=== PATIENT | female | born 1940 | race African-American/Black ===

== ENCOUNTER → 2018-04-04 | Outpatient (CLI) | payer MEDICARE ==
[2015-11-23 14:20] VITALS: BP 166/90
[~2018-04-04] MED LIST: AMLO5TAB4 PO; AMLO5TAB7 PO; ASPI-482 PO; ATOR10TA60 PO; BIOT10005 PO; CHOL1CRY3 MC; CHOL5000 PO; COD1CAPS2 PO; HYDR-2761 PO; LEVO100T PO; LEVO100T5 PO; LISI-334 PO; METO-239 PO; OMEG1CAP27 PO; PANT40TA3 PO; PREN1TAB58 PO; SUCR1TAB35 PO; [UNRECOGNIZED DRUG - CODE] MC
[2018-04-04 12:52] LABS: BASO # 0.2 x10^3/uL (0.0-0.2); BASO % 1 % (0-3); EOS # 0.1 x10^3/uL (0.0-0.7); EOS % 1 % (0-3); HEMATOCRIT 43.8 % (36.0-47.0); HEMOGLOBIN 14.9 g/dL (12.0-15.5); LYMPH # 1.6 x10^3/uL (1.0-4.8); LYMPH % 12 % (24-48); MEAN CORPUSCULAR HEMOGLOBIN 31 pg (25-35); MEAN CORPUSCULAR HGB CONC 34 g/dL (31-37); MEAN CORPUSCULAR VOLUME 90 fL (79-100); MONO # 1.3 x10^3/uL (0.0-1.1); MONO % 9 % (0-9); NEUT # 10.6 x10^3uL (1.8-7.7); NEUT % 77 % (31-73); PLATELET COUNT 180 x10^3/uL (140-400); RED BLOOD COUNT 4.85 x10^6/uL (3.50-5.40); RED CELL DISTRIBUTION WIDTH 14.8 % (11.5-14.5); WHITE BLOOD COUNT 13.7 x10^3/uL (4.0-11.0)
== END | disposition home or self-care (01) ==
LOC: LAB 12:11
PROVIDERS: ATTEND Physical Medicine & Rehabilitation
DX: M25.531 Pain in right wrist (principal); R22.31 Localized swelling, mass and lump, right upper limb
CPT/HCPCS: 36415; 84550; 85025

== ENCOUNTER 2018-12-03 10:12 | Emergency (ER) | payer MEDICARE ==
[~2018-12-03] VITALS: Ht 167.6 cm; Wt 72.6 kg
[~2018-12-03 10:12] MED LIST changes: +AMLO5TAB10 PO; -AMLO5TAB7 PO; +CHOL10003 PO; +HYDR12.575 PO; +MV-M1TAB54 PO; -PANT40TA3 PO; +PANT40TA77 PO; +VIT1CAPS44 PO
[2018-12-03 10:26] VITALS: BP 178/79
--- NOTE | 2018-12-03 10:54 | RAD ---
WRIST 3V LEFT History: Smashed left wrist. Pain. Technique: 3 views left wrist. Comparison: None. Findings: Normal alignment. No fracture. Soft tissues unremarkable. Mild distal radial ulnar degenerative changes. Moderate first carpometacarpal DJD. Impression: 1. No acute osseous abnormality. 2. First carpometacarpal and distal radial ulnar DJD. Electronically signed by: Deshaun Rain DO (12/03/2018 10:50 AM) [facility]
--- NOTE | 2018-12-03 11:07 | PHYS DOC ---
Past Medical History Past Medical History: Hypertension, Hypothyroid, MT, P.U.D. Past Surgical History: Appendectomy, Hysterectomy, Other Additional Past Surgical Histo: THYROIDECTOMY, CARDIAC STENT, TUMOR REMOVAL (STOMACH) Alcohol Use: Rarely Drug Use: None Adult General Chief Complaint Chief Complaint: HAND PROBLEM HPI HPI Patient is a 78 year old female who presents with on November 22 she had a cardiac catheter done in states that the nurse had put her wrist down on the table hard. Patient states after that she was having left wrist pain and some tingling. Patient states the tingling and/or numbness has resolved but she still has some bruising to the left wrist on the radial side. Patient states she just wants to make sure that it is not broken. She rates her pain an 8 out of 10 and states it just aches. Review of Systems Review of Systems Constitutional: Denies fever or chills [] Musculoskeletal: Left wrist pain. Denies back pain or joint pain [] Integument: Denies rash or skin lesions [] Neurologic: Denies headache, focal weakness or sensory changes [] All other systems were reviewed and found to be within normal limits, except as documented in this note. Allergies Allergies Allergies Coded Allergies Type Severity Reaction Last Updated Verified codeine Allergy Intermediate 08/08/13 Yes egg Allergy Intermediate 11/20/18 Yes Physical Exam Physical Exam Constitutional: Well developed, well nourished, no acute distress, non-toxic appearance. [] Skin: Left lateral wrist nickel sized bruise. Warm, dry, no erythema, no rash. [] Extremities: Left lateral radial wrist tenderness, no cyanosis, no clubbing, ROM intact, no edema. [] Neurologic: Alert and oriented X 3, normal motor function, normal sensory function, no focal deficits noted. [] Psychologic: Affect normal, judgement normal, mood normal. [] Current Patient Data Vital Signs Vital Signs Date Time Temp Pulse Resp B/P (MAP) Pulse Ox O2 Delivery O2 Flow Rate FiO2 12/03/18 10:26 98.4 77 18 178/79 (112) 99 Room Air 98.4 EKG EKG [] Radiology/Procedures Radiology/Procedures [] Impressions: [facility] [address] [place] [address] IMAGING REPORT Signed PATIENT: LISA FLORES ACCOUNT: [id number] : 1940 LOCATION: ER AGE: 78 SEX: F EXAM STATUS: REG ER ORD. PHYSICIAN: DIANE RAMIRES APRN REASON: PAIN, SMASHED LEFT WRIST PROCEDURE: WRIST 3V LEFT WRIST 3V LEFT History: Smashed left wrist. Pain. Technique: 3 views left wrist. Comparison: None. Findings: Normal alignment. No fracture. Soft tissues unremarkable. Mild distal radial ulnar degenerative changes. Moderate first carpometacarpal DJD. Impression: 1. No acute osseous abnormality. 2. First carpometacarpal and distal radial ulnar DJD. Electronically signed by: Deshaun Rain DO (12/03/2018 10:50 AM) [facility] DICTATED and SIGNED BY: DESHAUN RAIN DO DATE: 12/03/18 1050 Course & Med Decision Making Course & Med Decision Making Patient is a 78 year old female who presents with on November 22 she had a cardiac catheter done in states that the nurse had put her wrist down on the table hard. Patient states after that she was having left wrist pain and some tingling. Patient states the tingling and/or numbness has resolved but she still has some bruising to the left wrist on the radial side. Patient states she just wants to make sure that it is not broken. She rates her pain an 8 out of 10 and states it just aches. Radial pulses strong and present. There is no swelling in the extremity. Cap refill less than 3 seconds. Patient denies any numbness or tingling. Patient denies the skin turning colors. Patient denies the extremity going cold. Skin is pink warm and dry. Patient has full range of motion of the wrist and all fingers. There is slight bruising to the lateral radial wrist but no swelling. Patient states it is only slightly tender to palpation. X-ray shows 1. No acute osseous abnormality. 2. First carpometacarpal and distal radial ulnar DJD. Patient to use Tylenol or Tylenol arthritis [id number]. Patient is on aspirin 81 mg. Patient to follow-up with her primary care provider. Dragon Disclaimer Dragon Disclaimer This electronic medical record was generated, in whole or in part, using a voice recognition dictation system. Departure Departure Impression: Primary Impression: Wrist pain, left Disposition: 01 HOME, SELF-CARE Condition: STABLE Referrals: KRISTINE JAMES MD (PCP) Patient Instructions: Wrist Pain Additional Instructions: Follow-up with primary care provider. Child using Tylenol arthritis and ice. DIANE RAMIRES APRN Dec 03, 2018 11:07
== END 2018-12-03 11:37 | disposition home or self-care (01) ==
LOC: ER 10:12
DX: M25.532 Pain in left wrist (principal); R20.0 Anesthesia of skin; I10 Essential (primary) hypertension; E03.9 Hypothyroidism, unspecified; I25.2 Old myocardial infarction; Z95.5 Presence of coronary angioplasty implant and graft; Z88.5 Allergy status to narcotic agent; Z91.012 Allergy to eggs
CPT/HCPCS: 73110; 99284

== ENCOUNTER 2019-02-16 13:21 | Inpatient (IN) | payer MEDICARE ==
[~2019-02-16] VITALS: Ht 167.6 cm; Wt 82.7 kg
[~2019-02-16 13:21] MED LIST changes: -COD1CAPS2 PO; +COD1CAPS6 PO
[2019-02-16 13:34] LABS: CREATININE ISTAT 1.5 mg/dL (0.5-1.4); ION CA ISTAT 1.2 mmol/L (1.13-1.32); POTASSIUM ISTAT 3.8 mmol/L (3.5-5.0)
[2019-02-16 13:39] LABS: BASO # 0.1 x10^3/uL (0.0-0.2); BASO % 1 % (0-3); EOS # 0.3 x10^3/uL (0.0-0.7); EOS % 3 % (0-3); HEMOGLOBIN 15.9 g/dL (12.0-15.5); LYMPH # 3.4 x10^3/uL (1.0-4.8); LYMPH % 32 % (24-48); MEAN CORPUSCULAR HEMOGLOBIN 30 pg (25-35); MEAN CORPUSCULAR HGB CONC 33 g/dL (31-37); MEAN CORPUSCULAR VOLUME 90 fL (79-100); MONO # 0.7 x10^3/uL (0.0-1.1); MONO % 7 % (0-9); NEUT # 6.1 x10^3/uL (1.8-7.7); NEUT % 58 % (31-73); PLATELET COUNT 181 x10^3/uL (140-400); RED BLOOD COUNT 5.34 x10^6/uL (3.50-5.40); RED CELL DISTRIBUTION WIDTH 14.6 % (11.5-14.5); WHITE BLOOD COUNT 10.6 x10^3/uL (4.0-11.0)
[2019-02-16] MEDS: MORPHINE SULFATE 4 MG/ML VIAL. IV/SQ PRN ×2 (13:43→15:05)
[2019-02-16 13:47] LABS: CALCIUM 9.9 mg/dL (8.5-10.1); CREATININE 1.6 mg/dL (0.6-1.0); GFR 37.9; POTASSIUM 3.8 mmol/L (3.5-5.1)
[2019-02-16 13:53] LABS: ALBUMIN 3.2 g/dL (3.4-5.0); ALBUMIN/GLOBULIN RATIO 0.8 (1.0-1.7); TOTAL BILIRUBIN 0.6 mg/dL (0.2-1.0)
[2019-02-16] MEDS ORDERED: IV NORMAL SALINE 1000ML BAG 1,000 ML IV ONE (14:00)
--- NOTE | 2019-02-16 14:00 | RAD ---
EXAM: CHEST ONE VIEW. HISTORY: Chest pain. COMPARISON: 11/19/2018. FINDINGS: A frontal view of the chest is obtained. The lungs are expanded to the 11th posterior interspaces. There are no confluent infiltrates. There is a calcified granuloma in the left apex. There is no pneumothorax or pleural effusion. The heart is not enlarged. There are atherosclerotic calcifications of the aorta. IMPRESSION: 1. Hyperinflation. Correlate for air trapping. No confluent infiltrates. Electronically signed by: Stephany Be MD (02/16/2019 1:58 PM) [facility]
--- NOTE | 2019-02-16 14:40 | RAD ---
EXAM: CT OF THE CHEST, ABDOMEN AND PELVIS WITHOUT CONTRAST. HISTORY: Chest and abdominal pain. Concern for dissection. Acute renal failure. TECHNIQUE: Computed tomography of the chest, abdomen and pelvis was performed without intravenous contrast. COMPARISON: None. FINDINGS: Bone windows reveal no suspicious lesions. There is moderate to severe central canal stenosis from L3 through S1. There are no pathologically enlarged mediastinal or axillary lymph nodes. Calcified mediastinal lymph nodes are likely secondary to old granulomatous disease. There is no pleural or pericardial effusion. The heart is not enlarged. There are atherosclerotic calcifications of the coronary arteries. The thoracic and abdominal aorta are normal in caliber. There are mild to moderate atherosclerotic calcifications. There is no evidence of dissection or intramural hematoma. There is no retroperitoneal hematoma. Lung windows reveal a calcified granuloma in the left upper lobe. There are no acute infiltrates. The liver, gallbladder, pancreas, adrenal glands and spleen are unremarkable without contrast. Both kidneys are unremarkable without hydronephrosis. Sigmoid diverticulosis is mild. There is no evidence of appendicitis. The uterus is surgically absent. There is no small bowel obstruction. IMPRESSION: 1. No aortic aneurysm. No evidence of dissection or intramural hematoma by noncontrast CT. 2. Moderate to severe lumbar degenerative changes result in moderate to severe central canal stenosis from L3 through S1. *One or more of the following individualized dose reduction techniques were utilized for this examination: 1. Automated exposure control. 2. Adjustment of the mA and/or kV according to patient size. 3. Use of iterative reconstruction technique. Electronically signed by: Stephany Be MD (02/16/2019 2:37 PM) [facility]
--- NOTE | 2019-02-16 15:04 | PHYS DOC ---
Past Medical History Past Medical History: A-Fib, Hypertension, Hyperthyroid, LA Past Surgical History: Appendectomy, Hysterectomy, Other Additional Past Surgical Histo: STENT Alcohol Use: None Drug Use: None The HEART Score for CP Pts Risk Factors: Risk Factors: DM, Current or recent (<one month) smoker, HTN, HLP, family history of CAD, obesity. Risk Scores: Score 0 - 3: 2.5% MACE over next 6 weeks - Discharge Home Score 4 - 6: 20.3% MACE over next 6 weeks - Admit for Clinical Observation Score 7 - 10: 72.7% MACE over next 6 weeks - Early Invasive Strategies Adult General Chief Complaint Chief Complaint: SYNCOPE HPI HPI Patient is a 78-year-old female who presents with complaint of upper abdominal pain radiating into her back that started shortly prior to arrival. Patient reportedly had a syncopal episode and after coming to, had the pain. Patient also indicates that she has pain in both her arms and states that she feels like she is having a difficult time breathing. She rates her pain to be a 9 out of 10. She denies any actual chest pain. EMS indicates that initially patient's blood pressure was very low at 70 over palp. Patient states that she was not having any pain prior to syncopal episode.[] Review of Systems Review of Systems Constitutional: Denies fever or chills [] Respiratory: Positive shortness of breath [] Cardiovascular: No additional information not addressed in HPI [] GI: Denies abdominal pain, nausea, vomiting or diarrhea [] Musculoskeletal: Complains of mid back pain [] Neurologic: Denies headache, focal weakness or sensory changes. Positive syncopal episode. [] All other systems were reviewed and found to be within normal limits, except as documented in this note. Current Medications Current Medications Current Medications Medications (Trade) Dose Ordered Sig/Lacie Start Time Stop Time Status Last Admin Dose Admin Heparin Sodium (Porcine) (Heparin Sodium) 1,950 unit PRN Q6HRS PRN 02/16/19 15:30 Heparin Sodium/ Dextrose 500 ml @ 0 mls/hr CONT PRN 02/16/19 15:30 02/16/19 15:16 18.5 MLS/HR Morphine Sulfate (Morphine Sulfate) 4 mg PRN Q15MIN PRN 02/16/19 13:30 02/17/19 13:29 02/16/19 15:05 4 MG Sodium Chloride 1,000 ml @ 125 mls/hr 1X ONCE 02/16/19 14:00 02/16/19 21:59 02/16/19 13:54 125 MLS/HR Allergies Allergies Allergies Coded Allergies Type Severity Reaction Last Updated Verified codeine Allergy Intermediate 08/08/13 Yes egg Allergy Intermediate 11/20/18 Yes Physical Exam Physical Exam Constitutional: Well developed, well nourished, in moderate distress, non-toxic appearance. [] HENT: Normocephalic, atraumatic, bilateral external ears normal, oropharynx moist, no oral exudates, nose normal. [] Eyes: PERRLA, EOMI, conjunctiva normal, no discharge. [] Neck: Normal range of motion, no tenderness, supple, no stridor. [] Cardiovascular: Bradycardic rate with regular rhythm[] Lungs & Thorax: Bilateral breath sounds clear to auscultation [] Abdomen: Bowel sounds normal, soft, no tenderness. [] Skin: Warm, dry, no erythema, no rash. [] Extremities: No tenderness, no cyanosis, no clubbing, ROM intact. [] Neurologic: Alert and oriented X 3, no focal deficits noted. [] Current Patient Data Vital Signs Vital Signs Date Time Temp Pulse Resp B/P (MAP) Pulse Ox O2 Delivery O2 Flow Rate FiO2 02/16/19 13:43 17 02/16/19 13:39 60 138/64 (88) 100 Room Air 02/16/19 13:21 98.6 98.6 Lab Values Laboratory Tests Test 02/16/19 13:20 02/16/19 13:29 White Blood Count 10.6 x10^3/uL (4.0-11.0) Red Blood Count 5.34 x10^6/uL (3.50-5.40) Hemoglobin 15.9 g/dL (12.0-15.5) H Hematocrit 48.0 % (36.0-47.0) H Mean Corpuscular Volume 90 fL (79-100) Mean Corpuscular Hemoglobin 30 pg (25-35) Mean Corpuscular Hemoglobin Concent 33 g/dL (31-37) Red Cell Distribution Width 14.6 % (11.5-14.5) H Platelet Count 181 x10^3/uL (140-400) Neutrophils (%) (Auto) 58 % (31-73) Lymphocytes (%) (Auto) 32 % (24-48) Monocytes (%) (Auto) 7 % (0-9) Eosinophils (%) (Auto) 3 % (0-3) Basophils (%) (Auto) 1 % (0-3) Neutrophils # (Auto) 6.1 x10^3/uL (1.8-7.7) Lymphocytes # (Auto) 3.4 x10^3/uL (1.0-4.8) Monocytes # (Auto) 0.7 x10^3/uL (0.0-1.1) Eosinophils # (Auto) 0.3 x10^3/uL (0.0-0.7) Basophils # (Auto) 0.1 x10^3/uL (0.0-0.2) Sodium Level 143 mmol/L (136-145) Potassium Level 3.8 mmol/L (3.5-5.1) Chloride Level 104 mmol/L (98-107) Carbon Dioxide Level 28 mmol/L (21-32) Anion Gap 11 (6-14) 14 mmol/L (6-14) Blood Urea Nitrogen 16 mg/dL (7-20) Creatinine 1.6 mg/dL (0.6-1.0) H Estimated GFR (Cockcroft-Gault) 37.9 BUN/Creatinine Ratio 10 (6-20) Glucose Level 156 mg/dL (70-99) H 152 mg/dL (70-99) H Calcium Level 9.9 mg/dL (8.5-10.1) Magnesium Level 2.0 mg/dL (1.8-2.4) Total Bilirubin 0.6 mg/dL (0.2-1.0) Aspartate Amino Transferase (AST) 23 U/L (15-37) Alanine Aminotransferase (ALT) 22 U/L (14-59) Alkaline Phosphatase 93 U/L (46-116) Troponin I Quantitative 0.061 ng/mL (0.000-0.055) PG-Ldh-T-Type Natriuretic Peptide 972 pg/mL (0-449) H Total Protein 7.0 g/dL (6.4-8.2) Albumin 3.2 g/dL (3.4-5.0) L Albumin/Globulin Ratio 0.8 (1.0-1.7) L Lipase 92 U/L (73-393) POC Hemoglobin 17.0 g/dL (12-15) H POC Hematocrit 50 % (36-40) H POC Sodium 142 mmol/L (135-145) POC Potassium 3.8 mmol/L (3.5-5.0) POC Chloride 105 mmol/L (98-110) POC Total CO2 28 mmol/L (23-32) POC Blood Urea Nitrogen 19 mg/dL (8-26) POC Creatinine 1.5 mg/dL (0.5-1.4) H POC Ionized Calcium (Claudia) 1.20 mmol/L (1.13-1.32) Laboratory Tests 02/16/19 13:20 Laboratory Tests 02/16/19 13:20 02/16/19 13:29 EKG EKG [] Interpretation Time: EKG demonstrates sinus rhythm with rate of 59. There is ST segment depression in the lateral precordial leads. Radiology/Procedures Radiology/Procedures [] Impressions: PROCEDURE: CT CHEST ABDOMEN PELVIS WO EXAM: CT OF THE CHEST, ABDOMEN AND PELVIS WITHOUT CONTRAST. HISTORY: Chest and abdominal pain. Concern for dissection. Acute renal failure. TECHNIQUE: Computed tomography of the chest, abdomen and pelvis was performed without intravenous contrast. COMPARISON: None. FINDINGS: Bone windows reveal no suspicious lesions. There is moderate to severe central canal stenosis from L3 through S1. There are no pathologically enlarged mediastinal or axillary lymph nodes. Calcified mediastinal lymph nodes are likely secondary to old granulomatous disease. There is no pleural or pericardial effusion. The heart is not enlarged. There are atherosclerotic calcifications of the coronary arteries. The thoracic and abdominal aorta are normal in caliber. There are mild to moderate atherosclerotic calcifications. There is no evidence of dissection or intramural hematoma. There is no retroperitoneal hematoma. Lung windows reveal a calcified granuloma in the left upper lobe. There are no acute infiltrates. The liver, gallbladder, pancreas, adrenal glands and spleen are unremarkable without contrast. Both kidneys are unremarkable without hydronephrosis. Sigmoid diverticulosis is mild. There is no evidence of appendicitis. The uterus is surgically absent. There is no small bowel obstruction. IMPRESSION: 1. No aortic aneurysm. No evidence of dissection or intramural hematoma by noncontrast CT. 2. Moderate to severe lumbar degenerative changes result in moderate to severe central canal stenosis from L3 through S1. *One or more of the following individualized dose reduction techniques were utilized for this examination: 1. Automated exposure control. 2. Adjustment of the mA and/or kV according to patient size. 3. Use of iterative reconstruction technique. Electronically signed by: Stephany Be MD (02/16/2019 2:37 PM) [facility] DICTATED and SIGNED BY: BUD BE MD DATE: 02/16/19 1438 Course & Med Decision Making Course & Med Decision Making Pertinent Labs and Imaging studies reviewed. (See chart for details) [] Dragon Disclaimer Dragon Disclaimer This electronic medical record was generated, in whole or in part, using a voice recognition dictation system. Departure Departure Impression: Primary Impression: Atypical chest pain Additional Impressions: Elevated troponin I level Acute kidney injury Syncope Disposition: ADMITTED INPATIENT Admitting Physician: [place] (Dr. Brown) Condition: IMPROVED Referrals: KRISTINE JAMES MD (PCP) The HEART Score for CP Pts HEART Score for Chest Pain: HEART Score for Chest Pain Response (Comments) Value History Moderately Suspicious [address] Depression 2 Age > 65 2 Risk Factors >3 Risk Factors or Hx CAD 2 Troponin >1-<3x Normal Limit 1 Total 8 Risk Factors: Risk Factors: DM, Current or recent (<one month) smoker, HTN, HLP, family history of CAD, obesity. Risk Scores: Score 0 - 3: 2.5% MACE over next 6 weeks - Discharge Home Score 4 - 6: 20.3% MACE over next 6 weeks - Admit for Clinical Observation Score 7 - 10: 72.7% MACE over next 6 weeks - Early Invasive Strategies Problem Qualifiers Additional Impressions: Syncope Syncope type: unspecified Qualified Codes: R55 - Syncope and collapse JAKOB SCOTT Jr. DO Feb 16, 2019 15:04
[2019-02-16] MEDS ORDERED: HEPARIN for IV BOLUS 10,000 UNIT/10 ML VIAL. IV ONE (15:15)
[2019-02-16] MEDS ORDERED: HEPARIN for IV BOLUS 10,000 UNIT/10 ML VIAL. IV PRN (15:30)
[2019-02-16] MEDS ORDERED: HEPARIN 25,000UTS/500ML PREMIX 500 ML IV PRN (15:30)
[2019-02-16] MEDS: IV NORMAL SALINE 1000ML BAG 1,000 ML IV SCH ×3 (15:31→22:34)
[2019-02-16] MEDS ORDERED: ONDANSETRON PF 4 MG/2 ML VIAL. IV PRN (15:45)
[2019-02-16 17:00] VITALS: BP 151/76
[2019-02-16 17:21] LABS: BILIRUBIN,URINE NEGATIVE (NEG); CLARITY,URINE CLEAR; COLOR,URINE YELLOW; NITRITE,URINE NEGATIVE (NEG); PH,URINE 8.5; PROTEIN,URINE NEGATIVE (NEG-TRACE); UROBILINOGEN,URINE 0.2 mg/dL (0.2 mg/dL)
[2019-02-16 17:27] LABS: BACTERIA,URINE 0 /HPF (0-FEW); HYALINE CASTS, URINE MANY /HPF; RBC,URINE 0 /HPF (0-2); SQUAMOUS EPITHELIAL CELL,UR MOD /LPF
[2019-02-16 18:29] VITALS: BP 160/78
[2019-02-16] MEDS: cefTRIAXone IV Push 1 GM VIAL. IVP SCH (20:37)
[2019-02-16] MEDS: MORPHINE SULFATE 4 MG/ML VIAL. IV PRN (20:41)
[2019-02-16] MEDS ORDERED: diphenhydrAMINE HCL 25 MG CAPSULE PO PRN (21:15)
--- NOTE | 2019-02-16 22:07 | HP ---
ADMIT DATE: 02/16/2019 CHIEF COMPLAINT: Syncope. HISTORY OF PRESENT ILLNESS: The patient is a pleasant 78-year-old female who presents to the ER with a syncopal episode, was witnessed by her daughter. She has got associated abdominal pain when she woke up. It is radiating to the back, rated at 9/10. She had pain in her arms as well. When the EMS arrived, her pressure was 70/palp. Describes her symptoms as irritating, rated at 6/10. Moving makes it worse, sitting still makes it better. I discussed the case with ER physician. We are going to admit the patient and consult Cardiology and Pulmonary because I am concerned she could have had an MD or a pulmonary embolism. She also has a slightly elevated troponin. The patient is being placed on a heparin drip and going to the telemetry floor. PAST MEDICAL HISTORY: Atrial fibrillation, hypertension, hyperlipidemia, hypothyroidism, myocardial infarction, appendectomy, hysterectomy, cardiac stents. ALLERGIES: CODEINE AND EGGS. FAMILY HISTORY: Coronary artery disease and diabetes. SOCIAL HISTORY: She is retired. 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 She does not drink, smoke or take drugs. MEDICATIONS: Reviewed, please refer to the MRAD. She is on 7 home medications including amlodipine, aspirin, hydrocodone, Synthroid, vitamins. REVIEW OF SYSTEMS: GENERAL: No history of weight change, weakness or fevers. SKIN: No bruising, hair changes or rashes. EYES: No blurred, double or loss of vision. NOSE AND THROAT: No history of nosebleeds, hoarseness or sore throat. HEART: No history of palpitations, chest pain or shortness of breath on exertion. LUNGS: Denies cough, hemoptysis, wheezing or shortness of breath. GASTROINTESTINAL: She complains of some abdominal pain. GENITOURINARY: No history of frequency, urgency, hesitancy or nocturia. NEUROLOGIC: Denies history of numbness, tingling, tremor or weakness. PSYCHIATRIC: No history of panic, anxiety or depression. ENDOCRINE: No history of heat or cold intolerance, polyuria or polydipsia. EXTREMITIES: Denies muscle weakness, joint pain, pain on walking or stiffness. PHYSICAL EXAMINATION: VITALS: Within normal limits and are stable. GENERAL: No apparent distress. Alert and oriented. HEENT: Head is normocephalic, atraumatic, pupils were equally round and reactive to light and accommodation. Her nasal, oral and ocular mucosa is normal and moist. NECK: Supple, no JVD, no thyromegaly was noted. LUNGS: Clear to auscultation in all lung castillo without rhonchi or wheezing. HEART: RRR, S1, S2 present. Peripheral pulses intact, no obvious murmurs were noted. ABDOMEN: Soft, nontender. Positive bowel sounds no organomegaly, normal bowel sounds. EXTREMITIES: Without any cyanosis, clubbing, or edema. Pedal pulses intact, Homans sign is negative. NEUROLOGIC: Normal speech, normal tone. A & O x3, moves all extremities, no obvious focal deficits. PSYCHIATRIC: Normal affect, normal mood. Stable. SKIN: No ulcerations or rashes, good skin turgor, no jaundice. VASCULAR: Good capillary refill, neurovascular bundle appears to be intact. MUSCULOSKELETAL: She has normal range of motion. She is well-nourished, well-developed. LABORATORY DATA: White count 10, hemoglobin 16, platelets 181. Electrolytes are normal. Troponin is 0.07. We also had another one, it was 0.06. BNP is 972. CT of the chest and abdomen showed no aneurysm, moderate to severe degenerative joint disease at L3 through S1. She has some central canal stenosis through those same regions. Chest x-ray showed hyperinflation. She has a trace amount of leukocyte esterase and 11-20 white cells. ASSESSMENT AND PLAN: Syncope and elevated troponin and abdominal/chest pain, and UTI in an elderly female with the above noted comorbidities. The patient is being admitted. We will check serial enzymes, serial EKGs, echocardiogram. IV heparin. Consult Cardiology. Consult Pulmonary. Continue DVT prophylaxis. Full code. P.r.n. morphine, IV saline at 75 mL an hour, p.r.n. Zofran. Urine culture. Ceftriaxone 1 gram IV every 24 hours. Long-term prognosis guarded. MAYRA SPEARS DO DR: NEHA/baldomero JOB#: [id number] / [id number]
[2019-02-16 23:00] VITALS: BP 149/66
[2019-02-17] VITALS (11 sets, daily range): BP systolic 127–186; BP diastolic 53–85
[2019-02-17 05:25] LABS: HEMATOCRIT 42.1 % (36.0-47.0); HEMOGLOBIN 13.7 g/dL (12.0-15.5); RED BLOOD COUNT 4.65 x10^6/uL (3.50-5.40); RED CELL DISTRIBUTION WIDTH 14.7 % (11.5-14.5); WHITE BLOOD COUNT 9.4 x10^3/uL (4.0-11.0)
--- NOTE | 2019-02-17 06:31 | EKG ---
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
--- NOTE | 2019-02-17 06:33 | EKG ---
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
[2019-02-17] MEDS: LEVOTHYROXINE 100 MCG TABLET PO SCH (06:52)
[2019-02-17] MEDS: IV NORMAL SALINE 1000ML BAG 1,000 ML IV SCH (06:52)
--- NOTE | 2019-02-17 07:06 | PDOC ---
Provider Note Provider Note [id number] dyspnea abd pain, ? elevated trop leg pain le venous doppler cardiology consult, ANAND Subramanian MD Feb 17, 2019 07:06
--- NOTE | 2019-02-17 07:19 | CONS ---
DATE OF CONSULTATION: 02/17/2019 REASON FOR CONSULTATION: I was asked to see this 78-year-old lady for shortness of breath. HISTORY OF PRESENT ILLNESS: She has history of 03-[id number] smoking, stopped smoking 10 years ago. She has COPD and has been followed by a machine tool technology instructor. She uses albuterol as needed. She presented to the Emergency Room with acute abdominal pain. Pain was in her mid-upper quadrant pain. She had one bowel movement, which appeared black. Her blood pressure was low in 70s, it was checked by EMS. On arrival to Emergency Room, her blood pressure was 177/77. She had shortness of breath with pain. She denies cough or sputum production, wheezing, fever or chills. She has had some leg pain. She was admitted in October for chest pain. She was found to have a non-ST elevation CT, but her cardiac catheterization did not show significant coronary artery disease, it did show hypertensive heart disease. PAST MEDICAL HISTORY: COPD, hypertension, coronary artery disease, status post stent in 2016. ALLERGIES: CODEINE, EGG. MEDICATIONS: Currently, she is on heparin drip, multivitamin, vitamin D, aspirin, Norvasc, Synthroid, Rocephin. SOCIAL HISTORY: History of [id number]-[id number] smoking, stopped smoking 10 years ago. FAMILY HISTORY: There is no history of lung disease. REVIEW OF SYSTEMS: She has had some leg pain. Other systems are otherwise negative. PHYSICAL EXAMINATION: GENERAL: This is a well-developed lady. VITAL SIGNS: Her O2 saturation on room air is 98%, blood pressure 135/63, respiratory rate 18, heart rate 62, temperature 98.4. HEENT: Normocephalic, atraumatic. Pupils equal, round, reactive to light. Throat is clear. Nose is clear. NECK: There is no JVD, lymphadenopathy or thyromegaly. CARDIOVASCULAR: Regular rate and rhythm. PMI is nondisplaced. CHEST: Chest inspection is normal. LUNGS: Clear to auscultation and percussion is within normal limit. ABDOMEN: Soft. There is some tenderness in the epigastric area. Bowel sounds are good. There is no mass. EXTREMITIES: There is no edema. LYMPHATICS: There is no lymphadenopathy. SKIN: Warm. NEUROLOGIC: Alert and oriented. LABORATORY DATA: I reviewed the following lab data: Chest x-rays shows hyperinflation. CT of abdomen and pelvis and lungs without contrast did not show aortic aneurysm, moderate to severe lumbar degenerative changes resulting in moderate to severe central canal stenosis from L3-S1. Lungs were clear. Sodium 142, potassium 3.8, chloride 105, CO2 of 28, glucose 152, BUN 19, creatinine 1.5. Troponin 0.061, 0.074, 0.089. BNP 972, lipase 92. IMPRESSION: 1. Dyspnea. She does have COPD. The pain was causing her to have shortness of breath. Currently she does not have shortness of breath. 2. Chronic obstructive pulmonary disease, stable. 3. Coronary artery disease. 4. Elevated troponin ? non-ST elevation myocardial infarction. 5. Epigastric pain ? gastritis versus gastroesophageal reflux disease. 6. Hypertension. 7. Acute kidney injury. 8. Ex-smoker. PLAN AND RECOMMENDATIONS: 1. Titrate FiO2 to keep O2 saturation 92%. 2. Start Protonix. She had a colonoscopy last year, which was normal. She had an EGD about 5 years ago, which did not show any abnormality. She may require GI consult and another EGD. 3. I will check lower extremity venous Doppler. 4. Cardiology is consulted. 5. Echocardiogram per Cardiology. 6. Continue not smoking. 7. Start bronchodilator. Thank you very much for allowing me to participate in care of this very nice lady. The findings and recommendations were discussed with the patient and RN. The patient understood and agreed to proceed with the plan. ANAND CNUHA M.D. : SALOMÓN/baldomero JOB#: [id number] / [id number]
[2019-02-17] MEDS: IPRATRPIUM/ALBUTEROL 0.5/2.5MG 3 ML NEBU. NEB SCH ×4 (07:36→19:32)
[2019-02-17] MEDS ORDERED: guaiFENesin DM 200MG/20MG 10 ML SYRUP PO PRN (08:45)
[2019-02-17] MEDS ORDERED: ONDANSETRON PF 4 MG/2 ML VIAL. IV PRN (08:45)
[2019-02-17] MEDS ORDERED: CALCIUM CARBONATE 500 MG TAB.CHEW PO PRN (08:45)
[2019-02-17] MEDS ORDERED: ASPIRIN ENTERIC COATED 81 MG TABLET.DR. PO SCH (09:00)
[2019-02-17] MEDS ORDERED: COD LIVER OIL PO SCH (09:00)
[2019-02-17] MEDS: BENZONATATE 100 MG CAPSULE. PO SCH ×3 (09:00→20:31)
[2019-02-17] MEDS ORDERED: VIT A PO SCH (09:00)
[2019-02-17] MEDS ORDERED: D3 PO SCH (09:00)
--- NOTE | 2019-02-17 09:04 | RAD ---
EXAM: Bilateral lower extremity venous Doppler. HISTORY: Bilateral lower extremity pain/swelling. Anticoagulated. COMPARISON: None. FINDINGS: Grayscale and Doppler analysis of the both lower extremity deep venous systems was performed with graded compression and augmentation. The common femoral, greater saphenous, superficial femoral, popliteal and calf veins were assessed. There is no evidence of deep venous thrombosis. IMPRESSION: 1. No evidence of deep venous thrombosis. Electronically signed by: Stephany Be MD (02/17/2019 9:02 AM) [facility]
[2019-02-17] MEDS: MULTIVITAMIN with MINERAL TABLET. PO SCH (09:27)
[2019-02-17] MEDS: CHOLECALCIFEROL (VITAMIN D3) 1,000 UNIT TABLET PO SCH (09:28)
[2019-02-17] MEDS: amLODIPine BESYLATE 5 MG TABLET PO SCH (09:29)
[2019-02-17] MEDS: PANTOPRAZOLE 40 MG TABLET.DR. PO SCH (09:29)
[2019-02-17] MEDS: HYDROcodone/APAP 5/325MG 1 TAB TABLET PO PRN ×2 (09:30→19:12)
--- NOTE | 2019-02-17 10:30 | PDOC ---
PROGRESS NOTES Chief Complaint Chief Complaint 1. TRansient SLurred speech by EMS 2. TRop elev x 3 (o.06, 0.0.7, 0.08) - no CP 3. CAD with 1 stent on ASA 81 and compliant 3,. HX COPD, ex smoker, quit 10 yrs, 30 pack yrs 4. LEft arm pain since oct 2018, left wrist pain - follows with Dr Thurman, unrecalled recent abx 5. LEft secnd digit wound and swelling - wound care, on unrecalled abx currently 6. ABd pain since october, burning, neg CT History of Present Illness History of Present Illness NO CP, on heparin gtt per cards bec of elev trop x 3, rather mild 1 cardiac stent, ASA 81 complaint SHE Has a lot or ROS positive in my visit 1. left second digit paronychia - on abx per physiatry seen as OP 2. Abd pain,s econd admission for the same with neg CT - consult GI 3. COPD - pulmo on board 4. LEft wrist/arm pain, started Oct 2018 when she had [facility] through [facility]: EMS was concerned re transient slurring so CT head now and neuro consult HEparin gtt per cards Add physiatry consult for the left wrist arm pain GEt her current abx from her [facility] [phone] Add GI consult for that abd pain with neg CT - she describes as burning, never has seen GI jasvir higuera Wound care to see left finger COnt PO abx from [facility] Vitals Vitals Vital Signs Date Time Temp Pulse Resp B/P (MAP) Pulse Ox O2 Delivery O2 Flow Rate FiO2 02/17/19 09:30 Room Air 02/17/19 09:29 72 129/59 02/17/19 07:39 99 02/17/19 07:30 98.1 14 98.1 02/16/19 16:30 1.0 Physical Exam General: Alert, Oriented X3, Cooperative, No acute distress Heart: Regular rate, Normal S1, Normal S2 Lungs: Clear Abdomen: Normal bowel sounds, Soft, No tenderness, No hepatosplenomegaly Extremities: No clubbing, No cyanosis, Normal pulses, Other (she has left second digit paronychia) Skin: No rashes, No breakdown, No significant lesion Labs LABS Laboratory Tests Test 02/16/19 13:20 02/16/19 13:29 02/16/19 17:10 02/16/19 19:45 White Blood Count 10.6 x10^3/uL (4.0-11.0) Red Blood Count 5.34 x10^6/uL (3.50-5.40) Hemoglobin 15.9 g/dL (12.0-15.5) Hematocrit 48.0 % (36.0-47.0) Mean Corpuscular Volume 90 fL (79-100) Mean Corpuscular Hemoglobin 30 pg (25-35) Mean Corpuscular Hemoglobin Concent 33 g/dL (31-37) Red Cell Distribution Width 14.6 % (11.5-14.5) Platelet Count 181 x10^3/uL (140-400) Neutrophils (%) (Auto) 58 % (31-73) Lymphocytes (%) (Auto) 32 % (24-48) Monocytes (%) (Auto) 7 % (0-9) Eosinophils (%) (Auto) 3 % (0-3) Basophils (%) (Auto) 1 % (0-3) Neutrophils # (Auto) 6.1 x10^3/uL (1.8-7.7) Lymphocytes # (Auto) 3.4 x10^3/uL (1.0-4.8) Monocytes # (Auto) 0.7 x10^3/uL (0.0-1.1) Eosinophils # (Auto) 0.3 x10^3/uL (0.0-0.7) Basophils # (Auto) 0.1 x10^3/uL (0.0-0.2) Sodium Level 143 mmol/L (136-145) Potassium Level 3.8 mmol/L (3.5-5.1) Chloride Level 104 mmol/L (98-107) Carbon Dioxide Level 28 mmol/L (21-32) Anion Gap 11 (6-14) 14 mmol/L (6-14) Blood Urea Nitrogen 16 mg/dL (7-20) Creatinine 1.6 mg/dL (0.6-1.0) Estimated GFR (Cockcroft-Gault) 37.9 BUN/Creatinine Ratio 10 (6-20) Glucose Level 156 mg/dL (70-99) 152 mg/dL (70-99) Calcium Level 9.9 mg/dL (8.5-10.1) Magnesium Level 2.0 mg/dL (1.8-2.4) Total Bilirubin 0.6 mg/dL (0.2-1.0) Aspartate Amino Transf (AST/SGOT) 23 U/L (15-37) Alanine Aminotransferase (ALT/SGPT) 22 U/L (14-59) Alkaline Phosphatase 93 U/L (46-116) Troponin I Quantitative 0.061 ng/mL (0.000-0.055) 0.074 ng/mL (0.000-0.055) VT-Dke-I-Type Natriuretic Peptide 972 pg/mL (0-449) Total Protein 7.0 g/dL (6.4-8.2) Albumin 3.2 g/dL (3.4-5.0) Albumin/Globulin Ratio 0.8 (1.0-1.7) Lipase 92 U/L (73-393) Bedside Hemoglobin 17.0 g/dL (12-15) Bedside Hematocrit 50 % (36-40) Bedside Sodium 142 mmol/L (135-145) Bedside Potassium 3.8 mmol/L (3.5-5.0) Bedside Chloride 105 mmol/L (98-110) Bedside Total CO2 28 mmol/L (23-32) Bedside Blood Urea Nitrogen 19 mg/dL (8-26) Bedside Creatinine 1.5 mg/dL (0.5-1.4) Bedside Ionized Calcium (Claudia) 1.20 mmol/L (1.13-1.32) Urine Color Yellow Urine Clarity Clear Urine pH 8.5 Urine Specific [place] 1.010 Urine Protein Negative mg/dL (NEG-TRACE) Urine Glucose (UA) Negative mg/dL (NEG) Urine Ketones (Stick) Negative mg/dL (NEG) Urine Blood Negative (NEG) Urine Nitrite Negative (NEG) Urine Bilirubin Negative (NEG) Urine Urobilinogen Dipstick 0.2 mg/dL (0.2 mg/dL) Urine Leukocyte Esterase Trace (NEG) Urine RBC 0 /HPF (0-2) Urine WBC 11-20 /HPF (0-4) Urine Squamous Epithelial Cells Mod /LPF Urine Transitional Epithelial Cells Few /LPF Urine Bacteria 0 /HPF (0-FEW) Urine Hyaline Casts Many /HPF Urine Mucus Mod /LPF Test 02/16/19 21:30 02/17/19 04:30 Heparin Anti-Xa Act, Unfractionated 0.69 IU/mL (0.30-0.70) 0.45 IU/mL (0.30-0.70) Troponin I Quantitative 0.089 ng/mL (0.000-0.055) White Blood Count 9.4 x10^3/uL (4.0-11.0) Red Blood Count 4.65 x10^6/uL (3.50-5.40) Hemoglobin 13.7 g/dL (12.0-15.5) Hematocrit 42.1 % (36.0-47.0) Mean Corpuscular Volume 91 fL (79-100) Mean Corpuscular Hemoglobin 29 pg (25-35) Mean Corpuscular Hemoglobin Concent 33 g/dL (31-37) Red Cell Distribution Width 14.7 % (11.5-14.5) Platelet Count 152 x10^3/uL (140-400) Review of Systems Review of Systems positive per my HPI< the rest 14 pt neg Assessment and Plan Assessmemt and Plan Problems Medical Problems: (1) Acute kidney injury Status: Acute (2) Atypical chest pain Status: Acute (3) Elevated troponin I level Status: Acute (4) Syncope Status: Acute Comment Review of Relevant I have reviewed the following items tigre (where applicable) has been applied. Labs Laboratory Tests Test 02/16/19 13:20 02/16/19 13:29 02/16/19 17:10 02/16/19 19:45 White Blood Count 10.6 x10^3/uL (4.0-11.0) Red Blood Count 5.34 x10^6/uL (3.50-5.40) Hemoglobin 15.9 g/dL (12.0-15.5) Hematocrit 48.0 % (36.0-47.0) Mean Corpuscular Volume 90 fL (79-100) Mean Corpuscular Hemoglobin 30 pg (25-35) Mean Corpuscular Hemoglobin Concent 33 g/dL (31-37) Red Cell Distribution Width 14.6 % (11.5-14.5) Platelet Count 181 x10^3/uL (140-400) Neutrophils (%) (Auto) 58 % (31-73) Lymphocytes (%) (Auto) 32 % (24-48) Monocytes (%) (Auto) 7 % (0-9) Eosinophils (%) (Auto) 3 % (0-3) Basophils (%) (Auto) 1 % (0-3) Neutrophils # (Auto) 6.1 x10^3/uL (1.8-7.7) Lymphocytes # (Auto) 3.4 x10^3/uL (1.0-4.8) Monocytes # (Auto) 0.7 x10^3/uL (0.0-1.1) Eosinophils # (Auto) 0.3 x10^3/uL (0.0-0.7) Basophils # (Auto) 0.1 x10^3/uL (0.0-0.2) Sodium Level 143 mmol/L (136-145) Potassium Level 3.8 mmol/L (3.5-5.1) Chloride Level 104 mmol/L (98-107) Carbon Dioxide Level 28 mmol/L (21-32) Anion Gap 11 (6-14) 14 mmol/L (6-14) Blood Urea Nitrogen 16 mg/dL (7-20) Creatinine 1.6 mg/dL (0.6-1.0) Estimated GFR (Cockcroft-Gault) 37.9 BUN/Creatinine Ratio 10 (6-20) Glucose Level 156 mg/dL (70-99) 152 mg/dL (70-99) Calcium Level 9.9 mg/dL (8.5-10.1) Magnesium Level 2.0 mg/dL (1.8-2.4) Total Bilirubin 0.6 mg/dL (0.2-1.0) Aspartate Amino Transf (AST/SGOT) 23 U/L (15-37) Alanine Aminotransferase (ALT/SGPT) 22 U/L (14-59) Alkaline Phosphatase 93 U/L (46-116) Troponin I Quantitative 0.061 ng/mL (0.000-0.055) 0.074 ng/mL (0.000-0.055) JS-Aal-G-Type Natriuretic Peptide 972 pg/mL (0-449) Total Protein 7.0 g/dL (6.4-8.2) Albumin 3.2 g/dL (3.4-5.0) Albumin/Globulin Ratio 0.8 (1.0-1.7) Lipase 92 U/L (73-393) Bedside Hemoglobin 17.0 g/dL (12-15) Bedside Hematocrit 50 % (36-40) Bedside Sodium 142 mmol/L (135-145) Bedside Potassium 3.8 mmol/L (3.5-5.0) Bedside Chloride 105 mmol/L (98-110) Bedside Total CO2 28 mmol/L (23-32) Bedside Blood Urea Nitrogen 19 mg/dL (8-26) Bedside Creatinine 1.5 mg/dL (0.5-1.4) Bedside Ionized Calcium (Claudia) 1.20 mmol/L (1.13-1.32) Urine Color Yellow Urine Clarity Clear Urine pH 8.5 Urine Specific [place] 1.010 Urine Protein Negative mg/dL (NEG-TRACE) Urine Glucose (UA) Negative mg/dL (NEG) Urine Ketones (Stick) Negative mg/dL (NEG) Urine Blood Negative (NEG) Urine Nitrite Negative (NEG) Urine Bilirubin Negative (NEG) Urine Urobilinogen Dipstick 0.2 mg/dL (0.2 mg/dL) Urine Leukocyte Esterase Trace (NEG) Urine RBC 0 /HPF (0-2) Urine WBC 11-20 /HPF (0-4) Urine Squamous Epithelial Cells Mod /LPF Urine Transitional Epithelial Cells Few /LPF Urine Bacteria 0 /HPF (0-FEW) Urine Hyaline Casts Many /HPF Urine Mucus Mod /LPF Test 02/16/19 21:30 02/17/19 04:30 Heparin Anti-Xa Act, Unfractionated 0.69 IU/mL (0.30-0.70) 0.45 IU/mL (0.30-0.70) Troponin I Quantitative 0.089 ng/mL (0.000-0.055) White Blood Count 9.4 x10^3/uL (4.0-11.0) Red Blood Count 4.65 x10^6/uL (3.50-5.40) Hemoglobin 13.7 g/dL (12.0-15.5) Hematocrit 42.1 % (36.0-47.0) Mean Corpuscular Volume 91 fL (79-100) Mean Corpuscular Hemoglobin 29 pg (25-35) Mean Corpuscular Hemoglobin Concent 33 g/dL (31-37) Red Cell Distribution Width 14.7 % (11.5-14.5) Platelet Count 152 x10^3/uL (140-400) Laboratory Tests Test 02/16/19 13:20 02/16/19 13:29 02/16/19 17:10 02/16/19 19:45 White Blood Count 10.6 x10^3/uL (4.0-11.0) Red Blood Count 5.34 x10^6/uL (3.50-5.40) Hemoglobin 15.9 g/dL (12.0-15.5) Hematocrit 48.0 % (36.0-47.0) Mean Corpuscular Volume 90 fL (79-100) Mean Corpuscular Hemoglobin 30 pg (25-35) Mean Corpuscular Hemoglobin Concent 33 g/dL (31-37) Red Cell Distribution Width 14.6 % (11.5-14.5) Platelet Count 181 x10^3/uL (140-400) Neutrophils (%) (Auto) 58 % (31-73) Lymphocytes (%) (Auto) 32 % (24-48) Monocytes (%) (Auto) 7 % (0-9) Eosinophils (%) (Auto) 3 % (0-3) Basophils (%) (Auto) 1 % (0-3) Neutrophils # (Auto) 6.1 x10^3/uL (1.8-7.7) Lymphocytes # (Auto) 3.4 x10^3/uL (1.0-4.8) Monocytes # (Auto) 0.7 x10^3/uL (0.0-1.1) Eosinophils # (Auto) 0.3 x10^3/uL (0.0-0.7) Basophils # (Auto) 0.1 x10^3/uL (0.0-0.2) Sodium Level 143 mmol/L (136-145) Potassium Level 3.8 mmol/L (3.5-5.1) Chloride Level 104 mmol/L (98-107) Carbon Dioxide Level 28 mmol/L (21-32) Anion Gap 11 (6-14) 14 mmol/L (6-14) Blood Urea Nitrogen 16 mg/dL (7-20) Creatinine 1.6 mg/dL (0.6-1.0) Estimated GFR (Cockcroft-Gault) 37.9 BUN/Creatinine Ratio 10 (6-20) Glucose Level 156 mg/dL (70-99) 152 mg/dL (70-99) Calcium Level 9.9 mg/dL (8.5-10.1) Magnesium Level 2.0 mg/dL (1.8-2.4) Total Bilirubin 0.6 mg/dL (0.2-1.0) Aspartate Amino Transf (AST/SGOT) 23 U/L (15-37) Alanine Aminotransferase (ALT/SGPT) 22 U/L (14-59) Alkaline Phosphatase 93 U/L (46-116) Troponin I Quantitative 0.061 ng/mL (0.000-0.055) 0.074 ng/mL (0.000-0.055) ST-Wus-N-Type Natriuretic Peptide 972 pg/mL (0-449) Total Protein 7.0 g/dL (6.4-8.2) Albumin 3.2 g/dL (3.4-5.0) Albumin/Globulin Ratio 0.8 (1.0-1.7) Lipase 92 U/L (73-393) Bedside Hemoglobin 17.0 g/dL (12-15) Bedside Hematocrit 50 % (36-40) Bedside Sodium 142 mmol/L (135-145) Bedside Potassium 3.8 mmol/L (3.5-5.0) Bedside Chloride 105 mmol/L (98-110) Bedside Total CO2 28 mmol/L (23-32) Bedside Blood Urea Nitrogen 19 mg/dL (8-26) Bedside Creatinine 1.5 mg/dL (0.5-1.4) Bedside Ionized Calcium (Claudia) 1.20 mmol/L (1.13-1.32) Urine Color Yellow Urine Clarity Clear Urine pH 8.5 Urine Specific [place] 1.010 Urine Protein Negative mg/dL (NEG-TRACE) Urine Glucose (UA) Negative mg/dL (NEG) Urine Ketones (Stick) Negative mg/dL (NEG) Urine Blood Negative (NEG) Urine Nitrite Negative (NEG) Urine Bilirubin Negative (NEG) Urine Urobilinogen Dipstick 0.2 mg/dL (0.2 mg/dL) Urine Leukocyte Esterase Trace (NEG) Urine RBC 0 /HPF (0-2) Urine WBC 11-20 /HPF (0-4) Urine Squamous Epithelial Cells Mod /LPF Urine Transitional Epithelial Cells Few /LPF Urine Bacteria 0 /HPF (0-FEW) Urine Hyaline Casts Many /HPF Urine Mucus Mod /LPF Test 02/16/19 21:30 02/17/19 04:30 Heparin Anti-Xa Act, Unfractionated 0.69 IU/mL (0.30-0.70) 0.45 IU/mL (0.30-0.70) Troponin I Quantitative 0.089 ng/mL (0.000-0.055) White Blood Count 9.4 x10^3/uL (4.0-11.0) Red Blood Count 4.65 x10^6/uL (3.50-5.40) Hemoglobin 13.7 g/dL (12.0-15.5) Hematocrit 42.1 % (36.0-47.0) Mean Corpuscular Volume 91 fL (79-100) Mean Corpuscular Hemoglobin 29 pg (25-35) Mean Corpuscular Hemoglobin Concent 33 g/dL (31-37) Red Cell Distribution Width 14.7 % (11.5-14.5) Platelet Count 152 x10^3/uL (140-400) Medications Current Medications Morphine Sulfate (Morphine Sulfate) 4 mg PRN Q15MIN PRN IV/SQ PAIN GREATER THAN 3/10 Last administered on 02/16/19at 15:05; Start 02/16/19 at 13:30; Stop 02/17/19 at 07:10; Status DC Sodium Chloride 1,000 ml @ 125 mls/hr 1X ONCE IV Last administered on 02/16/19at 13:54; Start 02/16/19 at 14:00; Stop 02/16/19 at 21:59; Status DC Heparin Sodium (Porcine) (Heparin Sodium) 4,000 unit 1X ONCE IV Last administered on 02/16/19at 15:11; Start 02/16/19 at 15:15; Stop 02/16/19 at 15:16; Status DC Heparin Sodium/ Dextrose 500 ml @ 0 mls/hr CONT PRN IV PER PROTOCOL Last administered on 02/16/19at 15:16; Start 02/16/19 at 15:30 Heparin Sodium (Porcine) (Heparin Sodium) 1,950 unit PRN Q6HRS PRN IV FOR UFH LEVEL LESS THAN 0.2; Start 02/16/19 at 15:30 Ondansetron HCl (Zofran) 4 mg PRN Q8HRS PRN IV NAUSEA/VOMITING; Start 02/16/19 at 15:45; Stop 02/17/19 at 08:40; Status DC Morphine Sulfate (Morphine Sulfate) 4 mg PRN Q2HR PRN IV PAIN Last administered on 02/16/19 20:41; Start 02/16/19 at 15:45; Stop 02/17/19 at 15:44 Sodium Chloride 1,000 ml @ 125 mls/hr Q8H IV Last administered on 02/17/19 06:52; Start 02/16/19 at 15:31; Stop 02/17/19 at 15:30 Ceftriaxone Sodium (Rocephin) 1 gm Q24H IVP Last administered on 02/16/19 20:37; Start 02/16/19 at 20:00 Amlodipine Besylate (Norvasc) 5 mg DAILY PO Last administered on 02/17/19 09:29; Start 02/17/19 at 09:00 Aspirin (Ecotrin) 81 mg DAILY PO Last administered on 02/17/19 09:29; Start 02/17/19 at 09:00 Vitamin D (Vitamin D3) 6,000 unit DAILY PO Last administered on 02/17/19 09:28; Start 02/17/19 at 09:00 Acetaminophen/ Hydrocodone Bitart (Lortab 5/325) 1 tab PRN Q6HRS PRN PO MODERATE PAIN, SEVERE PAIN Last administered on 02/17/19 09:30; Start 02/16/19 at 19:30 Levothyroxine Sodium (Synthroid) 100 mcg DAILY07 PO Last administered on 02/17/19 06:52; Start 02/17/19 at 07:00 Multivitamins (Thera M Plus) 1 tab DAILY PO Last administered on 02/17/19 09:27; Start 02/17/19 at 09:00 Non-Formulary Medication (Vit A & D3 In Cod Liver Oil (Cod Liver Oil Softgel)) 1 each DAILY PO ; Start 02/17/19 at 09:00; Status UNV Diphenhydramine HCl (Benadryl) 25 mg PRN QHS PRN PO INSOMNIA; Start 02/16/19 at 21:15 Pantoprazole Sodium (Protonix) 40 mg DAILYAC PO Last administered on 11/24/19at 09:29; Start 02/17/19 at 07:30 Albuterol/ Ipratropium (Duoneb) 3 ml RTQID NEB Last administered on 02/17/19at 07:36; Start 02/17/19 at 08:00 Ondansetron HCl (Zofran) 4 mg PRN Q6HRS PRN IV NAUSEA/VOMITING; Start 02/17/19 at 08:45 Benzonatate (Tessalon Perle) 100 mg CDP546 PO ; Start 02/17/19 at 09:00 Guaifenesin (Robitussin Dm) 10 ml PRN Q6HRS PRN PO COUGH; Start 02/17/19 at 08:45 Tramadol HCl (Ultram) 50 mg PRN Q6HRS PRN PO MILD PAIN 1-3; Start 02/17/19 at 08:45 Calcium Carbonate/ Glycine (Tums) 500 mg PRN AFTMEALHC PRN PO INDIGESTION; Start 02/17/19 at 08:45 Temazepam (Restoril) 7.5 mg PRN QHS PRN PO INSOMNIA; Start 02/17/19 at 08:45 Active Scripts Active Reported Cod Liver Oil Softgel (Vit A & D3 In Cod Liver Oil) 1 Each Capsule 1 Each PO DAILY Women's 50 Plus Multivit Tab (Mv-Mn/Folic Acid/Calcium/Vit K) 1 Each Tablet 2 Each PO DAILY Vitamin D3 (Cholecalciferol (Vitamin D3)) 1,000 Unit Tablet 6,000 Unit PO DAILY Amlodipine Besylate 5 Mg Tablet 5 Mg PO DAILY Hydrocodone-Apap 5-325 (Hydrocodone Bit/Acetaminophen) 1 Each Tablet 1 Tab PO PRN Q6HRS PRN Aspir 81 (Aspirin) 81 Mg Tablet. 1 Tab PO DAILY Levothyroxine Sodium 100 Mcg Tablet 100 Mcg PO DAILY Vitals/I & O Vital Sign - Last 24 Hours 02/16/19 02/16/19 02/16/19 02/16/19 13:21 13:39 13:43 14:00 Temp 98.6 98.6 Pulse 65 60 58 Resp 17 17 18 B/P (MAP) 177/77 (110) 138/64 (88) 156/84 (108) Pulse Ox 99 100 100 O2 Delivery Room Air Room Air Nasal Cannula O2 Flow Rate 1.0 11/2302/16/19 02/16/19 02/16/19 14:30 15:00 15:30 16:00 Pulse 60 66 62 66 Resp 18 18 18 18 B/P (MAP) 116/85 (95) 158/63 (94) 173/83 (113) 133/67 (89) Pulse Ox 100 100 100 100 O2 Delivery Nasal Cannula Nasal Cannula Room Air Nasal Cannula O2 Flow Rate 1.0 1.0 1.0 1.0 02/16/19 02/16/19 02/16/19 02/16/19 16:30 17:00 18:29 20:41 Temp 98.7 98.6 98.7 98.6 Pulse 76 60 79 Resp 18 18 18 22 B/P (MAP) 137/76 (96) 151/76 (101) 160/78 (105) Pulse Ox 99 99 98 98 O2 Delivery Room Air Room Air Room Air Room Air O2 Flow Rate 1.0 02/16/19 02/16/19 02/17/19 02/17/19 21:11 23:00 03:40 07:30 Temp 98.4 98.4 98.1 98.4 98.4 98.1 Pulse 60 62 72 Resp 18 18 18 14 B/P (MAP) 149/66 (93) 135/63 (87) 129/59 (82) Pulse Ox 98 98 99 95 O2 Delivery Room Air Room Air Room Air Room Air 02/17/19 02/17/19 02/17/19 07:39 09:29 09:30 Pulse 72 B/P (MAP) 129/59 Pulse Ox 99 O2 Delivery Room Air Room Air Intake and Output 02/16/19 02/16/19 02/17/19 15:00 23:00 07:00 Intake Total 1350 ml 1698 ml Output Total 600 ml Balance 1350 ml 1098 ml TAWANNA WASHINGTON MD Feb 17, 2019 10:30
[2019-02-17] MEDS ORDERED: CEPH500C PO (10:36)
--- NOTE | 2019-02-17 11:40 | NUR ---
Patient called out using call light to advised that she was experiencing chest and abdominal pain 10/10. This RN applied O2 at 2lNC, 4mg of MS04 and pgd sales program coordinator who arrived to room to assess patient. Patients B/P was slightly elevated at time of beside assessment. Process Laboratory Specialist ordered sublingual nitro and advise to continue heparin gtt per protocol. Will continue to monitor.
[2019-02-17] MEDS: MORPHINE SULFATE 4 MG/ML VIAL. IV PRN (11:43)
[2019-02-17] MEDS ORDERED: NITROGLYCERIN SUBLINGUAL 0.4 MG BOTTLE OF 25. SL PRN (12:00)
--- NOTE | 2019-02-17 13:40 | CONS ---
DATE OF CONSULTATION: 02/17/2019 REASON FOR CONSULTATION: Chest pain. HISTORY OF PRESENT ILLNESS: The patient is a pleasant 78-year-old woman who was actually seen in 10/2018 for classic unstable anginal features and elevated troponin, and she was taken to the catheterization laboratory at that time and was found to have patent coronary arteries with a prior RCA stent that was also patent. She was then discharged with blood pressure management as she was noted to have blood pressures of 230/90 and was doing fairly well over the last 4-6 weeks and actually was seen in the office 2 days ago where she did not have any complaints. Her blood pressure in the office was fairly well controlled and she had denied any exertional symptoms such as chest pain, dyspnea, orthopnea or PND. She was apparently in her usual state of health yesterday at home and her daughter reported a syncopal episode where she was nonresponsive. Per the patient's recollection, she thinks she might have been hypotensive when EMS had arrived. Upon arrival to the ER here, she underwent extensive evaluation including a CT of the chest, abdomen and pelvis due to some pain that she had reported that was radiating to her back from her chest and this did not reveal any significant evidence of dissection, intra-abdominal process, but she did have lumbar degenerative disease noted. After admission to the hospital, she was noted to be initially to be hypertensive with systolic blood pressure in the 170s, but then over the last 12 hours, she has been fairly normotensive. This morning, she had complained of worsening epigastric discomfort with difficulty with inspiration and some radiation to her lateral breast area. She is in fairly significant distress from this pain. PAST MEDICAL HISTORY: 1. Coronary artery disease, status post PCI in 2016 to the RCA. 2. Hypertension. 3. Dyslipidemia. 4. Gastroesophageal reflux disease. 5. Peptic ulcer disease. 6. Appendectomy and back surgery. FAMILY HISTORY: Noncontributory. SOCIAL HISTORY: She used to be a remote smoker. Quit several years ago. No alcohol, tobacco or illicit drug use. CURRENT CARDIOVASCULAR MEDICATIONS: Aspirin 81 mg daily, amlodipine 5 mg daily. PHYSICAL EXAMINATION: GENERAL: She is alert and oriented, but is in mild to moderate distress related to her pain. VITAL SIGNS: Stable with a recent blood pressure of 194/76. HEAD AND NECK: Unremarkable. CARDIAC: Regular rate and rhythm without any murmurs, rubs or gallops. LUNGS: Clear to auscultation. ABDOMEN: Soft, nontender, nondistended. EXTREMITIES: No obvious edema and 2+ radial and dorsalis pedis pulses. NEUROLOGIC: No focal deficits. MUSCULOSKELETAL: No trauma. DIAGNOSTIC STUDIES: Hemoglobin and platelets are within normal limits. Creatinine is minimally elevated at 1.6 up from her baseline of 1.1. Troponin is currently peaked at 0.089 with a BNP of 972. EKG demonstrates sinus rhythm with diffuse anterior T-wave inversion suggestive of microvascular ischemia/left ventricular strain from high blood pressure. Cardiac catheterization performed in 10/2018 reveals normal left-sided filling pressures with a patent RCA stent and no obvious other angiographic disease noted. Echocardiogram performed in October revealed normal LV function without any valvular disease. IMPRESSION: 1. Epigastric and abdominal pain as well as lateral chest pain: Etiology is unclear. Although a myocardial infarction is always a possibility, I suspect there is likely underlying microvascular angina if this was truly a cardiac process. No obvious evidence of dissection noted. No obvious intra-abdominal pathology noted. This could be esophageal spasm, coronary spasm or severe peptic ulcer disease given the lack of any preceding cardiac symptoms. 2. Syncope of unclear etiology, may be related to hypertensive encephalopathy which she actually had her last presentation. RECOMMENDATIONS: I had a last conversation with the patient that the etiology of her pain is currently unknown. Given her recent negative echocardiogram, cardiac catheterization within the last 6 weeks that did not reveal any significant pathology with no significant changes to her EKG this is likely microvascular disease. We will plan for controlling blood pressure and initiation of antianginals and determine further progress. Thank you for this consultation. addendum: Notified of subdural hematoma. Ok to stop heparin. Discussed with nurse. ELLI MCDANIEL MD DR: ISRA/baldomero JOB#: [id number] / [id number] VICKI
--- NOTE | 2019-02-17 14:09 | PDOC2 ---
CONSULT Date of Consult Date of Consult DATE: 02/17/19 TIME: 14:07 Reason for Consult Reason for Consult: abd pain/mental status change Past Medical History Cardiovascular: CAD, HTN, OR, Hyperlipidemia Pulmonary: Asthma CENTRAL NERVOUS SYSTEM: Other GI: GERD, Peptic Ulcer disease Heme/Onc: No pertinent hx Hepatobiliary: No pertinent hx Psych: No pertinent hx Musculoskeletal: Osteoarthritis Rheumatologic: No pertinent hx Infectious disease: No pertinent hx Renal/: No pertinent hx Endocrine: Hypothyroidism Past Surgical History Past Surgical History: Appendectomy, Other Family History Family History: Coronary Artery Disease Social History ALCOHOL: none Drugs: None Lives: Alone Domestic Violence: Neg Current Problem List Problem List Problems Medical Problems: (1) Acute kidney injury Status: Acute (2) Atypical chest pain Status: Acute (3) Elevated troponin I level Status: Acute (4) Syncope Status: Acute Current Medications Current Medications Current Medications Morphine Sulfate (Morphine Sulfate) 4 mg PRN Q15MIN PRN IV/SQ PAIN GREATER THAN 3/10 Last administered on 02/16/19at 15:05; Start 02/16/19 at 13:30; Stop 02/17/19 at 07:10; Status DC Sodium Chloride 1,000 ml @ 125 mls/hr 1X ONCE IV Last administered on 02/16/19at 13:54; Start 02/16/19 at 14:00; Stop 02/16/19 at 21:59; Status DC Heparin Sodium (Porcine) (Heparin Sodium) 4,000 unit 1X ONCE IV Last administered on 02/16/19at 15:11; Start 02/16/19 at 15:15; Stop 02/16/19 at 15:16; Status DC Heparin Sodium/ Dextrose 500 ml @ 0 mls/hr CONT PRN IV PER PROTOCOL Last administered on 02/16/19at 15:16; Start 02/16/19 at 15:30 Heparin Sodium (Porcine) (Heparin Sodium) 1,950 unit PRN Q6HRS PRN IV FOR UFH LEVEL LESS THAN 0.2; Start 02/16/19 at 15:30 Ondansetron HCl (Zofran) 4 mg PRN Q8HRS PRN IV NAUSEA/VOMITING; Start 02/16/19 at 15:45; Stop 02/17/19 at 08:40; Status DC Morphine Sulfate (Morphine Sulfate) 4 mg PRN Q2HR PRN IV PAIN Last administered on 02/17/19 11:43; Start 02/16/19 at 15:45; Stop 02/17/19 at 15:44 Sodium Chloride 1,000 ml @ 125 mls/hr Q8H IV Last administered on 02/17/19 06:52; Start 02/16/19 at 15:31; Stop 02/17/19 at 15:30 Ceftriaxone Sodium (Rocephin) 1 gm Q24H IVP Last administered on 02/16/19 20:37; Start 02/16/19 at 20:00 Amlodipine Besylate (Norvasc) 5 mg DAILY PO Last administered on 02/17/19 09:29; Start 02/17/19 at 09:00 Aspirin (Ecotrin) 81 mg DAILY PO Last administered on 02/17/19 09:29; Start 02/17/19 at 09:00 Vitamin D (Vitamin D3) 6,000 unit DAILY PO Last administered on 02/17/19 09:28; Start 02/17/19 at 09:00 Acetaminophen/ Hydrocodone Bitart (Lortab 5/325) 1 tab PRN Q6HRS PRN PO MODERATE PAIN, SEVERE PAIN Last administered on 02/17/19 09:30; Start 02/16/19 at 19:30 Levothyroxine Sodium (Synthroid) 100 mcg DAILY07 PO Last administered on 02/17/19 06:52; Start 02/17/19 at 07:00 Multivitamins (Thera M Plus) 1 tab DAILY PO Last administered on 02/17/19 09:27; Start 02/17/19 at 09:00 Non-Formulary Medication (Vit A & D3 In Cod Liver Oil (Cod Liver Oil Softgel)) 1 each DAILY PO ; Start 02/17/19 at 09:00; Status UNV Diphenhydramine HCl (Benadryl) 25 mg PRN QHS PRN PO INSOMNIA; Start 02/16/19 at 21:15 Pantoprazole Sodium (Protonix) 40 mg DAILYAC PO Last administered on 02/17/19 09:29; Start 02/17/19 at 07:30 Albuterol/ Ipratropium (Duoneb) 3 ml RTQID NEB Last administered on 02/17/19 07:36; Start 02/17/19 at 08:00 Ondansetron HCl (Zofran) 4 mg PRN Q6HRS PRN IV NAUSEA/VOMITING; Start 02/17/19 at 08:45 Benzonatate (Tessalon Perle) 100 mg FON294 PO ; Start 02/17/19 at 09:00 Guaifenesin (Robitussin Dm) 10 ml PRN Q6HRS PRN PO COUGH; Start 02/17/19 at 08:45 Tramadol HCl (Ultram) 50 mg PRN Q6HRS PRN PO MILD PAIN 1-3; Start 02/17/19 at 08:45 Calcium Carbonate/ Glycine (Tums) 500 mg PRN AFTMEALHC PRN PO INDIGESTION Last administered on 02/17/19at 11:56; Start 02/17/19 at 08:45 Temazepam (Restoril) 7.5 mg PRN QHS PRN PO INSOMNIA; Start 02/17/19 at 08:45 Nitroglycerin (Nitrostat) 0.4 mg PRN Q5MIN PRN SL CHEST PAIN Last administered on 02/17/19at 11:58; Start 02/17/19 at 12:00 Lactobacillus Rhamnosus (Culturelle) 1 cap BID PO ; Start 02/17/19 at 21:00 Active Scripts Active Reported Cephalexin 500 Mg Capsule 500 Mg PO Q8HRS PRN Cod Liver Oil Softgel (Vit A & D3 In Cod Liver Oil) 1 Each Capsule 1 Each PO DAILY Women's 50 Plus Multivit Tab (Mv-Mn/Folic Acid/Calcium/Vit K) 1 Each Tablet 2 Each PO DAILY Vitamin D3 (Cholecalciferol (Vitamin D3)) 1,000 Unit Tablet 6,000 Unit PO DAILY Amlodipine Besylate 5 Mg Tablet 5 Mg PO DAILY Hydrocodone-Apap 5-325 (Hydrocodone Bit/Acetaminophen) 1 Each Tablet 1 Tab PO PRN Q6HRS PRN Aspir 81 (Aspirin) 81 Mg Tablet. 1 Tab PO DAILY Levothyroxine Sodium 100 Mcg Tablet 100 Mcg PO DAILY Allergies Allergies: Coded Allergies: codeine (Verified Allergy, Intermediate, 08/08/13) PER PATIENT "DROPS BLOOD PRESSURE" egg (Verified Allergy, Intermediate, 11/20/18) Vitals VITALS Vital Signs Date Time Temp Pulse Resp B/P (MAP) Pulse Ox O2 Delivery O2 Flow Rate FiO2 02/17/19 11:58 56 155/63 02/17/19 11:43 Nasal Cannula 2.0 02/17/19 11:09 98.4 16 94 98.4 Labs Labs Laboratory Tests Test 02/16/19 13:20 02/16/19 13:29 02/16/19 17:10 02/16/19 19:45 White Blood Count 10.6 x10^3/uL (4.0-11.0) Red Blood Count 5.34 x10^6/uL (3.50-5.40) Hemoglobin 15.9 g/dL (12.0-15.5) Hematocrit 48.0 % (36.0-47.0) Mean Corpuscular Volume 90 fL (79-100) Mean Corpuscular Hemoglobin 30 pg (25-35) Mean Corpuscular Hemoglobin Concent 33 g/dL (31-37) Red Cell Distribution Width 14.6 % (11.5-14.5) Platelet Count 181 x10^3/uL (140-400) Neutrophils (%) (Auto) 58 % (31-73) Lymphocytes (%) (Auto) 32 % (24-48) Monocytes (%) (Auto) 7 % (0-9) Eosinophils (%) (Auto) 3 % (0-3) Basophils (%) (Auto) 1 % (0-3) Neutrophils # (Auto) 6.1 x10^3/uL (1.8-7.7) Lymphocytes # (Auto) 3.4 x10^3/uL (1.0-4.8) Monocytes # (Auto) 0.7 x10^3/uL (0.0-1.1) Eosinophils # (Auto) 0.3 x10^3/uL (0.0-0.7) Basophils # (Auto) 0.1 x10^3/uL (0.0-0.2) Sodium Level 143 mmol/L (136-145) Potassium Level 3.8 mmol/L (3.5-5.1) Chloride Level 104 mmol/L (98-107) Carbon Dioxide Level 28 mmol/L (21-32) Anion Gap 11 (6-14) 14 mmol/L (6-14) Blood Urea Nitrogen 16 mg/dL (7-20) Creatinine 1.6 mg/dL (0.6-1.0) Estimated GFR (Cockcroft-Gault) 37.9 BUN/Creatinine Ratio 10 (6-20) Glucose Level 156 mg/dL (70-99) 152 mg/dL (70-99) Calcium Level 9.9 mg/dL (8.5-10.1) Magnesium Level 2.0 mg/dL (1.8-2.4) Total Bilirubin 0.6 mg/dL (0.2-1.0) Aspartate Amino Transf (AST/SGOT) 23 U/L (15-37) Alanine Aminotransferase (ALT/SGPT) 22 U/L (14-59) Alkaline Phosphatase 93 U/L (46-116) Troponin I Quantitative 0.061 ng/mL (0.000-0.055) 0.074 ng/mL (0.000-0.055) EQ-Wvy-H-Type Natriuretic Peptide 972 pg/mL (0-449) Total Protein 7.0 g/dL (6.4-8.2) Albumin 3.2 g/dL (3.4-5.0) Albumin/Globulin Ratio 0.8 (1.0-1.7) Lipase 92 U/L (73-393) Bedside Hemoglobin 17.0 g/dL (12-15) Bedside Hematocrit 50 % (36-40) Bedside Sodium 142 mmol/L (135-145) Bedside Potassium 3.8 mmol/L (3.5-5.0) Bedside Chloride 105 mmol/L (98-110) Bedside Total CO2 28 mmol/L (23-32) Bedside Blood Urea Nitrogen 19 mg/dL (8-26) Bedside Creatinine 1.5 mg/dL (0.5-1.4) Bedside Ionized Calcium (Claudia) 1.20 mmol/L (1.13-1.32) Urine Color Yellow Urine Clarity Clear Urine pH 8.5 Urine Specific [place] 1.010 Urine Protein Negative mg/dL (NEG-TRACE) Urine Glucose (UA) Negative mg/dL (NEG) Urine Ketones (Stick) Negative mg/dL (NEG) Urine Blood Negative (NEG) Urine Nitrite Negative (NEG) Urine Bilirubin Negative (NEG) Urine Urobilinogen Dipstick 0.2 mg/dL (0.2 mg/dL) Urine Leukocyte Esterase Trace (NEG) Urine RBC 0 /HPF (0-2) Urine WBC 11-20 /HPF (0-4) Urine Squamous Epithelial Cells Mod /LPF Urine Transitional Epithelial Cells Few /LPF Urine Bacteria 0 /HPF (0-FEW) Urine Hyaline Casts Many /HPF Urine Mucus Mod /LPF Test 02/16/19 21:30 02/17/19 04:30 02/17/19 10:30 Heparin Anti-Xa Act, Unfractionated 0.69 IU/mL (0.30-0.70) 0.45 IU/mL (0.30-0.70) 0.46 IU/mL (0.30-0.70) Troponin I Quantitative 0.089 ng/mL (0.000-0.055) White Blood Count 9.4 x10^3/uL (4.0-11.0) Red Blood Count 4.65 x10^6/uL (3.50-5.40) Hemoglobin 13.7 g/dL (12.0-15.5) Hematocrit 42.1 % (36.0-47.0) Mean Corpuscular Volume 91 fL (79-100) Mean Corpuscular Hemoglobin 29 pg (25-35) Mean Corpuscular Hemoglobin Concent 33 g/dL (31-37) Red Cell Distribution Width 14.7 % (11.5-14.5) Platelet Count 152 x10^3/uL (140-400) Magnesium Level 2.0 mg/dL (1.8-2.4) Laboratory Tests Test 02/16/19 17:10 02/16/19 19:45 02/16/19 21:30 02/17/19 04:30 Urine Color Yellow Urine Clarity Clear Urine pH 8.5 Urine Specific [place] 1.010 Urine Protein Negative mg/dL (NEG-TRACE) Urine Glucose (UA) Negative mg/dL (NEG) Urine Ketones (Stick) Negative mg/dL (NEG) Urine Blood Negative (NEG) Urine Nitrite Negative (NEG) Urine Bilirubin Negative (NEG) Urine Urobilinogen Dipstick 0.2 mg/dL (0.2 mg/dL) Urine Leukocyte Esterase Trace (NEG) Urine RBC 0 /HPF (0-2) Urine WBC 11-20 /HPF (0-4) Urine Squamous Epithelial Cells Mod /LPF Urine Transitional Epithelial Cells Few /LPF Urine Bacteria 0 /HPF (0-FEW) Urine Hyaline Casts Many /HPF Urine Mucus Mod /LPF Troponin I Quantitative 0.074 ng/mL (0.000-0.055) 0.089 ng/mL (0.000-0.055) Heparin Anti-Xa Act, Unfractionated 0.69 IU/mL (0.30-0.70) 0.45 IU/mL (0.30-0.70) White Blood Count 9.4 x10^3/uL (4.0-11.0) Red Blood Count 4.65 x10^6/uL (3.50-5.40) Hemoglobin 13.7 g/dL (12.0-15.5) Hematocrit 42.1 % (36.0-47.0) Mean Corpuscular Volume 91 fL (79-100) Mean Corpuscular Hemoglobin 29 pg (25-35) Mean Corpuscular Hemoglobin Concent 33 g/dL (31-37) Red Cell Distribution Width 14.7 % (11.5-14.5) Platelet Count 152 x10^3/uL (140-400) Magnesium Level 2.0 mg/dL (1.8-2.4) Test 02/17/19 10:30 Heparin Anti-Xa Act, Unfractionated 0.46 IU/mL (0.30-0.70) Assessment/Plan Assessment/Plan Abd pain- etiology to be determined. Differential includes: PUD, GB disease, partial SBo, and/or mesenteric ischemia. Plan US Gb neuro consult with possible TIA Full note dictated CITLALLI LIMA MD Feb 17, 2019 14:09
--- NOTE | 2019-02-17 15:30 | PDOC2 ---
CONSULT Date of Consult Date of Consult DATE: 02/17/19 TIME: 15:30 Reason for Consult Reason for Consult: syncope History of Present Illness Reason for Visit: This patient is 78-year-old woman information obtained from patient, patient's family member at bedside. They report patient had episode of syncope patient was not responding appropriately. Patient denied any complaint of tingling numbness on the face. Patient denies any complaint of difficulty speaking. Patient denies any complaint of focal extremity weakness. Patient has previously been evaluated for elevated troponins by cardiology patient had cardiac workup done previously Patient was complaining of some abdominal discomfort. Patient denies any complaint of headache nausea or vomiting shortness of breath dizziness. Past Medical History Cardiovascular: CAD, HTN, [place], Hyperlipidemia Pulmonary: Asthma CENTRAL NERVOUS SYSTEM: Other GI: GERD, Peptic Ulcer disease Heme/Onc: No pertinent hx Hepatobiliary: No pertinent hx Psych: No pertinent hx Musculoskeletal: Osteoarthritis Rheumatologic: No pertinent hx Infectious disease: No pertinent hx Renal/: No pertinent hx Endocrine: Hypothyroidism Past Surgical History Past Surgical History: Appendectomy, Other Family History Family History: Coronary Artery Disease Social History ALCOHOL: none Drugs: None Lives: Alone Domestic Violence: Neg Current Problem List Problem List Problems Medical Problems: (1) Acute kidney injury Status: Acute (2) Atypical chest pain Status: Acute (3) Elevated troponin I level Status: Acute (4) Syncope Status: Acute Current Medications Current Medications Current Medications Morphine Sulfate (Morphine Sulfate) 4 mg PRN Q15MIN PRN IV/SQ PAIN GREATER THAN 3/10 Last administered on 02/16/19at 15:05; Start 02/16/19 at 13:30; Stop 02/17/19 at 07:10; Status DC Sodium Chloride 1,000 ml @ 125 mls/hr 1X ONCE IV Last administered on 02/16/19at 13:54; Start 02/16/19 at 14:00; Stop 02/16/19 at 21:59; Status DC Heparin Sodium (Porcine) (Heparin Sodium) 4,000 unit 1X ONCE IV Last administered on 02/16/19at 15:11; Start 02/16/19 at 15:15; Stop 02/16/19 at 15:16; Status DC Heparin Sodium/ Dextrose 500 ml @ 0 mls/hr CONT PRN IV PER PROTOCOL Last administered on 02/16/19at 15:16; Start 02/16/19 at 15:30 Heparin Sodium (Porcine) (Heparin Sodium) 1,950 unit PRN Q6HRS PRN IV FOR UFH LEVEL LESS THAN 0.2; Start 02/16/19 at 15:30 Ondansetron HCl (Zofran) 4 mg PRN Q8HRS PRN IV NAUSEA/VOMITING; Start 02/16/19 at 15:45; Stop 02/17/19 at 08:40; Status DC Morphine Sulfate (Morphine Sulfate) 4 mg PRN Q2HR PRN IV PAIN Last administered on 02/17/19 11:43; Start 02/16/19 at 15:45; Stop 02/17/19 at 15:44 Sodium Chloride 1,000 ml @ 125 mls/hr Q8H IV Last administered on 02/17/19 06:52; Start 02/16/19 at 15:31; Stop 02/17/19 at 15:30 Ceftriaxone Sodium (Rocephin) 1 gm Q24H IVP Last administered on 02/16/19 20:37; Start 02/16/19 at 20:00 Amlodipine Besylate (Norvasc) 5 mg DAILY PO Last administered on 02/17/19 09:29; Start 02/17/19 at 09:00 Aspirin (Ecotrin) 81 mg DAILY PO Last administered on 02/17/19 09:29; Start 02/17/19 at 09:00 Vitamin D (Vitamin D3) 6,000 unit DAILY PO Last administered on 02/17/19 09:28; Start 02/17/19 at 09:00 Acetaminophen/ Hydrocodone Bitart (Lortab 5/325) 1 tab PRN Q6HRS PRN PO MODERATE PAIN, SEVERE PAIN Last administered on 02/17/19 09:30; Start 02/16/19 at 19:30 Levothyroxine Sodium (Synthroid) 100 mcg DAILY07 PO Last administered on 02/17/19 06:52; Start 02/17/19 at 07:00 Multivitamins (Thera M Plus) 1 tab DAILY PO Last administered on 02/17/19 09:27; Start 02/17/19 at 09:00 Non-Formulary Medication (Vit A & D3 In Cod Liver Oil (Cod Liver Oil Softgel)) 1 each DAILY PO ; Start 02/17/19 at 09:00; Status UNV Diphenhydramine HCl (Benadryl) 25 mg PRN QHS PRN PO INSOMNIA; Start 02/16/19 at 21:15 Pantoprazole Sodium (Protonix) 40 mg DAILYAC PO Last administered on 02/17/19at 09:29; Start 02/17/19 at 07:30 Albuterol/ Ipratropium (Duoneb) 3 ml RTQID NEB Last administered on 02/17/19at 07:36; Start 02/17/19 at 08:00 Ondansetron HCl (Zofran) 4 mg PRN Q6HRS PRN IV NAUSEA/VOMITING; Start 02/17/19 at 08:45 Benzonatate (Tessalon Perle) 100 mg [id number] PO ; Start 02/17/19 at 09:00 Guaifenesin (Robitussin Dm) 10 ml PRN Q6HRS PRN PO COUGH; Start 02/17/19 at 08:45 Tramadol HCl (Ultram) 50 mg PRN Q6HRS PRN PO MILD PAIN 1-3; Start 02/17/19 at 08:45 Calcium Carbonate/ Glycine (Tums) 500 mg PRN AFTMEALHC PRN PO INDIGESTION Last administered on 02/17/19at 11:56; Start 02/17/19 at 08:45 Temazepam (Restoril) 7.5 mg PRN QHS PRN PO INSOMNIA; Start 02/17/19 at 08:45 Nitroglycerin (Nitrostat) 0.4 mg PRN Q5MIN PRN SL CHEST PAIN Last administered on 02/17/19at 11:58; Start 02/17/19 at 12:00 Lactobacillus Rhamnosus (Culturelle) 1 cap BID PO ; Start 02/17/19 at 21:00 Active Scripts Active Reported Cephalexin 500 Mg Capsule 500 Mg PO Q8HRS PRN Cod Liver Oil Softgel (Vit A & D3 In Cod Liver Oil) 1 Each Capsule 1 Each PO DAILY Women's 50 Plus Multivit Tab (Mv-Mn/Folic Acid/Calcium/Vit K) 1 Each Tablet 2 Each PO DAILY Vitamin D3 (Cholecalciferol (Vitamin D3)) 1,000 Unit Tablet 6,000 Unit PO DAILY Amlodipine Besylate 5 Mg Tablet 5 Mg PO DAILY Hydrocodone-Apap 5-325 (Hydrocodone Bit/Acetaminophen) 1 Each Tablet 1 Tab PO PRN Q6HRS PRN Aspir 81 (Aspirin) 81 Mg Tablet. 1 Tab PO DAILY Levothyroxine Sodium 100 Mcg Tablet 100 Mcg PO DAILY Allergies Allergies: Coded Allergies: codeine (Verified Allergy, Intermediate, 08/08/13) PER PATIENT "DROPS BLOOD PRESSURE" egg (Verified Allergy, Intermediate, 11/20/18) ROS Review of System A 10-point review of systems was obtained. Other than the history of present illness the remainder of the review of systems is negative. Physical Exam Physical Exam General no acute distress. HEENT: Normocephalic and atraumatic. NECK: Supple without bruit Respiratory: Clear to auscultation bilaterally Heart: Regular rate and rhythm, S1S2 normal NEUROLOGIC: Mental status Alert oriented. Cranial nerve equally reactive pupils, and intact extraocular movements. No facial asymmetry. Palate elevates and tongue protrudes in midline. Reflexes are 1-2 with flexor plantar responses. Coordination no dysmetria Strength able to move all exts equally. Sensory exam is intact for light touch and pinprick. Gait in bed. Vitals VITALS Vital Signs Date Time Temp Pulse Resp B/P (MAP) Pulse Ox O2 Delivery O2 Flow Rate FiO2 02/17/19 14:40 98.7 64 18 177/85 (115) 100 Room Air 98.7 02/17/19 12:13 2.0 Labs Labs Laboratory Tests Test 02/16/19 13:20 02/16/19 13:29 02/16/19 17:10 02/16/19 19:45 White Blood Count 10.6 x10^3/uL (4.0-11.0) Red Blood Count 5.34 x10^6/uL (3.50-5.40) Hemoglobin 15.9 g/dL (12.0-15.5) Hematocrit 48.0 % (36.0-47.0) Mean Corpuscular Volume 90 fL (79-100) Mean Corpuscular Hemoglobin 30 pg (25-35) Mean Corpuscular Hemoglobin Concent 33 g/dL (31-37) Red Cell Distribution Width 14.6 % (11.5-14.5) Platelet Count 181 x10^3/uL (140-400) Neutrophils (%) (Auto) 58 % (31-73) Lymphocytes (%) (Auto) 32 % (24-48) Monocytes (%) (Auto) 7 % (0-9) Eosinophils (%) (Auto) 3 % (0-3) Basophils (%) (Auto) 1 % (0-3) Neutrophils # (Auto) 6.1 x10^3/uL (1.8-7.7) Lymphocytes # (Auto) 3.4 x10^3/uL (1.0-4.8) Monocytes # (Auto) 0.7 x10^3/uL (0.0-1.1) Eosinophils # (Auto) 0.3 x10^3/uL (0.0-0.7) Basophils # (Auto) 0.1 x10^3/uL (0.0-0.2) Sodium Level 143 mmol/L (136-145) Potassium Level 3.8 mmol/L (3.5-5.1) Chloride Level 104 mmol/L (98-107) Carbon Dioxide Level 28 mmol/L (21-32) Anion Gap 11 (6-14) 14 mmol/L (6-14) Blood Urea Nitrogen 16 mg/dL (7-20) Creatinine 1.6 mg/dL (0.6-1.0) Estimated GFR (Cockcroft-Gault) 37.9 BUN/Creatinine Ratio 10 (6-20) Glucose Level 156 mg/dL (70-99) 152 mg/dL (70-99) Calcium Level 9.9 mg/dL (8.5-10.1) Magnesium Level 2.0 mg/dL (1.8-2.4) Total Bilirubin 0.6 mg/dL (0.2-1.0) Aspartate Amino Transf (AST/SGOT) 23 U/L (15-37) Alanine Aminotransferase (ALT/SGPT) 22 U/L (14-59) Alkaline Phosphatase 93 U/L (46-116) Troponin I Quantitative 0.061 ng/mL (0.000-0.055) 0.074 ng/mL (0.000-0.055) HF-Rbf-M-Type Natriuretic Peptide 972 pg/mL (0-449) Total Protein 7.0 g/dL (6.4-8.2) Albumin 3.2 g/dL (3.4-5.0) Albumin/Globulin Ratio 0.8 (1.0-1.7) Lipase 92 U/L (73-393) Bedside Hemoglobin 17.0 g/dL (12-15) Bedside Hematocrit 50 % (36-40) Bedside Sodium 142 mmol/L (135-145) Bedside Potassium 3.8 mmol/L (3.5-5.0) Bedside Chloride 105 mmol/L (98-110) Bedside Total CO2 28 mmol/L (23-32) Bedside Blood Urea Nitrogen 19 mg/dL (8-26) Bedside Creatinine 1.5 mg/dL (0.5-1.4) Bedside Ionized Calcium (Claudia) 1.20 mmol/L (1.13-1.32) Urine Color Yellow Urine Clarity Clear Urine pH 8.5 Urine Specific [place] 1.010 Urine Protein Negative mg/dL (NEG-TRACE) Urine Glucose (UA) Negative mg/dL (NEG) Urine Ketones (Stick) Negative mg/dL (NEG) Urine Blood Negative (NEG) Urine Nitrite Negative (NEG) Urine Bilirubin Negative (NEG) Urine Urobilinogen Dipstick 0.2 mg/dL (0.2 mg/dL) Urine Leukocyte Esterase Trace (NEG) Urine RBC 0 /HPF (0-2) Urine WBC 11-20 /HPF (0-4) Urine Squamous Epithelial Cells Mod /LPF Urine Transitional Epithelial Cells Few /LPF Urine Bacteria 0 /HPF (0-FEW) Urine Hyaline Casts Many /HPF Urine Mucus Mod /LPF Test 02/16/19 21:30 02/17/19 04:30 02/17/19 10:30 Heparin Anti-Xa Act, Unfractionated 0.69 IU/mL (0.30-0.70) 0.45 IU/mL (0.30-0.70) 0.46 IU/mL (0.30-0.70) Troponin I Quantitative 0.089 ng/mL (0.000-0.055) White Blood Count 9.4 x10^3/uL (4.0-11.0) Red Blood Count 4.65 x10^6/uL (3.50-5.40) Hemoglobin 13.7 g/dL (12.0-15.5) Hematocrit 42.1 % (36.0-47.0) Mean Corpuscular Volume 91 fL (79-100) Mean Corpuscular Hemoglobin 29 pg (25-35) Mean Corpuscular Hemoglobin Concent 33 g/dL (31-37) Red Cell Distribution Width 14.7 % (11.5-14.5) Platelet Count 152 x10^3/uL (140-400) Magnesium Level 2.0 mg/dL (1.8-2.4) Laboratory Tests Test 02/16/19 17:10 02/16/19 19:45 02/16/19 21:30 02/17/19 04:30 Urine Color Yellow Urine Clarity Clear Urine pH 8.5 Urine Specific [place] 1.010 Urine Protein Negative mg/dL (NEG-TRACE) Urine Glucose (UA) Negative mg/dL (NEG) Urine Ketones (Stick) Negative mg/dL (NEG) Urine Blood Negative (NEG) Urine Nitrite Negative (NEG) Urine Bilirubin Negative (NEG) Urine Urobilinogen Dipstick 0.2 mg/dL (0.2 mg/dL) Urine Leukocyte Esterase Trace (NEG) Urine RBC 0 /HPF (0-2) Urine WBC 11-20 /HPF (0-4) Urine Squamous Epithelial Cells Mod /LPF Urine Transitional Epithelial Cells Few /LPF Urine Bacteria 0 /HPF (0-FEW) Urine Hyaline Casts Many /HPF Urine Mucus Mod /LPF Troponin I Quantitative 0.074 ng/mL (0.000-0.055) 0.089 ng/mL (0.000-0.055) Heparin Anti-Xa Act, Unfractionated 0.69 IU/mL (0.30-0.70) 0.45 IU/mL (0.30-0.70) White Blood Count 9.4 x10^3/uL (4.0-11.0) Red Blood Count 4.65 x10^6/uL (3.50-5.40) Hemoglobin 13.7 g/dL (12.0-15.5) Hematocrit 42.1 % (36.0-47.0) Mean Corpuscular Volume 91 fL (79-100) Mean Corpuscular Hemoglobin 29 pg (25-35) Mean Corpuscular Hemoglobin Concent 33 g/dL (31-37) Red Cell Distribution Width 14.7 % (11.5-14.5) Platelet Count 152 x10^3/uL (140-400) Magnesium Level 2.0 mg/dL (1.8-2.4) Test 02/17/19 10:30 Heparin Anti-Xa Act, Unfractionated 0.46 IU/mL (0.30-0.70) Assessment/Plan Assessment/Plan This patient is 78-year-old woman information obtained from patient, patient's family member at bedside. They report patient had episode of syncope patient was not responding appropriately. Patient denied any complaint of tingling numbness on the face. Patient denies any complaint of difficulty speaking. Patient denies any complaint of focal extremity weakness. Patient has previously been evaluated for elevated troponins by cardiology patient had cardiac workup done previously Patient was complaining of some abdominal discomfort. Patient denies any complaint of headache nausea or vomiting shortness of breath dizziness. This patient has past medical history of multiple medical problems history of hypertension hyperlipidemia A fib hypothyroidism Patient presented with episode of syncope with elevated troponin patient is also getting cardiac workup, workup for abdominal discomfort. Will get CT scan brain, carotid Doppler to evaluate for any acute intracranial etiology. Further workup depending on initial test results. Continue medical management. Plan discussed with patient, patient's family at bedside in detail Thank you for allowing me to take part in this patient's care. Please not hesitate to contact me with questions. Transcribed using dictation device. The dictation could contain irregularities inherent in the voice to text conversion software, which may not be detected during the document review process. Please contact our office in case of any confusion or for any clarification, as needed. JC CHENG MD Feb 17, 2019 15:30
--- NOTE | 2019-02-17 16:45 | RAD ---
EXAM: CT HEAD WITHOUT CONTRAST. HISTORY: Syncope, fall. TECHNIQUE: Computed tomography of the head was performed without intravenous contrast. One or more of the following individualized dose reduction techniques were utilized for this examination: 1. Automated exposure control. 2. Adjustment of the mA and/or kV according to patient size. 3. Use of iterative reconstruction technique. COMPARISON: None. FINDINGS: There is a small left hemispheric subdural hematoma measuring 3 mm in thickness. Rightward midline shift measures 3 mm. Hypoattenuation within the periventricular white matter indicates mild chronic microangiopathic change. The ventricles are normal in size for patient age. The visualized paranasal sinuses appear clear. The orbits are unremarkable. The temporal bones are unremarkable. The calvarium reveals no suspicious lesions. IMPRESSION: 1. Small acute to subacute left hemispheric subdural hematoma. 3 mm rightward midline shift. These findings were called to [facility] by Felipe Be on 02/17/2019 at 4:41 PM. Electronically signed by: Stephany Be MD (02/17/2019 4:42 PM) [facility]
--- NOTE | 2019-02-17 17:24 | NUR ---
approximately 1642, recvd call from radiology advising result of head CT showing a small left hemispheric subdural hematoma with a right midline shift. Pgd and spoke to neurology and received orders to consult neuro surgery, MRI in AM and discontinue heparin infusion. Also paged and advised cardiology and primary of current results. Per cardiology, patient should be closely watched and needs to be transferred to ICU. Called patients daughter to return to hospital due to new information and to be at bedside with patient for support.
--- NOTE | 2019-02-17 17:42 | RAD ---
EXAM: Carotid Doppler sonogram. HISTORY: Syncope. TECHNIQUE: Bear scale and color Doppler sonographic evaluation of the neck with spectral waveform analysis was performed and static images are submitted for review. FINDINGS: There is mild atherosclerotic plaque within the carotid bifurcations. The peak systolic velocity within the right common carotid artery is 170 cm/sec. The peak systolic velocity within the right internal carotid artery is 181 cm/sec and the end diastolic velocity within the right internal carotid artery is 28 cm/sec. The right ICA/CCA ratio is 1.1. The peak systolic velocity within the left common carotid artery is 175 cm/sec. The peak systolic velocity within the left internal carotid artery is 123 cm/sec and the end diastolic velocity within the left internal carotid artery is 20 cm/sec. The left ICA/CCA ratio is 0.7. There is normal antegrade flow within both vertebral arteries. IMPRESSION: 1. Elevated peak systolic velocity within the right ICA. Despite a normal ICA to CCA ratio, this suggests 50-69 percent stenosis. 2. Upper normal peak systolic velocity within the left ICA, suggesting near 50 percent stenosis. PQRS Compliance Statement - Stenosis calculations for CT, MR and conventional angiography are based upon measurement of the distal ICA diameter in accordance with the NASCET methodology. Stenosis calculations for carotid ultrasound studies are derived from validated velocity criteria which are known to correlate with the NASCET methodology. Electronically signed by: Nirali Lentz MD (02/17/2019 5:40 PM) [id number]
[2019-02-17] MEDS ORDERED: LABETALOL 20 MG/4 ML DISP.SYRIN. IVP PRN (18:15)
[2019-02-17] MEDS ORDERED: LABETALOL 20 MG/4 ML DISP.SYRIN. IVP ONE (18:15)
[2019-02-17] MEDS: cefTRIAXone IV Push 1 GM VIAL. IVP SCH (20:29)
[2019-02-17] MEDS: LACTOBACILLUS RHAMNOSUS GG 1 CAPSULE. PO SCH (20:30)
[2019-02-17] MEDS: TEMAZEPAM 7.5 MG CAPSULE PO PRN (21:22)
--- NOTE | 2019-02-17 23:56 | CONS ---
DATE OF CONSULTATION: 02/17/2019 GASTROENTEROLOGY CONSULTATION REASON FOR CONSULTATION: Abdominal pain, mental status change. HISTORY OF PRESENT ILLNESS: A 78-year-old female with past medical history significant for AFib, hypertension, hypothyroidism, status post DC, status post appendectomy, hysterectomy as well as cardiac stents, was admitted to [facility], associated with abdominal pain. She is also noted to have an episode of unresponsiveness. Per discussion with the patient's daughter, she was apparently sitting on a table with family performing working up puzzle when she became unresponsive. She had placed a look in her eyes and did not respond to questions. She was hypotensive at the time that paramedics did arrive. Subsequent evaluation has been unrevealing for acute DC. Consultation is requested with ongoing abdominal pain. She does avoid fatty and greasy foods, but still eats spicy foods which do cause some discomfort. No family history of peptic ulcer disease or gallbladder disease was encountered. The patient states she has not had the pain before and presently is having some mild discomfort. PAST MEDICAL HISTORY: AFib, hypertension, hypothyroidism, status post appendectomy, hysterectomy, status post DC, status post cardiac stents. ALLERGIES: CODEINE. MEDICATIONS: Include Nitrostat, Ecotrin, Norvasc, Restoril, Ultram, Zofran, pantoprazole, levothyroxine, morphine. SOCIAL HISTORY: She is retired. She does not drink or smoke at this time. FAMILY HISTORY: Noncontributory. REVIEW OF SYSTEMS: Per records. PHYSICAL EXAMINATION: VITAL SIGNS: Temperature is 98.4, pulse 84, respiratory rate 16, blood pressure is 146/68. HEENT: Reveals normocephalic, atraumatic head. Pupils and extraocular muscles are not tested. Sclerae anicteric. NECK: Supple. LUNGS: Clear. CARDIOVASCULAR: Reveals an S1, S2 without S3, S4 or appreciable murmur. ABDOMEN: Reveals a soft abdomen, normal bowel sounds, without appreciable hepatosplenomegaly with epigastric tenderness to deep palpation. EXTREMITIES: Reveals no cyanosis, clubbing or edema. LABORATORY STUDIES: Sodium 142, potassium 3.8, chloride 105, glucose 152. Hemoglobin is 17.5. Sodium 150, potassium 3.8. Liver function tests are normal. CT scan of the abdomen and pelvis did not reveal any aneurysmal disease, mass or abscess. IMPRESSION: Abdominal pain, etiology is to be determined. Transient ischemic attack is noted per discussion with family, certainly is suggestive of a transient ischemic attack, although a vagal event with hypertension certainly is possible as well. Therefore, I recommend further workup including hepatobiliary imaging, ultrasound and a Neurology consult to further assess. If the ultrasound is unrevealing, ____ we would like to proceed with and PIPIDA scan will be pursued after this. CITLALLI LIMA MD DR: LUCERO/baldomero JOB#: [id number] / [id number]
[2019-02-18] VITALS (15 sets, daily range): BP systolic 100–171; BP diastolic 43–86
[2019-02-18 05:14] LABS: HEMATOCRIT 41.8 % (36.0-47.0); HEMOGLOBIN 13.6 g/dL (12.0-15.5)
[2019-02-18 05:35] LABS: CALCIUM 8.8 mg/dL (8.5-10.1); CREATININE 1.1 mg/dL (0.6-1.0); GFR 58.4; POTASSIUM 3.9 mmol/L (3.5-5.1)
[2019-02-18 05:43] LABS: CHOLESTEROL/HDL RATIO 3.3
[2019-02-18] MEDS: LEVOTHYROXINE 100 MCG TABLET PO SCH (06:43)
[2019-02-18] MEDS: IPRATRPIUM/ALBUTEROL 0.5/2.5MG 3 ML NEBU. NEB SCH ×4 (07:48→20:33)
--- NOTE | 2019-02-18 08:25 | RAD ---
ABDOMEN LTD History: Abdominal pain Comparison: August 09, 2013 Findings: Multiple sonographic images of the abdomen are submitted. Exam is somewhat limited due to bowel gas. There is no abnormality of the visualized pancreas. There is segmental visualization of the inferior vena cava. No focal hepatic lesion is demonstrated. Right lobe of the liver measured 16.5 cm longitudinal. Common bile duct is somewhat prominent 0.8 cm. There is minimal echogenicity in the gallbladder lumen likely due to sludge. Gallbladder wall thickness is borderline about 0.3 cm. Right kidney measured 9.3 x 4.1 x 3.3 cm, no hydronephrosis. Impression: 1. There is minimal gallbladder sludge. There is mild dilatation of the common bile duct. Electronically signed by: Aly Leung MD (02/18/2019 8:22 AM) [id number]
[2019-02-18] MEDS: BENZONATATE 100 MG CAPSULE. PO SCH ×4 (09:00→21:00)
--- NOTE | 2019-02-18 09:13 | PDOC ---
PROGRESS NOTES Chief Complaint Chief Complaint Transient Slurred speech Acute to subacute left hemispheric subdural hematoma. 3 mm rightward midline shift. Trop elev x 3 (o.06, 0.0.7, 0.08) - no CP CAD with 1 stent on ASA 81 and compliant COPD Ex smoker, quit 10 yrs, 30 pack yrs Left arm pain since oct 2018, left wrist pain - follows with Dr Bardales, unrecalled recent abx Left second digit wound and swelling - wound care, on unrecalled abx currently Abd pain since october, burning, neg CT Right internal carotid artery 50-69 percent stenosis, left internal carotid artery 50 percent stenosis. History of Present Illness History of Present Illness NO CP, initially on heparin gtt per cards bec of elev trop x 3, rather mild. Stopped 2/2 subdural hematoma noted on 02/17/19. Transferred to ICU for further care. Left second digit paronychia - on abx per physiatry seen as OP, abd pain,s econd admission for the same with neg CT - consulted GI, COPD - pulmo on board, left wrist/arm pain, started Oct 2018 when she had LCH through RIGHT [facility]RI[facility] - sees neurology outpatient Slept ok last night, no new complaints. CT head with mild interval improvement in midline shift. Our MRI is down currently. Awaiting Neurosurgery evaluation. Plan: Neurosurgery consultation Add physiatry consult for the left wrist arm pain Add GI consult for that abd pain with neg CT - she describes as burning, never has seen GI Wound care to see left finger Vitals Vitals Vital Signs Date Time Temp Pulse Resp B/P (MAP) Pulse Ox O2 Delivery O2 Flow Rate FiO2 02/18/19 07:51 97 Room Air 02/18/19 06:00 54 17 165/77 (106) 02/18/19 04:00 98.1 98.1 02/17/19 12:13 2.0 Physical Exam General: Alert, Oriented X3, Cooperative, No acute distress Heart: Regular rate, Normal S1, Normal S2 Lungs: Clear Abdomen: Normal bowel sounds, Soft, No tenderness, No hepatosplenomegaly Extremities: No clubbing, No cyanosis, Normal pulses, Other (she has left second digit paronychia) Skin: No rashes, No breakdown, No significant lesion Labs LABS Laboratory Tests Test 02/17/19 10:30 02/18/19 04:50 Heparin Anti-Xa Act, Unfractionated 0.46 IU/mL (0.30-0.70) < 0.10 IU/mL (0.30-0.70) Hemoglobin 13.6 g/dL (12.0-15.5) Hematocrit 41.8 % (36.0-47.0) Mean Corpuscular Hemoglobin Concent 33 g/dL (31-37) Sodium Level 142 mmol/L (136-145) Potassium Level 3.9 mmol/L (3.5-5.1) Chloride Level 108 mmol/L (98-107) Carbon Dioxide Level 26 mmol/L (21-32) Anion Gap 8 (6-14) Blood Urea Nitrogen 8 mg/dL (7-20) Creatinine 1.1 mg/dL (0.6-1.0) Estimated GFR (Cockcroft-Gault) 58.4 Glucose Level 99 mg/dL (70-99) Calcium Level 8.8 mg/dL (8.5-10.1) Triglycerides Level 69 mg/dL (0-150) Cholesterol Level 182 mg/dL (0-200) LDL Cholesterol, Calculated 112 mg/dL (0-100) VLDL Cholesterol, Calculated 14 mg/dL (0-40) Non-HDL Cholesterol Calculated 126 mg/dL (0-129) HDL Cholesterol 56 mg/dL (40-60) Cholesterol/HDL Ratio 3.3 Assessment and Plan Assessmemt and Plan Problems Medical Problems: (1) Acute kidney injury Status: Acute (2) Atypical chest pain Status: Acute (3) Elevated troponin I level Status: Acute (4) Syncope Status: Acute Comment Review of Relevant I have reviewed the following items tigre (where applicable) has been applied. Labs Laboratory Tests Test 02/16/19 13:20 02/16/19 13:29 02/16/19 17:10 02/16/19 19:45 White Blood Count 10.6 x10^3/uL (4.0-11.0) Red Blood Count 5.34 x10^6/uL (3.50-5.40) Hemoglobin 15.9 g/dL (12.0-15.5) Hematocrit 48.0 % (36.0-47.0) Mean Corpuscular Volume 90 fL (79-100) Mean Corpuscular Hemoglobin 30 pg (25-35) Mean Corpuscular Hemoglobin Concent 33 g/dL (31-37) Red Cell Distribution Width 14.6 % (11.5-14.5) Platelet Count 181 x10^3/uL (140-400) Neutrophils (%) (Auto) 58 % (31-73) Lymphocytes (%) (Auto) 32 % (24-48) Monocytes (%) (Auto) 7 % (0-9) Eosinophils (%) (Auto) 3 % (0-3) Basophils (%) (Auto) 1 % (0-3) Neutrophils # (Auto) 6.1 x10^3/uL (1.8-7.7) Lymphocytes # (Auto) 3.4 x10^3/uL (1.0-4.8) Monocytes # (Auto) 0.7 x10^3/uL (0.0-1.1) Eosinophils # (Auto) 0.3 x10^3/uL (0.0-0.7) Basophils # (Auto) 0.1 x10^3/uL (0.0-0.2) Sodium Level 143 mmol/L (136-145) Potassium Level 3.8 mmol/L (3.5-5.1) Chloride Level 104 mmol/L (98-107) Carbon Dioxide Level 28 mmol/L (21-32) Anion Gap 11 (6-14) 14 mmol/L (6-14) Blood Urea Nitrogen 16 mg/dL (7-20) Creatinine 1.6 mg/dL (0.6-1.0) Estimated GFR (Cockcroft-Gault) 37.9 BUN/Creatinine Ratio 10 (6-20) Glucose Level 156 mg/dL (70-99) 152 mg/dL (70-99) Calcium Level 9.9 mg/dL (8.5-10.1) Magnesium Level 2.0 mg/dL (1.8-2.4) Total Bilirubin 0.6 mg/dL (0.2-1.0) Aspartate Amino Transf (AST/SGOT) 23 U/L (15-37) Alanine Aminotransferase (ALT/SGPT) 22 U/L (14-59) Alkaline Phosphatase 93 U/L (46-116) Troponin I Quantitative 0.061 ng/mL (0.000-0.055) 0.074 ng/mL (0.000-0.055) BV-Vyd-P-Type Natriuretic Peptide 972 pg/mL (0-449) Total Protein 7.0 g/dL (6.4-8.2) Albumin 3.2 g/dL (3.4-5.0) Albumin/Globulin Ratio 0.8 (1.0-1.7) Lipase 92 U/L (73-393) Bedside Hemoglobin 17.0 g/dL (12-15) Bedside Hematocrit 50 % (36-40) Bedside Sodium 142 mmol/L (135-145) Bedside Potassium 3.8 mmol/L (3.5-5.0) Bedside Chloride 105 mmol/L (98-110) Bedside Total CO2 28 mmol/L (23-32) Bedside Blood Urea Nitrogen 19 mg/dL (8-26) Bedside Creatinine 1.5 mg/dL (0.5-1.4) Bedside Ionized Calcium (Claudia) 1.20 mmol/L (1.13-1.32) Urine Color Yellow Urine Clarity Clear Urine pH 8.5 Urine Specific [place] 1.010 Urine Protein Negative mg/dL (NEG-TRACE) Urine Glucose (UA) Negative mg/dL (NEG) Urine Ketones (Stick) Negative mg/dL (NEG) Urine Blood Negative (NEG) Urine Nitrite Negative (NEG) Urine Bilirubin Negative (NEG) Urine Urobilinogen Dipstick 0.2 mg/dL (0.2 mg/dL) Urine Leukocyte Esterase Trace (NEG) Urine RBC 0 /HPF (0-2) Urine WBC 11-20 /HPF (0-4) Urine Squamous Epithelial Cells Mod /LPF Urine Transitional Epithelial Cells Few /LPF Urine Bacteria 0 /HPF (0-FEW) Urine Hyaline Casts Many /HPF Urine Mucus Mod /LPF Test 02/16/19 21:30 02/17/19 04:30 02/17/19 10:30 02/18/19 04:50 Heparin Anti-Xa Act, Unfractionated 0.69 IU/mL (0.30-0.70) 0.45 IU/mL (0.30-0.70) 0.46 IU/mL (0.30-0.70) < 0.10 IU/mL (0.30-0.70) Troponin I Quantitative 0.089 ng/mL (0.000-0.055) White Blood Count 9.4 x10^3/uL (4.0-11.0) Red Blood Count 4.65 x10^6/uL (3.50-5.40) Hemoglobin 13.7 g/dL (12.0-15.5) 13.6 g/dL (12.0-15.5) Hematocrit 42.1 % (36.0-47.0) 41.8 % (36.0-47.0) Mean Corpuscular Volume 91 fL (79-100) Mean Corpuscular Hemoglobin 29 pg (25-35) Mean Corpuscular Hemoglobin Concent 33 g/dL (31-37) 33 g/dL (31-37) Red Cell Distribution Width 14.7 % (11.5-14.5) Platelet Count 152 x10^3/uL (140-400) Magnesium Level 2.0 mg/dL (1.8-2.4) Sodium Level 142 mmol/L (136-145) Potassium Level 3.9 mmol/L (3.5-5.1) Chloride Level 108 mmol/L (98-107) Carbon Dioxide Level 26 mmol/L (21-32) Anion Gap 8 (6-14) Blood Urea Nitrogen 8 mg/dL (7-20) Creatinine 1.1 mg/dL (0.6-1.0) Estimated GFR (Cockcroft-Gault) 58.4 Glucose Level 99 mg/dL (70-99) Calcium Level 8.8 mg/dL (8.5-10.1) Triglycerides Level 69 mg/dL (0-150) Cholesterol Level 182 mg/dL (0-200) LDL Cholesterol, Calculated 112 mg/dL (0-100) VLDL Cholesterol, Calculated 14 mg/dL (0-40) Non-HDL Cholesterol Calculated 126 mg/dL (0-129) HDL Cholesterol 56 mg/dL (40-60) Cholesterol/HDL Ratio 3.3 Laboratory Tests Test 02/17/19 10:30 02/18/19 04:50 Heparin Anti-Xa Act, Unfractionated 0.46 IU/mL (0.30-0.70) < 0.10 IU/mL (0.30-0.70) Hemoglobin 13.6 g/dL (12.0-15.5) Hematocrit 41.8 % (36.0-47.0) Mean Corpuscular Hemoglobin Concent 33 g/dL (31-37) Sodium Level 142 mmol/L (136-145) Potassium Level 3.9 mmol/L (3.5-5.1) Chloride Level 108 mmol/L (98-107) Carbon Dioxide Level 26 mmol/L (21-32) Anion Gap 8 (6-14) Blood Urea Nitrogen 8 mg/dL (7-20) Creatinine 1.1 mg/dL (0.6-1.0) Estimated GFR (Cockcroft-Gault) 58.4 Glucose Level 99 mg/dL (70-99) Calcium Level 8.8 mg/dL (8.5-10.1) Triglycerides Level 69 mg/dL (0-150) Cholesterol Level 182 mg/dL (0-200) LDL Cholesterol, Calculated 112 mg/dL (0-100) VLDL Cholesterol, Calculated 14 mg/dL (0-40) Non-HDL Cholesterol Calculated 126 mg/dL (0-129) HDL Cholesterol 56 mg/dL (40-60) Cholesterol/HDL Ratio 3.3 Medications Current Medications Morphine Sulfate (Morphine Sulfate) 4 mg PRN Q15MIN PRN IV/SQ PAIN GREATER THAN 3/10 Last administered on 02/16/19at 15:05; Start 02/16/19 at 13:30; Stop 02/17/19 at 07:10; Status DC Sodium Chloride 1,000 ml @ 125 mls/hr 1X ONCE IV Last administered on 02/16/19at 13:54; Start 02/16/19 at 14:00; Stop 02/16/19 at 21:59; Status DC Heparin Sodium (Porcine) (Heparin Sodium) 4,000 unit 1X ONCE IV Last administered on 02/16/19at 15:11; Start 02/16/19 at 15:15; Stop 02/16/19 at 15:16; Status DC Heparin Sodium/ Dextrose 500 ml @ 0 mls/hr CONT PRN IV PER PROTOCOL Last administered on 02/16/19at 15:16; Start 02/16/19 at 15:30; Stop 02/17/19 at 17:17; Status DC Heparin Sodium (Porcine) (Heparin Sodium) 1,950 unit PRN Q6HRS PRN IV FOR UFH LEVEL LESS THAN 0.2; Start 02/16/19 at 15:30; Stop 02/17/19 at 17:17; Status DC Ondansetron HCl (Zofran) 4 mg PRN Q8HRS PRN IV NAUSEA/VOMITING; Start 02/16/19 at 15:45; Stop 02/17/19 at 08:40; Status DC Morphine Sulfate (Morphine Sulfate) 4 mg PRN Q2HR PRN IV PAIN Last administered on 02/17/19 11:43; Start 02/16/19 at 15:45; Stop 02/17/19 at 15:44; Status DC Sodium Chloride 1,000 ml @ 125 mls/hr Q8H IV Last administered on 02/17/19 06:52; Start 02/16/19 at 15:31; Stop 02/17/19 at 15:30; Status DC Ceftriaxone Sodium (Rocephin) 1 gm Q24H IVP Last administered on 02/17/19 20:29; Start 02/16/19 at 20:00 Amlodipine Besylate (Norvasc) 5 mg DAILY PO Last administered on 02/17/19 09:29; Start 02/17/19 at 09:00 Aspirin (Ecotrin) 81 mg DAILY PO Last administered on 02/17/19 09:29; Start 02/17/19 at 09:00; Stop 02/17/19 at 17:17; Status DC Vitamin D (Vitamin D3) 6,000 unit DAILY PO Last administered on 02/17/19 09:28; Start 02/17/19 at 09:00 Acetaminophen/ Hydrocodone Bitart (Lortab 5/325) 1 tab PRN Q6HRS PRN PO MODERATE PAIN, SEVERE PAIN Last administered on 02/17/19 19:12; Start 02/16/19 at 19:30 Levothyroxine Sodium (Synthroid) 100 mcg DAILY07 PO Last administered on 02/18/19 06:43; Start 02/17/19 at 07:00 Multivitamins (Thera M Plus) 1 tab DAILY PO Last administered on 02/17/19 09:27; Start 02/17/19 at 09:00 Non-Formulary Medication (Vit A & D3 In Cod Liver Oil (Cod Liver Oil Softgel)) 1 each DAILY PO ; Start 02/17/19 at 09:00; Status UNV Diphenhydramine HCl (Benadryl) 25 mg PRN QHS PRN PO INSOMNIA; Start 02/16/19 at 21:15 Pantoprazole Sodium (Protonix) 40 mg DAILYAC PO Last administered on 02/17/19at 09:29; Start 02/17/19 at 07:30 Albuterol/ Ipratropium (Duoneb) 3 ml RTQID NEB Last administered on 02/18/19at 07:48; Start 02/17/19 at 08:00 Ondansetron HCl (Zofran) 4 mg PRN Q6HRS PRN IV NAUSEA/VOMITING; Start 02/17/19 at 08:45 Benzonatate (Tessalon Perle) 100 mg [id number] PO ; Start 02/17/19 at 09:00 Guaifenesin (Robitussin Dm) 10 ml PRN Q6HRS PRN PO COUGH; Start 02/17/19 at 08:45 Tramadol HCl (Ultram) 50 mg PRN Q6HRS PRN PO MILD PAIN 1-3; Start 02/17/19 at 08:45 Calcium Carbonate/ Glycine (Tums) 500 mg PRN AFTMEALHC PRN PO INDIGESTION Last administered on 02/17/19at 11:56; Start 02/17/19 at 08:45 Temazepam (Restoril) 7.5 mg PRN QHS PRN PO INSOMNIA Last administered on 02/17/19at 21:22; Start 02/17/19 at 08:45 Nitroglycerin (Nitrostat) 0.4 mg PRN Q5MIN PRN SL CHEST PAIN Last administered on 02/17/19at 11:58; Start 02/17/19 at 12:00 Lactobacillus Rhamnosus (Culturelle) 1 cap BID PO Last administered on 02/17/19at 20:30; Start 02/17/19 at 21:00 Labetalol HCl (Normodyne Iv Push) 20 mg 1X ONCE IVP Last administered on 02/17/19at 18:40; Start 02/17/19 at 18:15; Stop 02/17/19 at 18:16; Status DC Labetalol HCl (Normodyne Iv Push) 20 mg PRN Q2HR PRN IVP HYPERTENSION Last administered on 02/18/19at 05:41; Start 02/17/19 at 18:15 Nicardipine HCl 50 mg/Sodium Chloride 250 ml @ 25 mls/hr CONT PRN IV SEE I/O RECORD; Start 02/17/19 at 18:15 Active Scripts Active Reported Cephalexin 500 Mg Capsule 500 Mg PO Q8HRS PRN Cod Liver Oil Softgel (Vit A & D3 In Cod Liver Oil) 1 Each Capsule 1 Each PO DAILY Women's 50 Plus Multivit Tab (Mv-Mn/Folic Acid/Calcium/Vit K) 1 Each Tablet 2 Each PO DAILY Vitamin D3 (Cholecalciferol (Vitamin D3)) 1,000 Unit Tablet 6,000 Unit PO DAILY Amlodipine Besylate 5 Mg Tablet 5 Mg PO DAILY Hydrocodone-Apap 5-325 (Hydrocodone Bit/Acetaminophen) 1 Each Tablet 1 Tab PO PRN Q6HRS PRN Aspir 81 (Aspirin) 81 Mg Tablet. 1 Tab PO DAILY Levothyroxine Sodium 100 Mcg Tablet 100 Mcg PO DAILY Vitals/I & O Vital Sign - Last 24 Hours 02/17/19 02/17/19 02/17/19 02/17/19 09:29 09:30 10:30 11:09 Temp 98.4 98.4 Pulse 72 84 Resp 16 B/P (MAP) 129/59 140/68 (92) Pulse Ox 94 O2 Delivery Room Air Room Air Room Air 02/17/19 02/17/19 02/17/19 02/17/19 11:43 11:58 12:13 14:40 Temp 98.7 98.7 Pulse 56 64 Resp 18 B/P (MAP) 155/63 177/85 (115) Pulse Ox 100 O2 Delivery Nasal Cannula Nasal Cannula Room Air O2 Flow Rate 2.0 2.0 02/17/19 02/17/19 02/17/19 02/17/19 15:38 18:05 18:32 18:40 Temp 98.5 98.5 Pulse 84 78 77 Resp 18 B/P (MAP) 186/75 (112) 167/67 (100) 167/67 Pulse Ox 99 99 O2 Delivery Room Air Room Air 02/17/19 02/17/19 02/17/19 02/17/19 19:00 19:12 19:33 20:00 Temp 98.2 98.2 Pulse 59 62 Resp 20 13 14 B/P (MAP) 156/72 (100) 138/59 (85) Pulse Ox 96 97 97 97 O2 Delivery Room Air Room Air Room Air Room Air 02/17/19 02/17/19 02/17/1919 20:00 20:30 21:00 22:00 Pulse 57 60 Resp 12 14 18 B/P (MAP) 142/63 (89) 127/53 (77) Pulse Ox 98 97 96 O2 Delivery Room Air Room Air Room Air Room Air 02/17/19 02/18/19 02/18/19 02/18/19 23:00 00:00 00:00 01:00 Temp 98.1 98.1 Pulse 63 60 59 Resp 13 12 11 B/P (MAP) 133/55 (81) 113/46 (68) 117/52 (73) Pulse Ox 96 95 96 O2 Delivery Room Air Room Air Room Air Room Air 02/18/19 02/18/19 02/18/19 02/18/19 02:00 03:00 04:00 04:00 Temp 98.1 98.1 Pulse 68 57 58 Resp 12 20 16 B/P (MAP) 100/43 (62) 119/51 (73) 117/52 (73) Pulse Ox 95 96 99 O2 Delivery Room Air Room Air Room Air Room Air 02/18/19 02/18/19 02/18/19 02/18/19 05:00 05:41 06:00 07:51 Pulse 58 57 54 Resp 14 17 B/P (MAP) 127/67 (87) 165/77 165/77 (106) Pulse Ox 98 97 97 O2 Delivery Room Air Room Air Room Air Intake and Output 02/17/19 02/17/19 02/18/19 15:00 23:00 07:00 Intake Total 600 ml 540 ml Output Total 0 ml Balance 600 ml 540 ml 0 ml KAVITA FREEMAN MD Feb 18, 2019 09:13
[2019-02-18] MEDS: CHOLECALCIFEROL (VITAMIN D3) 1,000 UNIT TABLET PO SCH (09:24)
[2019-02-18] MEDS: LACTOBACILLUS RHAMNOSUS GG 1 CAPSULE. PO SCH ×2 (09:24→20:15)
[2019-02-18] MEDS: MULTIVITAMIN with MINERAL TABLET. PO SCH (09:24)
[2019-02-18] MEDS: amLODIPine BESYLATE 5 MG TABLET PO SCH (09:25)
[2019-02-18] MEDS: PANTOPRAZOLE 40 MG TABLET.DR. PO SCH (09:25)
[2019-02-18] MEDS: HYDROcodone/APAP 5/325MG 1 TAB TABLET PO PRN (09:29)
--- NOTE | 2019-02-18 09:32 | RAD ---
CT head without contrast PQRS statement: CT scans at this facility use dose reduction including either automated exposure control, iterative reconstructions, and /or weight based radiation dosing via mA and kV modification when appropriate to reduce radiation dose to as low as reasonably achievable. HISTORY: Interval follow-up 24 hours after syncope and fall, subdural hematoma. COMPARISON: CT head February 17, 2019. FINDINGS: Mixed density left hemispheric subdural hematoma thickness of 3-4 mm on axial images is stable. On the coronal reconstructions of thickness is 6 mm however no coronals were acquired on the prior study for direct comparison; overall hematoma is stable based on axial imaging. In light of this there is slight improvement of the midline shift currently measuring 1 mm, previously was 2-3 mm. No new site of hemorrhage is a prior exam. No mass. No infarct. Mild generalized brain atrophy stable. Imaged orbits, mastoids and bones are unremarkable. IMPRESSION: Stable left hemispheric mixed density acute/subacute subdural hematoma. See discussion above. Electronically signed by: Wes Bowers MD (02/18/2019 9:29 AM) [id number]
--- NOTE | 2019-02-18 10:11 | PDOC ---
PROGRESS NOTES Assessment Problems Medical Problems: (1) Acute kidney injury Status: Acute (2) Atypical chest pain Status: Acute (3) Elevated troponin I level Status: Acute (4) Syncope Status: Acute Syncope, doubt seizure. Patient with known cardiac disease Small left subdural hematoma with 3 mm of midline shift Has had left arm pain and numbness for 4 months for which she is scheduled to see me 04/24 Right internal carotid artery 50-69 percent stenosis, left internal carotid artery 50 percent stenosis. Plan Await neurosurgery Await brain MRI Cardiology is following as well I will check an EEG for completeness Objective Vital Signs Date Time Temp Pulse Resp B/P (MAP) Pulse Ox O2 Delivery O2 Flow Rate FiO2 02/18/19 07:51 97 Room Air 02/18/19 06:00 54 17 165/77 (106) 02/18/19 04:00 98.1 98.1 02/17/19 12:13 2.0 Intake and Output 02/18/19 07:00 Intake Total 1140 ml Output Total 0 ml Balance 1140 ml Intake Oral 1140 ml Output Urine Total 0 ml # Voids 5 # Bowel Movements 1 PHYSICAL EXAM Alert. Oriented to time, place and person. PERRL. EOMI. CN: no focal findings. Muscle tone: normal. Muscle strength: 5/5 DTR: 1-2+ Plantar reflex: flexor Gait: not examined in bed. Sensory exam: no abnormal findings. No cerebellar signs elicited. Review of Relevant I have reviewed the following items tigre (where applicable) has been applied. Labs Laboratory Tests Test 02/16/19 13:20 02/16/19 13:29 02/16/19 17:10 02/16/19 19:45 White Blood Count 10.6 x10^3/uL (4.0-11.0) Red Blood Count 5.34 x10^6/uL (3.50-5.40) Hemoglobin 15.9 g/dL (12.0-15.5) Hematocrit 48.0 % (36.0-47.0) Mean Corpuscular Volume 90 fL (79-100) Mean Corpuscular Hemoglobin 30 pg (25-35) Mean Corpuscular Hemoglobin Concent 33 g/dL (31-37) Red Cell Distribution Width 14.6 % (11.5-14.5) Platelet Count 181 x10^3/uL (140-400) Neutrophils (%) (Auto) 58 % (31-73) Lymphocytes (%) (Auto) 32 % (24-48) Monocytes (%) (Auto) 7 % (0-9) Eosinophils (%) (Auto) 3 % (0-3) Basophils (%) (Auto) 1 % (0-3) Neutrophils # (Auto) 6.1 x10^3/uL (1.8-7.7) Lymphocytes # (Auto) 3.4 x10^3/uL (1.0-4.8) Monocytes # (Auto) 0.7 x10^3/uL (0.0-1.1) Eosinophils # (Auto) 0.3 x10^3/uL (0.0-0.7) Basophils # (Auto) 0.1 x10^3/uL (0.0-0.2) Sodium Level 143 mmol/L (136-145) Potassium Level 3.8 mmol/L (3.5-5.1) Chloride Level 104 mmol/L (98-107) Carbon Dioxide Level 28 mmol/L (21-32) Anion Gap 11 (6-14) 14 mmol/L (6-14) Blood Urea Nitrogen 16 mg/dL (7-20) Creatinine 1.6 mg/dL (0.6-1.0) Estimated GFR (Cockcroft-Gault) 37.9 BUN/Creatinine Ratio 10 (6-20) Glucose Level 156 mg/dL (70-99) 152 mg/dL (70-99) Calcium Level 9.9 mg/dL (8.5-10.1) Magnesium Level 2.0 mg/dL (1.8-2.4) Total Bilirubin 0.6 mg/dL (0.2-1.0) Aspartate Amino Transf (AST/SGOT) 23 U/L (15-37) Alanine Aminotransferase (ALT/SGPT) 22 U/L (14-59) Alkaline Phosphatase 93 U/L (46-116) Troponin I Quantitative 0.061 ng/mL (0.000-0.055) 0.074 ng/mL (0.000-0.055) [place]-Pmc-G-Type Natriuretic Peptide 972 pg/mL (0-449) Total Protein 7.0 g/dL (6.4-8.2) Albumin 3.2 g/dL (3.4-5.0) Albumin/Globulin Ratio 0.8 (1.0-1.7) Lipase 92 U/L (73-393) Bedside Hemoglobin 17.0 g/dL (12-15) Bedside Hematocrit 50 % (36-40) Bedside Sodium 142 mmol/L (135-145) Bedside Potassium 3.8 mmol/L (3.5-5.0) Bedside Chloride 105 mmol/L (98-110) Bedside Total CO2 28 mmol/L (23-32) Bedside Blood Urea Nitrogen 19 mg/dL (8-26) Bedside Creatinine 1.5 mg/dL (0.5-1.4) Bedside Ionized Calcium (Claudia) 1.20 mmol/L (1.13-1.32) Urine Color Yellow Urine Clarity Clear Urine pH 8.5 Urine Specific [place] 1.010 Urine Protein Negative mg/dL (NEG-TRACE) Urine Glucose (UA) Negative mg/dL (NEG) Urine Ketones (Stick) Negative mg/dL (NEG) Urine Blood Negative (NEG) Urine Nitrite Negative (NEG) Urine Bilirubin Negative (NEG) Urine Urobilinogen Dipstick 0.2 mg/dL (0.2 mg/dL) Urine Leukocyte Esterase Trace (NEG) Urine RBC 0 /HPF (0-2) Urine WBC 11-20 /HPF (0-4) Urine Squamous Epithelial Cells Mod /LPF Urine Transitional Epithelial Cells Few /LPF Urine Bacteria 0 /HPF (0-FEW) Urine Hyaline Casts Many /HPF Urine Mucus Mod /LPF Test 02/16/19 21:30 02/17/19 04:30 02/17/19 10:30 02/18/19 04:50 Heparin Anti-Xa Act, Unfractionated 0.69 IU/mL (0.30-0.70) 0.45 IU/mL (0.30-0.70) 0.46 IU/mL (0.30-0.70) < 0.10 IU/mL (0.30-0.70) Troponin I Quantitative 0.089 ng/mL (0.000-0.055) White Blood Count 9.4 x10^3/uL (4.0-11.0) Red Blood Count 4.65 x10^6/uL (3.50-5.40) Hemoglobin 13.7 g/dL (12.0-15.5) 13.6 g/dL (12.0-15.5) Hematocrit 42.1 % (36.0-47.0) 41.8 % (36.0-47.0) Mean Corpuscular Volume 91 fL (79-100) Mean Corpuscular Hemoglobin 29 pg (25-35) Mean Corpuscular Hemoglobin Concent 33 g/dL (31-37) 33 g/dL (31-37) Red Cell Distribution Width 14.7 % (11.5-14.5) Platelet Count 152 x10^3/uL (140-400) Magnesium Level 2.0 mg/dL (1.8-2.4) Sodium Level 142 mmol/L (136-145) Potassium Level 3.9 mmol/L (3.5-5.1) Chloride Level 108 mmol/L (98-107) Carbon Dioxide Level 26 mmol/L (21-32) Anion Gap 8 (6-14) Blood Urea Nitrogen 8 mg/dL (7-20) Creatinine 1.1 mg/dL (0.6-1.0) Estimated GFR (Cockcroft-Gault) 58.4 Glucose Level 99 mg/dL (70-99) Calcium Level 8.8 mg/dL (8.5-10.1) Triglycerides Level 69 mg/dL (0-150) Cholesterol Level 182 mg/dL (0-200) LDL Cholesterol, Calculated 112 mg/dL (0-100) VLDL Cholesterol, Calculated 14 mg/dL (0-40) Non-HDL Cholesterol Calculated 126 mg/dL (0-129) HDL Cholesterol 56 mg/dL (40-60) Cholesterol/HDL Ratio 3.3 Laboratory Tests Test 02/17/19 10:30 02/18/19 04:50 Heparin Anti-Xa Act, Unfractionated 0.46 IU/mL (0.30-0.70) < 0.10 IU/mL (0.30-0.70) Hemoglobin 13.6 g/dL (12.0-15.5) Hematocrit 41.8 % (36.0-47.0) Mean Corpuscular Hemoglobin Concent 33 g/dL (31-37) Sodium Level 142 mmol/L (136-145) Potassium Level 3.9 mmol/L (3.5-5.1) Chloride Level 108 mmol/L (98-107) Carbon Dioxide Level 26 mmol/L (21-32) Anion Gap 8 (6-14) Blood Urea Nitrogen 8 mg/dL (7-20) Creatinine 1.1 mg/dL (0.6-1.0) Estimated GFR (Cockcroft-Gault) 58.4 Glucose Level 99 mg/dL (70-99) Calcium Level 8.8 mg/dL (8.5-10.1) Triglycerides Level 69 mg/dL (0-150) Cholesterol Level 182 mg/dL (0-200) LDL Cholesterol, Calculated 112 mg/dL (0-100) VLDL Cholesterol, Calculated 14 mg/dL (0-40) Non-HDL Cholesterol Calculated 126 mg/dL (0-129) HDL Cholesterol 56 mg/dL (40-60) Cholesterol/HDL Ratio 3.3 Medications Current Medications Morphine Sulfate (Morphine Sulfate) 4 mg PRN Q15MIN PRN IV/SQ PAIN GREATER THAN 3/10 Last administered on 02/16/19at 15:05; Start 02/16/19 at 13:30; Stop 02/17/19 at 07:10; Status DC Sodium Chloride 1,000 ml @ 125 mls/hr 1X ONCE IV Last administered on 02/16/19at 13:54; Start 02/16/19 at 14:00; Stop 02/16/19 at 21:59; Status DC Heparin Sodium (Porcine) (Heparin Sodium) 4,000 unit 1X ONCE IV Last administered on 02/16/19at 15:11; Start 02/16/19 at 15:15; Stop 02/16/19 at 15:16; Status DC Heparin Sodium/ Dextrose 500 ml @ 0 mls/hr CONT PRN IV PER PROTOCOL Last administered on 02/16/19at 15:16; Start 02/16/19 at 15:30; Stop 02/17/19 at 17:17; Status DC Heparin Sodium (Porcine) (Heparin Sodium) 1,950 unit PRN Q6HRS PRN IV FOR UFH LEVEL LESS THAN 0.2; Start 02/16/19 at 15:30; Stop 02/17/19 at 17:17; Status DC Ondansetron HCl (Zofran) 4 mg PRN Q8HRS PRN IV NAUSEA/VOMITING; Start 02/16/19 at 15:45; Stop 02/17/19 at 08:40; Status DC Morphine Sulfate (Morphine Sulfate) 4 mg PRN Q2HR PRN IV PAIN Last administered on 02/17/19 11:43; Start 02/16/19 at 15:45; Stop 02/17/19 at 15:44; Status DC Sodium Chloride 1,000 ml @ 125 mls/hr Q8H IV Last administered on 02/17/19 06:52; Start 02/16/19 at 15:31; Stop 02/17/19 at 15:30; Status DC Ceftriaxone Sodium (Rocephin) 1 gm Q24H IVP Last administered on 02/17/19 20:29; Start 02/16/19 at 20:00 Amlodipine Besylate (Norvasc) 5 mg DAILY PO Last administered on 02/17/19 09:29; Start 02/17/19 at 09:00 Aspirin (Ecotrin) 81 mg DAILY PO Last administered on 02/17/19 09:29; Start 02/17/19 at 09:00; Stop 02/17/19 at 17:17; Status DC Vitamin D (Vitamin D3) 6,000 unit DAILY PO Last administered on 02/17/19 09:28; Start 02/17/19 at 09:00 Acetaminophen/ Hydrocodone Bitart (Lortab 5/325) 1 tab PRN Q6HRS PRN PO MODERATE PAIN, SEVERE PAIN Last administered on 02/17/19 19:12; Start 02/16/19 at 19:30 Levothyroxine Sodium (Synthroid) 100 mcg DAILY07 PO Last administered on 02/18/19 06:43; Start 02/17/19 at 07:00 Multivitamins (Thera M Plus) 1 tab DAILY PO Last administered on 02/17/19 09:27; Start 02/17/19 at 09:00 Non-Formulary Medication (Vit A & D3 In Cod Liver Oil (Cod Liver Oil Softgel)) 1 each DAILY PO ; Start 02/17/19 at 09:00; Status UNV Diphenhydramine HCl (Benadryl) 25 mg PRN QHS PRN PO INSOMNIA; Start 02/16/19 at 21:15 Pantoprazole Sodium (Protonix) 40 mg DAILYAC PO Last administered on 02/17/19 09:29; Start 02/17/19 at 07:30 Albuterol/ Ipratropium (Duoneb) 3 ml RTQID NEB Last administered on 02/18/19at 07:48; Start 02/17/19 at 08:00 Ondansetron HCl (Zofran) 4 mg PRN Q6HRS PRN IV NAUSEA/VOMITING; Start 02/17/19 at 08:45 Benzonatate (Tessalon Perle) 100 mg [id number] PO ; Start 02/17/19 at 09:00 Guaifenesin (Robitussin Dm) 10 ml PRN Q6HRS PRN PO COUGH; Start 02/17/19 at 08:45 Tramadol HCl (Ultram) 50 mg PRN Q6HRS PRN PO MILD PAIN 1-3; Start 02/17/19 at 08:45 Calcium Carbonate/ Glycine (Tums) 500 mg PRN AFTMEALHC PRN PO INDIGESTION Last administered on 02/17/19at 11:56; Start 02/17/19 at 08:45 Temazepam (Restoril) 7.5 mg PRN QHS PRN PO INSOMNIA Last administered on 02/17/19at 21:22; Start 02/17/19 at 08:45 Nitroglycerin (Nitrostat) 0.4 mg PRN Q5MIN PRN SL CHEST PAIN Last administered on 02/17/19at 11:58; Start 02/17/19 at 12:00 Lactobacillus Rhamnosus (Culturelle) 1 cap BID PO Last administered on 02/17/19at 20:30; Start 02/17/19 at 21:00 Labetalol HCl (Normodyne Iv Push) 20 mg 1X ONCE IVP Last administered on 02/17/19at 18:40; Start 02/17/19 at 18:15; Stop 02/17/19 at 18:16; Status DC Labetalol HCl (Normodyne Iv Push) 20 mg PRN Q2HR PRN IVP HYPERTENSION Last administered on 02/18/19at 05:41; Start 02/17/19 at 18:15 Nicardipine HCl 50 mg/Sodium Chloride 250 ml @ 25 mls/hr CONT PRN IV SEE I/O RECORD; Start 02/17/19 at 18:15 Active Scripts Active Reported Cephalexin 500 Mg Capsule 500 Mg PO Q8HRS PRN Cod Liver Oil Softgel (Vit A & D3 In Cod Liver Oil) 1 Each Capsule 1 Each PO DAILY Women's 50 Plus Multivit Tab (Mv-Mn/Folic Acid/Calcium/Vit K) 1 Each Tablet 2 Each PO DAILY Vitamin D3 (Cholecalciferol (Vitamin D3)) 1,000 Unit Tablet 6,000 Unit PO DAILY Amlodipine Besylate 5 Mg Tablet 5 Mg PO DAILY Hydrocodone-Apap 5-325 (Hydrocodone Bit/Acetaminophen) 1 Each Tablet 1 Tab PO PRN Q6HRS PRN Aspir 81 (Aspirin) 81 Mg Tablet. 1 Tab PO DAILY Levothyroxine Sodium 100 Mcg Tablet 100 Mcg PO DAILY Vitals/I & O Vital Sign - Last 24 Hours 02/17/19 02/17/19 02/17/19 02/17/19 10:30 11:09 11:43 11:58 Temp 98.4 98.4 Pulse 84 56 Resp 16 B/P (MAP) 140/68 (92) 155/63 Pulse Ox 94 O2 Delivery Room Air Room Air Nasal Cannula O2 Flow Rate 2.0 02/17/19 02/17/19 02/17/19 02/17/19 12:13 14:40 15:38 18:05 Temp 98.7 98.7 Pulse 64 84 Resp 18 B/P (MAP) 177/85 (115) 186/75 (112) Pulse Ox 100 99 O2 Delivery Nasal Cannula Room Air Room Air O2 Flow Rate 2.0 02/17/19 02/17/19 02/17/19 02/17/19 18:32 18:40 19:00 19:12 Temp 98.5 98.5 Pulse 78 77 59 Resp 18 20 13 B/P (MAP) 167/67 (100) 167/67 156/72 (100) Pulse Ox 99 96 97 O2 Delivery Room Air Room Air Room Air 02/17/19 02/17/19 02/17/19 02/17/19 19:33 20:00 20:00 20:30 Temp 98.2 98.2 Pulse 62 Resp 14 12 B/P (MAP) 138/59 (85) Pulse Ox 97 97 98 O2 Delivery Room Air Room Air Room Air Room Air 02/17/19 02/17/19 02/17/19 02/18/19 21:00 22:00 23:00 00:00 Pulse 57 60 63 Resp 14 18 13 B/P (MAP) 142/63 (89) 127/53 (77) 133/55 (81) Pulse Ox 97 96 96 O2 Delivery Room Air Room Air Room Air Room Air 02/18/19 02/18/19 02/18/19 02/18/19 00:00 01:00 02:00 03:00 Temp 98.1 98.1 Pulse 60 59 68 57 Resp 12 11 12 20 B/P (MAP) 113/46 (68) 117/52 (73) 100/43 (62) 119/51 (73) Pulse Ox 95 96 95 96 O2 Delivery Room Air Room Air Room Air Room Air 02/18/19 02/18/19 02/18/19 02/18/19 04:00 04:00 05:00 05:41 Temp 98.1 98.1 Pulse 58 58 57 Resp 16 14 B/P (MAP) 117/52 (73) 127/67 (87) 165/77 Pulse Ox 99 98 O2 Delivery Room Air Room Air Room Air 02/18/19 02/18/19 06:00 07:51 Pulse 54 Resp 17 B/P (MAP) 165/77 (106) Pulse Ox 97 97 O2 Delivery Room Air Room Air Intake and Output 02/17/19 02/17/19 02/18/19 15:00 23:00 07:00 Intake Total 600 ml 540 ml Output Total 0 ml Balance 600 ml 540 ml [address] HEAD WITHOUT CONTRAST, 02/17. There is a small left hemispheric subdural hematoma measuring 3 mm in thickness. Rightward midline shift measures 3 mm. Hypoattenuation within the periventricular white matter indicates mild chronic microangiopathic change. The ventricles are normal in size for patient age. The visualized paranasal sinuses appear clear. The orbits are unremarkable. The temporal bones are unremarkable. The calvarium reveals no suspicious lesions. IMPRESSION: 1. Small acute to subacute left hemispheric subdural hematoma. 3 mm rightward midline shift. CT head without contrast, 02/18 Mixed density left hemispheric subdural hematoma thickness of 3-4 mm on axial images is stable. On the coronal reconstructions of thickness is 6 mm however no coronals were acquired on the prior study for direct comparison; overall hematoma is stable based on axial imaging. In light of this there is slight improvement of the midline shift currently measuring 1 mm, previously was 2-3 mm. No new site of hemorrhage is a prior exam. No mass. No infarct. Mild generalized brain atrophy stable. Imaged orbits, mastoids and bones are unremarkable. IMPRESSION: Stable left hemispheric mixed density acute/subacute subdural hematoma. See discussion above. Carotid Doppler sonogram. HISTORY: Syncope. TECHNIQUE: Bear scale and color Doppler sonographic evaluation of the neck with spectral waveform analysis was performed and static images are submitted for review. FINDINGS: There is mild atherosclerotic plaque within the carotid bifurcations. The peak systolic velocity within the right common carotid artery is 170 cm/sec. The peak systolic velocity within the right internal carotid artery is 181 cm/sec and the end diastolic velocity within the right internal carotid artery is 28 cm/sec. The right ICA/CCA ratio is 1.1. The peak systolic velocity within the left common carotid artery is 175 cm/sec. The peak systolic velocity within the left internal carotid artery is 123 cm/sec and the end diastolic velocity within the left internal carotid artery is 20 cm/sec. The left ICA/CCA ratio is 0.7. There is normal antegrade flow within both vertebral arteries. IMPRESSION: 1. Elevated peak systolic velocity within the right ICA. Despite a normal ICA to CCA ratio, this suggests 50-69 percent stenosis. 2. Upper normal peak systolic velocity within the left ICA, suggesting near 50 percent stenosis. ABDIRIZAK FIGUEROA MD Feb 18, 2019 10:11
--- NOTE | 2019-02-18 10:23 | PDOC ---
Subjective: Subjective: Constant burning mid abd pain since Sat, some radiation to upper back. Denies reflux/heartburn, PUD history - "ulcer" listed history. No change w/ eating. Stooling without issue. On hydrocodone for chronic low back pain at home. Objective: Vital Signs: Vital Signs Date Time Temp Pulse Resp B/P (MAP) Pulse Ox O2 Delivery O2 Flow Rate FiO2 02/18/19 10:00 58 20 156/84 (108) 97 Room Air 02/18/19 08:00 98.1 98.1 02/17/19 12:13 2.0 Labs: Laboratory Tests Test 02/17/19 10:30 02/18/19 04:50 Heparin Anti-Xa Act, Unfractionated 0.46 IU/mL < 0.10 IU/mL Hemoglobin 13.6 g/dL Hematocrit 41.8 % Mean Corpuscular Hemoglobin Concent 33 g/dL Sodium Level 142 mmol/L Potassium Level 3.9 mmol/L Chloride Level 108 mmol/L Carbon Dioxide Level 26 mmol/L Anion Gap 8 Blood Urea Nitrogen 8 mg/dL Creatinine 1.1 mg/dL Estimated GFR (Cockcroft-Gault) 58.4 Glucose Level 99 mg/dL Calcium Level 8.8 mg/dL Triglycerides Level 69 mg/dL Cholesterol Level 182 mg/dL LDL Cholesterol, Calculated 112 mg/dL VLDL Cholesterol, Calculated 14 mg/dL Non-HDL Cholesterol Calculated 126 mg/dL HDL Cholesterol 56 mg/dL Cholesterol/HDL Ratio 3.3 Imaging: Abd US Findings: Multiple sonographic images of the abdomen are submitted. Exam is somewhat limited due to bowel gas. There is no abnormality of the visualized pancreas. There is segmental visualization of the inferior vena cava. No focal hepatic lesion is demonstrated. Right lobe of the liver measured 16.5 cm longitudinal. Common bile duct is somewhat prominent 0.8 cm. There is minimal echogenicity in the gallbladder lumen likely due to sludge. Gallbladder wall thickness is borderline about 0.3 cm. Right kidney measured 9.3 x 4.1 x 3.3 cm, no hydronephrosis. Impression: 1. There is minimal gallbladder sludge. There is mild dilatation of the common bile duct. Head CT IMPRESSION: Stable left hemispheric mixed density acute/subacute subdural hematoma. See discussion above. PE: GEN: NAD - sitting up in bed LUNGS: CTAB HEART: RRR ABD: mild epigastric discomfort, soft NEURO/PSYCH: A & O 3 A/P: ?TIA/syncope, small subdural hematoma, CODY Abd pain -- US w/ GB sludge, borderline CBD dilation (normal LFTs), and borderline GB wall thickness. Reviewed w/ Dr. Suarez - ask for surgery opinion. Continue PPI. KAREN ESPINO Feb 18, 2019 10:23
--- NOTE | 2019-02-18 10:36 | NUR ---
Spoke with Jeana regarding neurosurgery consult-- will see patient this afternoon between OR cases. New consult called to Dr. Varma for gall bladder sludge on CT scan.
[2019-02-18] MEDS ORDERED: DICYCLOMINE HCL 10 MG CAPSULE PO PRN (10:45)
--- NOTE | 2019-02-18 10:45 | CONS ---
DATE OF CONSULTATION: 02/18/2019 ATTENDING PHYSICIAN: Dionisio Brown DO REASON FOR CONSULTATION: The patient was seen at the request of Dr. Melendez for rehab evaluation. HISTORY OF PRESENT ILLNESS: This is a 78-year-old female admitted through the Emergency Room after a syncopal episode witnessed by her daughter. She also had associated abdominal pain when she woke, radiating to her back. She also had pain in her arms as well. She was found with low blood pressure by the Emergency Medical Service personnel. The patient was admitted for further evaluation and treatment. She was found with slightly elevated troponin. The patient with known atrial fibrillation, hypertension, hyperlipidemia, hypothyroidism, myocardial infarction, appendectomy, hysterectomy, cardiac stent, chronic lower back pain from degenerative disk disease of lumbar vertebrae. She recently is having some problem with left ring finger nail bed infection. I have seen her on an outpatient basis and she received Keflex for about 10 days. She called me last week and complained of still having the problem, so I have started her on Levaquin. The patient since admission being evaluated and treated by Cardiology, Pulmonary, Neurology, GI. The patient denies any headaches, dizziness or trouble with her bowel or bladder control or speech or cognition or numbness or weakness in her extremities. She had a CT scan of the brain done, which revealed small left hemispheric subdural hematoma measuring about 3 mm in thickness, rightward midline shift measuring about 3 mm, hypoattenuation within the periventricular white matter indicates mild chronic microangiopathic changes. The patient had followup CT scan done today, which failed to reveal any significant change. The patient is waiting for an MRI scan of her brain. Carotid Doppler studies revealed some atherosclerotic changes, elevated peak systolic velocity within the right internal carotid artery despite a normal ICA-to-CCA ratio suggesting about 50-69% stenosis, upper normal peak systolic velocity within the left internal cerebral artery suggesting 50% stenosis. PHYSICAL EXAMINATION: NEUROLOGIC: Today revealed an elderly female. She is alert, oriented to time, place, person and circumstance, follows commands appropriately, moves all 4 extremities voluntarily, where she had 4+/5 grade muscle strength. Deep tendon reflexes are decreased overall. She had equal perception of touch and pinprick sensation bilaterally. No obvious visual field cut or facial asymmetry or communication or cognitive problems. She is independent with bed mobility and transfers and up walking without any difficulty. She had some difficulty trying to walk on a straight line, one foot in front of the other. She had tenderness to palpation over sacroiliac joint area. She still had nail bed infection of her left ring finger. ASSESSMENT: Elderly female with recent-onset syncopal episode with CT scan evidence of 3 mm left hemispheric subdural hematoma. No neurological changes clinically. Chronic lower back pain from degenerative disk disease of lumbar vertebrae. Left ring finger nail bed infection, subacute. RECOMMENDATIONS: Agree with the plan for MRI scan and neurosurgical advice, home with outpatient followup when medically stable. Dr. Melendez, I appreciate asking me to participate in the care of this interesting patient. I will be glad to see her for followup with you on an as-needed basis. NATHAN WINTER MD DR: ZULMA/nts JOB#: [id number] / [id number]
--- NOTE | 2019-02-18 11:31 | PDOC ---
PULMONARY PROGRESS NOTES Subjective NO SOA Vitals Vital Signs Date Time Temp Pulse Resp B/P (MAP) Pulse Ox O2 Delivery O2 Flow Rate FiO2 02/18/19 11:00 54 22 144/71 (95) 97 Room Air 02/18/19 08:00 98.1 98.1 02/17/19 12:13 2.0 ROS: No Chest Pain, No Increase Cough General: Alert, No acute distress Lungs: Clear Cardiovascular: S1, S2 Abdomen: Soft, Non-tender Neuro Exam: Alert Extremities: No Edema Skin: Warm Labs Laboratory Tests Test 02/16/19 13:20 02/16/19 13:29 02/16/19 17:10 02/16/19 19:45 White Blood Count 10.6 x10^3/uL (4.0-11.0) Red Blood Count 5.34 x10^6/uL (3.50-5.40) Hemoglobin 15.9 g/dL (12.0-15.5) Hematocrit 48.0 % (36.0-47.0) Mean Corpuscular Volume 90 fL (79-100) Mean Corpuscular Hemoglobin 30 pg (25-35) Mean Corpuscular Hemoglobin Concent 33 g/dL (31-37) Red Cell Distribution Width 14.6 % (11.5-14.5) Platelet Count 181 x10^3/uL (140-400) Neutrophils (%) (Auto) 58 % (31-73) Lymphocytes (%) (Auto) 32 % (24-48) Monocytes (%) (Auto) 7 % (0-9) Eosinophils (%) (Auto) 3 % (0-3) Basophils (%) (Auto) 1 % (0-3) Neutrophils # (Auto) 6.1 x10^3/uL (1.8-7.7) Lymphocytes # (Auto) 3.4 x10^3/uL (1.0-4.8) Monocytes # (Auto) 0.7 x10^3/uL (0.0-1.1) Eosinophils # (Auto) 0.3 x10^3/uL (0.0-0.7) Basophils # (Auto) 0.1 x10^3/uL (0.0-0.2) Sodium Level 143 mmol/L (136-145) Potassium Level 3.8 mmol/L (3.5-5.1) Chloride Level 104 mmol/L (98-107) Carbon Dioxide Level 28 mmol/L (21-32) Anion Gap 11 (6-14) 14 mmol/L (6-14) Blood Urea Nitrogen 16 mg/dL (7-20) Creatinine 1.6 mg/dL (0.6-1.0) Estimated GFR (Cockcroft-Gault) 37.9 BUN/Creatinine Ratio 10 (6-20) Glucose Level 156 mg/dL (70-99) 152 mg/dL (70-99) Calcium Level 9.9 mg/dL (8.5-10.1) Magnesium Level 2.0 mg/dL (1.8-2.4) Total Bilirubin 0.6 mg/dL (0.2-1.0) Aspartate Amino Transf (AST/SGOT) 23 U/L (15-37) Alanine Aminotransferase (ALT/SGPT) 22 U/L (14-59) Alkaline Phosphatase 93 U/L (46-116) Troponin I Quantitative 0.061 ng/mL (0.000-0.055) 0.074 ng/mL (0.000-0.055) AO-Svv-V-Type Natriuretic Peptide 972 pg/mL (0-449) Total Protein 7.0 g/dL (6.4-8.2) Albumin 3.2 g/dL (3.4-5.0) Albumin/Globulin Ratio 0.8 (1.0-1.7) Lipase 92 U/L (73-393) Bedside Hemoglobin 17.0 g/dL (12-15) Bedside Hematocrit 50 % (36-40) Bedside Sodium 142 mmol/L (135-145) Bedside Potassium 3.8 mmol/L (3.5-5.0) Bedside Chloride 105 mmol/L (98-110) Bedside Total CO2 28 mmol/L (23-32) Bedside Blood Urea Nitrogen 19 mg/dL (8-26) Bedside Creatinine 1.5 mg/dL (0.5-1.4) Bedside Ionized Calcium (Claudia) 1.20 mmol/L (1.13-1.32) Urine Color Yellow Urine Clarity Clear Urine pH 8.5 Urine Specific [place] 1.010 Urine Protein Negative mg/dL (NEG-TRACE) Urine Glucose (UA) Negative mg/dL (NEG) Urine Ketones (Stick) Negative mg/dL (NEG) Urine Blood Negative (NEG) Urine Nitrite Negative (NEG) Urine Bilirubin Negative (NEG) Urine Urobilinogen Dipstick 0.2 mg/dL (0.2 mg/dL) Urine Leukocyte Esterase Trace (NEG) Urine RBC 0 /HPF (0-2) Urine WBC 11-20 /HPF (0-4) Urine Squamous Epithelial Cells Mod /LPF Urine Transitional Epithelial Cells Few /LPF Urine Bacteria 0 /HPF (0-FEW) Urine Hyaline Casts Many /HPF Urine Mucus Mod /LPF Test 02/16/19 21:30 02/17/19 04:30 02/17/19 10:30 02/18/19 04:50 Heparin Anti-Xa Act, Unfractionated 0.69 IU/mL (0.30-0.70) 0.45 IU/mL (0.30-0.70) 0.46 IU/mL (0.30-0.70) < 0.10 IU/mL (0.30-0.70) Troponin I Quantitative 0.089 ng/mL (0.000-0.055) White Blood Count 9.4 x10^3/uL (4.0-11.0) Red Blood Count 4.65 x10^6/uL (3.50-5.40) Hemoglobin 13.7 g/dL (12.0-15.5) 13.6 g/dL (12.0-15.5) Hematocrit 42.1 % (36.0-47.0) 41.8 % (36.0-47.0) Mean Corpuscular Volume 91 fL (79-100) Mean Corpuscular Hemoglobin 29 pg (25-35) Mean Corpuscular Hemoglobin Concent 33 g/dL (31-37) 33 g/dL (31-37) Red Cell Distribution Width 14.7 % (11.5-14.5) Platelet Count 152 x10^3/uL (140-400) Magnesium Level 2.0 mg/dL (1.8-2.4) Sodium Level 142 mmol/L (136-145) Potassium Level 3.9 mmol/L (3.5-5.1) Chloride Level 108 mmol/L (98-107) Carbon Dioxide Level 26 mmol/L (21-32) Anion Gap 8 (6-14) Blood Urea Nitrogen 8 mg/dL (7-20) Creatinine 1.1 mg/dL (0.6-1.0) Estimated GFR (Cockcroft-Gault) 58.4 Glucose Level 99 mg/dL (70-99) Calcium Level 8.8 mg/dL (8.5-10.1) Triglycerides Level 69 mg/dL (0-150) Cholesterol Level 182 mg/dL (0-200) LDL Cholesterol, Calculated 112 mg/dL (0-100) VLDL Cholesterol, Calculated 14 mg/dL (0-40) Non-HDL Cholesterol Calculated 126 mg/dL (0-129) HDL Cholesterol 56 mg/dL (40-60) Cholesterol/HDL Ratio 3.3 Laboratory Tests Test 02/18/19 04:50 Hemoglobin 13.6 g/dL (12.0-15.5) Hematocrit 41.8 % (36.0-47.0) Mean Corpuscular Hemoglobin Concent 33 g/dL (31-37) Heparin Anti-Xa Act, Unfractionated < 0.10 IU/mL (0.30-0.70) Sodium Level 142 mmol/L (136-145) Potassium Level 3.9 mmol/L (3.5-5.1) Chloride Level 108 mmol/L (98-107) Carbon Dioxide Level 26 mmol/L (21-32) Anion Gap 8 (6-14) Blood Urea Nitrogen 8 mg/dL (7-20) Creatinine 1.1 mg/dL (0.6-1.0) Estimated GFR (Cockcroft-Gault) 58.4 Glucose Level 99 mg/dL (70-99) Calcium Level 8.8 mg/dL (8.5-10.1) Triglycerides Level 69 mg/dL (0-150) Cholesterol Level 182 mg/dL (0-200) LDL Cholesterol, Calculated 112 mg/dL (0-100) VLDL Cholesterol, Calculated 14 mg/dL (0-40) Non-HDL Cholesterol Calculated 126 mg/dL (0-129) HDL Cholesterol 56 mg/dL (40-60) Cholesterol/HDL Ratio 3.3 Medications Active Scripts Medications Dose Route/Sig Max Daily Dose Days Date Category Cephalexin 500 Mg Capsule 500 Mg PO Q8HRS PRN 02/17/19 Reported Cod Liver Oil Softgel (Vit A & D3 In Cod Liver Oil) 1 Each Capsule 1 Each PO DAILY 11/19/18 Reported Women's 50 Plus Multivit Tab (Mv-Mn/Folic Acid/Calcium/Vit K) 1 Each Tablet 2 Each PO DAILY 11/19/18 Reported Vitamin D3 (Cholecalciferol (Vitamin D3)) 1,000 Unit Tablet 6,000 Unit PO DAILY 11/19/18 Reported Amlodipine Besylate 5 Mg Tablet 5 Mg PO DAILY 11/19/18 Reported Hydrocodone-Apap 5-325 (Hydrocodone Bit/Acetaminophen) 1 Each Tablet 1 Tab PO PRN Q6HRS PRN 04/15/14 Reported Aspir 81 (Aspirin) 81 Mg Tablet.dr 1 Tab PO DAILY 04/15/14 Reported Levothyroxine Sodium 100 Mcg Tablet 100 Mcg PO DAILY 08/10/13 Reported Impression . 1. Possible COPD. clinically compensated. 2. chronic bronchitis. see pulmonary at [facility] 3. Coronary artery disease. 4. Elevated troponin ? non-ST elevation myocardial infarction. 5. Epigastric pain ? gastritis versus gastroesophageal reflux disease. 6. Hypertension. 7. Acute kidney injury. 8. Ex-smoker. Plan . PLAN AND RECOMMENDATIONS: 1. Titrate FiO2 to keep O2 saturation 92%. 2. Protonix. She had a colonoscopy last year, which was normal. She had an EGD about 5 years ago, which did not show any abnormality. GI following 4. Cardiology consulted. 5. Echocardiogram per Cardiology. 6. stable pulmonary hernandez. will see JC Marshall MD Feb 18, 2019 11:31
--- NOTE | 2019-02-18 11:47 | PDOC2 ---
KATHRYN LR [employer] 02/18/19 1147: CONSULT Date of Consult Date of Consult DATE: 02/18/19 TIME: 11:39 Reason for Consult Reason for Consult: abd pain Referring Physician Referring Physician: Dr Suarez Identification/Chief Complaint Chief Complaint syncope, abd pain Source Source: Chart review, Patient History of Present Illness Reason for Visit: Admitted after a syncopal episode. She did have abdominal pain prior to this. Elevated troponin and cardiac hx, admitted and treated. Heparin drip. Noted to develop a subdural hematoma. That has improved She reports continued abdominal pain. No emesis. Pain is fairly constant currently. Burning type pain to ruq, epigastric, does radiate to her back. She had similar pain in October when admitted and underwent cardiac evaluation. It has occurred intermittently prior to that also. No aggravating or alleviating factors Past Medical History Cardiovascular: CAD, HTN, [place], Hyperlipidemia Pulmonary: Asthma CENTRAL NERVOUS SYSTEM: Other GI: GERD, Peptic Ulcer disease Heme/Onc: No pertinent hx Hepatobiliary: No pertinent hx Psych: No pertinent hx Musculoskeletal: Osteoarthritis Rheumatologic: No pertinent hx Infectious disease: No pertinent hx Renal/: No pertinent hx Endocrine: Hypothyroidism Past Surgical History Past Surgical History: Appendectomy, Other Family History Family History: Coronary Artery Disease Social History ALCOHOL: none Drugs: None Lives: Alone Domestic Violence: Neg Current Problem List Problem List Problems Medical Problems: (1) Acute kidney injury Status: Acute (2) Atypical chest pain Status: Acute (3) Elevated troponin I level Status: Acute (4) Syncope Status: Acute Current Medications Current Medications Current Medications Morphine Sulfate (Morphine Sulfate) 4 mg PRN Q15MIN PRN IV/SQ PAIN GREATER THAN 3/10 Last administered on 02/16/19at 15:05; Start 02/16/19 at 13:30; Stop 02/17/19 at 07:10; Status DC Sodium Chloride 1,000 ml @ 125 mls/hr 1X ONCE IV Last administered on 02/16at 13:54; Start 02/16/19 at 14:00; Stop 02/16/19 at 21:59; Status DC Heparin Sodium (Porcine) (Heparin Sodium) 4,000 unit 1X ONCE IV Last administered on 02/16/19at 15:11; Start 02/16/19 at 15:15; Stop 02/16/19 at 15:16; Status DC Heparin Sodium/ Dextrose 500 ml @ 0 mls/hr CONT PRN IV PER PROTOCOL Last administered on 02/16/19at 15:16; Start 02/16/19 at 15:30; Stop 02/17/19 at 17:17; Status DC Heparin Sodium (Porcine) (Heparin Sodium) 1,950 unit PRN Q6HRS PRN IV FOR UFH LEVEL LESS THAN 0.2; Start 02/16/19 at 15:30; Stop 02/17/19 at 17:17; Status DC Ondansetron HCl (Zofran) 4 mg PRN Q8HRS PRN IV NAUSEA/VOMITING; Start 02/16/19 at 15:45; Stop 02/17/19 at 08:40; Status DC Morphine Sulfate (Morphine Sulfate) 4 mg PRN Q2HR PRN IV PAIN Last administered on 02/17/19at 11:43; Start 02/16/19 at 15:45; Stop 02/17/19 at 15:44; Status DC Sodium Chloride 1,000 ml @ 125 mls/hr Q8H IV Last administered on 02/17/19at 06:52; Start 02/16/19 at 15:31; Stop 02/17/19 at 15:30; Status DC Ceftriaxone Sodium (Rocephin) 1 gm Q24H IVP Last administered on 02/17/19at 20:29; Start 02/16/19 at 20:00 Amlodipine Besylate (Norvasc) 5 mg DAILY PO Last administered on 02/18/19 09:25; Start 02/17/19 at 09:00 Aspirin (Ecotrin) 81 mg DAILY PO Last administered on 02/17/19 09:29; Start 02/17/19 at 09:00; Stop 02/17/19 at 17:17; Status DC Vitamin D (Vitamin D3) 6,000 unit DAILY PO Last administered on 02/18/19 09:24; Start 02/17/19 at 09:00 Acetaminophen/ Hydrocodone Bitart (Lortab 5/325) 1 tab PRN Q6HRS PRN PO MODERATE PAIN, SEVERE PAIN Last administered on 02/18/19 09:29; Start 02/16/19 at 19:30 Levothyroxine Sodium (Synthroid) 100 mcg DAILY07 PO Last administered on 02/18/19 06:43; Start 02/17/19 at 07:00 Multivitamins (Thera M Plus) 1 tab DAILY PO Last administered on 02/18/19 09:24; Start 02/17/19 at 09:00 Non-Formulary Medication (Vit A & D3 In Cod Liver Oil (Cod Liver Oil Softgel)) 1 each DAILY PO ; Start 02/17/19 at 09:00; Status UNV Diphenhydramine HCl (Benadryl) 25 mg PRN QHS PRN PO INSOMNIA; Start 02/16/19 at 21:15 Pantoprazole Sodium (Protonix) 40 mg DAILYAC PO Last administered on 02/18/19 09:25; Start 02/17/19 at 07:30 Albuterol/ Ipratropium (Duoneb) 3 ml RTQID NEB Last administered on 02/18/19at 07:48; Start 02/17/19 at 08:00 Ondansetron HCl (Zofran) 4 mg PRN Q6HRS PRN IV NAUSEA/VOMITING; Start 02/17/19 at 08:45 Benzonatate (Tessalon Perle) 100 mg BFW458 PO ; Start 02/17/19 at 09:00 Guaifenesin (Robitussin Dm) 10 ml PRN Q6HRS PRN PO COUGH; Start 02/17/19 at 08:45 Tramadol HCl (Ultram) 50 mg PRN Q6HRS PRN PO MILD PAIN 1-3; Start 02/17/19 at 08:45 Calcium Carbonate/ Glycine (Tums) 500 mg PRN AFTMEALHC PRN PO INDIGESTION Last administered on 02/17/19at 11:56; Start 02/17/19 at 08:45 Temazepam (Restoril) 7.5 mg PRN QHS PRN PO INSOMNIA Last administered on 02/17/19at 21:22; Start 02/17/19 at 08:45 Nitroglycerin (Nitrostat) 0.4 mg PRN Q5MIN PRN SL CHEST PAIN Last administered on 02/17/19at 11:58; Start 02/17/19 at 12:00 Lactobacillus Rhamnosus (Culturelle) 1 cap BID PO Last administered on 02/18/19at 09:24; Start 02/17/19 at 21:00 Labetalol HCl (Normodyne Iv Push) 20 mg 1X ONCE IVP Last administered on 02/17/19at 18:40; Start 02/17/19 at 18:15; Stop 02/17/19 at 18:16; Status DC Labetalol HCl (Normodyne Iv Push) 20 mg PRN Q2HR PRN IVP HYPERTENSION Last administered on 02/18/19at 05:41; Start 02/17/19 at 18:15 Nicardipine HCl 50 mg/Sodium Chloride 250 ml @ 25 mls/hr CONT PRN IV SEE I/O RECORD; Start 02/17/19 at 18:15 Dicyclomine HCl (Bentyl) 10 mg PRN TID PRN PO STOMACH CRAMPING; Start 02/18/19 at 10:45 Active Scripts Active Reported Cephalexin 500 Mg Capsule 500 Mg PO Q8HRS PRN Cod Liver Oil Softgel (Vit A & D3 In Cod Liver Oil) 1 Each Capsule 1 Each PO DAILY Women's 50 Plus Multivit Tab (Mv-Mn/Folic Acid/Calcium/Vit K) 1 Each Tablet 2 Each PO DAILY Vitamin D3 (Cholecalciferol (Vitamin D3)) 1,000 Unit Tablet 6,000 Unit PO DAILY Amlodipine Besylate 5 Mg Tablet 5 Mg PO DAILY Hydrocodone-Apap 5-325 (Hydrocodone Bit/Acetaminophen) 1 Each Tablet 1 Tab PO PRN Q6HRS PRN Aspir 81 (Aspirin) 81 Mg Tablet. 1 Tab PO DAILY Levothyroxine Sodium 100 Mcg Tablet 100 Mcg PO DAILY Allergies Allergies: Coded Allergies: codeine (Verified Allergy, Intermediate, 08/08/13) PER PATIENT "DROPS BLOOD PRESSURE" egg (Verified Allergy, Intermediate, 11/20/18) ROS General: No: Chills, Other (fevers ) PSYCHOLOGICAL ROS: No: Anxiety, Depression Eyes: No Blurry vision, No Double vision HEENT: No: Heacaches, Sore Throat Hematological and Lymphatic: YES: Bleeding Problems; No: Blood Clots Respiratory: No: Cough, Shortness of breath Cardiovascular: No Chest Pain, No Palpitations Gastrointestinal: Yes Other (see hpi) Genitourinary: No Dysuria, No Retention Musculoskeletal: No Joint Pain, No Muscle Pain Neurological: Yes Impaired Coord/balance; No Numbness/Tingling Skin: No Pruritus, No Rash Physical Exam General: Alert, Oriented X3, Cooperative HEENT: Atraumatic, PERRLA Lungs: Clear to auscultation, Normal air movement Heart: Regular rate, Normal S1, Normal S2 Abdomen: Soft, Other (ttp RUQ) Extremities: No clubbing, No cyanosis Skin: No rashes, No breakdown Neuro: Normal speech, Sensation intact Psych/Mental Status: Mental status NL, Mood NL MUSCULOSKELETAL: No deformity, No swelling Vitals VITALS Vital Signs Date Time Temp Pulse Resp B/P (MAP) Pulse Ox O2 Delivery O2 Flow Rate FiO2 02/18/19 11:00 54 22 144/71 (95) 97 Room Air 02/18/19 08:00 98.1 98.1 02/17/19 12:13 2.0 Labs Labs Laboratory Tests Test 02/16/19 13:20 02/16/19 13:29 02/16/19 17:10 02/16/19 19:45 White Blood Count 10.6 x10^3/uL (4.0-11.0) Red Blood Count 5.34 x10^6/uL (3.50-5.40) Hemoglobin 15.9 g/dL (12.0-15.5) Hematocrit 48.0 % (36.0-47.0) Mean Corpuscular Volume 90 fL (79-100) Mean Corpuscular Hemoglobin 30 pg (25-35) Mean Corpuscular Hemoglobin Concent 33 g/dL (31-37) Red Cell Distribution Width 14.6 % (11.5-14.5) Platelet Count 181 x10^3/uL (140-400) Neutrophils (%) (Auto) 58 % (31-73) Lymphocytes (%) (Auto) 32 % (24-48) Monocytes (%) (Auto) 7 % (0-9) Eosinophils (%) (Auto) 3 % (0-3) Basophils (%) (Auto) 1 % (0-3) Neutrophils # (Auto) 6.1 x10^3/uL (1.8-7.7) Lymphocytes # (Auto) 3.4 x10^3/uL (1.0-4.8) Monocytes # (Auto) 0.7 x10^3/uL (0.0-1.1) Eosinophils # (Auto) 0.3 x10^3/uL (0.0-0.7) Basophils # (Auto) 0.1 x10^3/uL (0.0-0.2) Sodium Level 143 mmol/L (136-145) Potassium Level 3.8 mmol/L (3.5-5.1) Chloride Level 104 mmol/L (98-107) Carbon Dioxide Level 28 mmol/L (21-32) Anion Gap 11 (6-14) 14 mmol/L (6-14) Blood Urea Nitrogen 16 mg/dL (7-20) Creatinine 1.6 mg/dL (0.6-1.0) Estimated GFR (Cockcroft-Gault) 37.9 BUN/Creatinine Ratio 10 (6-20) Glucose Level 156 mg/dL (70-99) 152 mg/dL (70-99) Calcium Level 9.9 mg/dL (8.5-10.1) Magnesium Level 2.0 mg/dL (1.8-2.4) Total Bilirubin 0.6 mg/dL (0.2-1.0) Aspartate Amino Transf (AST/SGOT) 23 U/L (15-37) Alanine Aminotransferase (ALT/SGPT) 22 U/L (14-59) Alkaline Phosphatase 93 U/L (46-116) Troponin I Quantitative 0.061 ng/mL (0.000-0.055) 0.074 ng/mL (0.000-0.055) SM-Gcs-V-Type Natriuretic Peptide 972 pg/mL (0-449) Total Protein 7.0 g/dL (6.4-8.2) Albumin 3.2 g/dL (3.4-5.0) Albumin/Globulin Ratio 0.8 (1.0-1.7) Lipase 92 U/L (73-393) Bedside Hemoglobin 17.0 g/dL (12-15) Bedside Hematocrit 50 % (36-40) Bedside Sodium 142 mmol/L (135-145) Bedside Potassium 3.8 mmol/L (3.5-5.0) Bedside Chloride 105 mmol/L (98-110) Bedside Total CO2 28 mmol/L (23-32) Bedside Blood Urea Nitrogen 19 mg/dL (8-26) Bedside Creatinine 1.5 mg/dL (0.5-1.4) Bedside Ionized Calcium (Claudia) 1.20 mmol/L (1.13-1.32) Urine Color Yellow Urine Clarity Clear Urine pH 8.5 Urine Specific [place] 1.010 Urine Protein Negative mg/dL (NEG-TRACE) Urine Glucose (UA) Negative mg/dL (NEG) Urine Ketones (Stick) Negative mg/dL (NEG) Urine Blood Negative (NEG) Urine Nitrite Negative (NEG) Urine Bilirubin Negative (NEG) Urine Urobilinogen Dipstick 0.2 mg/dL (0.2 mg/dL) Urine Leukocyte Esterase Trace (NEG) Urine RBC 0 /HPF (0-2) Urine WBC 11-20 /HPF (0-4) Urine Squamous Epithelial Cells Mod /LPF Urine Transitional Epithelial Cells Few /LPF Urine Bacteria 0 /HPF (0-FEW) Urine Hyaline Casts Many /HPF Urine Mucus Mod /LPF Test 02/16/19 21:30 02/17/19 04:30 02/17/19 10:30 02/18/19 04:50 Heparin Anti-Xa Act, Unfractionated 0.69 IU/mL (0.30-0.70) 0.45 IU/mL (0.30-0.70) 0.46 IU/mL (0.30-0.70) < 0.10 IU/mL (0.30-0.70) Troponin I Quantitative 0.089 ng/mL (0.000-0.055) White Blood Count 9.4 x10^3/uL (4.0-11.0) Red Blood Count 4.65 x10^6/uL (3.50-5.40) Hemoglobin 13.7 g/dL (12.0-15.5) 13.6 g/dL (12.0-15.5) Hematocrit 42.1 % (36.0-47.0) 41.8 % (36.0-47.0) Mean Corpuscular Volume 91 fL (79-100) Mean Corpuscular Hemoglobin 29 pg (25-35) Mean Corpuscular Hemoglobin Concent 33 g/dL (31-37) 33 g/dL (31-37) Red Cell Distribution Width 14.7 % (11.5-14.5) Platelet Count 152 x10^3/uL (140-400) Magnesium Level 2.0 mg/dL (1.8-2.4) Sodium Level 142 mmol/L (136-145) Potassium Level 3.9 mmol/L (3.5-5.1) Chloride Level 108 mmol/L (98-107) Carbon Dioxide Level 26 mmol/L (21-32) Anion Gap 8 (6-14) Blood Urea Nitrogen 8 mg/dL (7-20) Creatinine 1.1 mg/dL (0.6-1.0) Estimated GFR (Cockcroft-Gault) 58.4 Glucose Level 99 mg/dL (70-99) Calcium Level 8.8 mg/dL (8.5-10.1) Triglycerides Level 69 mg/dL (0-150) Cholesterol Level 182 mg/dL (0-200) LDL Cholesterol, Calculated 112 mg/dL (0-100) VLDL Cholesterol, Calculated 14 mg/dL (0-40) Non-HDL Cholesterol Calculated 126 mg/dL (0-129) HDL Cholesterol 56 mg/dL (40-60) Cholesterol/HDL Ratio 3.3 Laboratory Tests Test 02/18/19 04:50 Hemoglobin 13.6 g/dL (12.0-15.5) Hematocrit 41.8 % (36.0-47.0) Mean Corpuscular Hemoglobin Concent 33 g/dL (31-37) Heparin Anti-Xa Act, Unfractionated < 0.10 IU/mL (0.30-0.70) Sodium Level 142 mmol/L (136-145) Potassium Level 3.9 mmol/L (3.5-5.1) Chloride Level 108 mmol/L (98-107) Carbon Dioxide Level 26 mmol/L (21-32) Anion Gap 8 (6-14) Blood Urea Nitrogen 8 mg/dL (7-20) Creatinine 1.1 mg/dL (0.6-1.0) Estimated GFR (Cockcroft-Gault) 58.4 Glucose Level 99 mg/dL (70-99) Calcium Level 8.8 mg/dL (8.5-10.1) Triglycerides Level 69 mg/dL (0-150) Cholesterol Level 182 mg/dL (0-200) LDL Cholesterol, Calculated 112 mg/dL (0-100) VLDL Cholesterol, Calculated 14 mg/dL (0-40) Non-HDL Cholesterol Calculated 126 mg/dL (0-129) HDL Cholesterol 56 mg/dL (40-60) Cholesterol/HDL Ratio 3.3 Assessment/Plan Assessment/Plan abdominal pain--US with minimal GB sludge--will check HIDA ongoing medical management for subdural hematoma, cardiac issues CITLALLI BILLINGSLEY MD 02/18/19 1300: CONSULT Assessment/Plan Assessment/Plan Reviewed, agree with above KATHRYN LR APRN Feb 18, 2019 11:47 CITLALLI BILLINGSLEY MD Feb 18, 2019 13:00
--- NOTE | 2019-02-18 11:52 | PDOC ---
Provider Note Provider Note Patient seen and examined consulted for SDH s/p syncopal event no complaints neuro intact CT with eft hemispheric mixed density acute/subacute subdural hematoma will need f/u CT head in a week DONIS CLEANING MD Feb 18, 2019 11:52
[2019-02-18] MEDS ORDERED: SINCALIDE 1.6 MCG in IV NORMAL SALINE 50ML 30 ML IV ONE (14:30)
--- NOTE | 2019-02-18 14:33 | NUR ---
SS following for discharge planning. SS reviewed pt chart. Pt is from home and is currently on room air. PT/OT ordered. SS will continue to follow for discharge planning.
--- NOTE | 2019-02-18 15:20 | RAD ---
EXAM: HEPATOBILIARY SCINTIGRAPHY WITH GALLBLADDER EJECTION FRACTION CALCULATION. HISTORY: Abdominal pain/nausea. TECHNIQUE: 5.5 mCi technetium-99m Choletec were administered intravenously and scintigraphic images of the abdomen obtained. After filling of the gallbladder, 1.6 mcg of sincalide were infused and the gallbladder ejection fraction calculated. FINDINGS: There is prompt hepatic clearance of tracer from the blood pool. There is homogeneous distribution throughout the liver. There is normal filling of the gallbladder and clearance into the biliary tree and small bowel. The gallbladder ejection fraction is 76% (normal >35%). IMPRESSION: 1. Normal gallbladder ejection fraction. Electronically signed by: Stephany Be MD (02/18/2019 3:16 PM) [facility]
[2019-02-18] MEDS: cefTRIAXone IV Push 1 GM VIAL. IVP SCH (20:00)
[2019-02-18] MEDS: TEMAZEPAM 7.5 MG CAPSULE PO PRN (20:15)
[2019-02-18] MEDS: traMADol 50 MG TABLET PO PRN (20:20)
[2019-02-19 03:51] VITALS: BP 150/59
[2019-02-19 04:26] LABS: HEMATOCRIT 41.2 % (36.0-47.0); HEMOGLOBIN 13.4 g/dL (12.0-15.5); RED BLOOD COUNT 4.57 x10^6/uL (3.50-5.40); RED CELL DISTRIBUTION WIDTH 14.7 % (11.5-14.5); WHITE BLOOD COUNT 8.5 x10^3/uL (4.0-11.0)
[2019-02-19 07:00] VITALS: BP 88/65
[2019-02-19] MEDS: IPRATRPIUM/ALBUTEROL 0.5/2.5MG 3 ML NEBU. NEB SCH ×4 (07:25→19:36)
[2019-02-19] MEDS: PANTOPRAZOLE 40 MG TABLET.DR. PO SCH (08:12)
[2019-02-19] MEDS: BENZONATATE 100 MG CAPSULE. PO SCH ×2 (08:12→14:00)
[2019-02-19] MEDS: LEVOTHYROXINE 100 MCG TABLET PO SCH ×2 (08:12→11:07)
[2019-02-19] MEDS: MULTIVITAMIN with MINERAL TABLET. PO SCH (08:12)
[2019-02-19] MEDS: LACTOBACILLUS RHAMNOSUS GG 1 CAPSULE. PO SCH ×2 (08:14→21:33)
[2019-02-19] MEDS: amLODIPine BESYLATE 5 MG TABLET PO SCH (08:14)
--- NOTE | 2019-02-19 08:21 | PDOC ---
PROGRESS NOTES Chief Complaint Chief Complaint IMPRESSION Transient Slurred speech Acute to subacute left hemispheric subdural hematoma. 3 mm rightward midline shift. Trop elev x 3 (o.06, 0.0.7, 0.08) - no CP CAD with 1 stent on ASA 81 and compliant COPD Ex smoker, quit 10 yrs, 30 pack yrs Left arm pain since oct 2018, left wrist pain - follows with Dr Bardales, unrecalled recent abx Left second digit wound and swelling - wound care, on unrecalled abx currently Abd pain since october, burning, neg CT Right internal carotid artery 50-69 percent stenosis, left internal carotid artery 50 percent stenosis. US with minimal sludge, EF 76%, did have reproduction of symptoms Normal gallbladder ejection fraction. Neurosurgery recommends followup CT 1 week 36 MIN PT EXAM, CHART REVIEW, > 50% OF TIME SPENT WITH EXAM, CHART REVIEW, PT CARE COORDINATION History of Present Illness History of Present Illness NO CP, initially on heparin gtt per cards bec of elev trop x 3, rather mild. Stopped 2/2 subdural hematoma noted on 02/17/19. Transferred to ICU for further care. Left second digit paronychia - on abx per physiatry seen as OP, abd pain,s econd admission for the same with neg CT - consulted GI, COPD - pulmo on board, left wrist/arm pain, started Oct 2018 when she had LCH through [facility] - sees neurology outpatient Slept ok last night, no new complaints. CT head with mild interval improvement in midline shift. Our MRI is down currently. Awaiting Neurosurgery evaluation. Plan: Neurosurgery consultation Add physiatry consult for the left wrist arm pain Add GI consult for that abd pain with neg CT - she describes as burning, never has seen GI Wound care to see left finger Vitals Vitals Vital Signs Date Time Temp Pulse Resp B/P (MAP) Pulse Ox O2 Delivery O2 Flow Rate FiO2 02/19/19 08:14 67 126/53 02/19/19 07:26 98 Room Air 02/19/19 03:51 98.2 18 98.2 Physical Exam General: Alert, Oriented X3, Cooperative Heart: Regular rate, Normal S1, Normal S2 Lungs: Clear Abdomen: Normal bowel sounds, Soft, Other (ttp RUQ) Extremities: No clubbing, No cyanosis Skin: No rashes, No breakdown Labs LABS MRI Brain with and without contrast History: Subdural hematoma Technique: Multiplanar, multi sequential pre and postcontrast MR imaging was performed of the brain. Comparison: February 18, 2019 CT head exam Findings: There is again subdural hematoma along the left lateral convexity greatest transverse thickness about 0.9 cm in the left parietal region. This is internally hyperintense on the FLAIR sequence and somewhat hyperintense on the T1 sequence. There is no significant midline shift. There is no nodular parenchymal or leptomeningeal enhancement. There is degree of diffuse enhancement associated with the subdural hematoma. Ventricular size is within normal limits. There is mild to moderate supratentorial atrophy. There is scattered overall mild T2 and FLAIR hyperintense signal abnormality of the supratentorial parenchyma bilaterally. There is no evidence of recent infarct. There is preservation of the major arterial intracranial flow voids the skull base. There is mild fluid of the bilateral mastoid air cells. There is very minimal bilateral ethmoid air cell mucosal thickening. Cerebellar tonsils are normal in location. There is degenerative disc disease of visualized cervical spine. There is no abnormality of pineal gland or pituitary gland. There is preserved marrow signal of the clivus. Impression: 1. As seen on CT, there is acute/early subacute subdural hematoma along the left lateral convexity, similar in size comparing with CT. There is associated degree of nonspecific diffuse enhancement although no nodular enhancement identified. There is no midline shift. 2. There is generalized supratentorial atrophy. 3. There is overall mild T2 and FLAIR hyperintense signal abnormality of the supratentorial parenchyma bilaterally, nonspecific findings probably due to chronic microvascular ischemic disease in a patient of this age. Electronically signed by: Aly Leung MD (02/19/2019 10:35 AM) [facility] STATUS: ADM IN ORD. PHYSICIAN: KATHRYN LR APRN REASON: Abd pain. Pt had breakfast PROCEDURE: NM HEPATOBILIARY SCAN W PHARM EXAM: HEPATOBILIARY SCINTIGRAPHY WITH GALLBLADDER EJECTION FRACTION CALCULATION. HISTORY: Abdominal pain/nausea. TECHNIQUE: 5.5 mCi technetium-99m Choletec were administered intravenously and scintigraphic images of the abdomen obtained. After filling of the gallbladder, 1.6 mcg of sincalide were infused and the gallbladder ejection fraction calculated. FINDINGS: There is prompt hepatic clearance of tracer from the blood pool. There is homogeneous distribution throughout the liver. There is normal filling of the gallbladder and clearance into the biliary tree and small bowel. The gallbladder ejection fraction is 76% (normal >35%). IMPRESSION: 1. Normal gallbladder ejection fraction. Electronically signed by: Stephany Be MD (02/18/2019 3:16 PM) [facility] DICTATED and SIGNED BY: BUD BE MD DATE: 02/18/19 1516 Laboratory Tests Test 02/19/19 03:05 White Blood Count 8.5 x10^3/uL (4.0-11.0) Red Blood Count 4.57 x10^6/uL (3.50-5.40) Hemoglobin 13.4 g/dL (12.0-15.5) Hematocrit 41.2 % (36.0-47.0) Mean Corpuscular Volume 90 fL (79-100) Mean Corpuscular Hemoglobin 29 pg (25-35) Mean Corpuscular Hemoglobin Concent 33 g/dL (31-37) Red Cell Distribution Width 14.7 % (11.5-14.5) Platelet Count 141 x10^3/uL (140-400) Assessment and Plan Assessmemt and Plan Problems Medical Problems: (1) Acute kidney injury Status: Acute (2) Atypical chest pain Status: Acute (3) Elevated troponin I level Status: Acute (4) Syncope Status: Acute (4) Syncope Status: Acute Usual Living Arrangement * Alone Home Environment Type * House ADL Assistance Required Prior to Admission * Independent Mobility Assistance Required Prior to Admission * Independent Mobility devices used prior to admission * No Device Level of Consciousness * Alert Oriented to: * Person * Place * Time * Situation Follows Direction * Complex Behavior * Cooperative Range of Motion * LEs WNL Strength * LEs grossly 4+/5 Sitting Balance * 5 moves >2" all planes Standing Balance * 5 moves >2" all planes Objective Measures Comment * 3/3 with peripheral vision testing Pain Score * 0 Pain Scale Type * Descriptive Supine to Sit Assistance Required * Independent Transfer Assistance Required * Independent Transfer Type * Stand-Step Ambulation Assistance Required * Independent Ambulation Assistive Device * No Device Ambulation Distance * >150 Ft Ambulation Comments * No loss of balance backing, turning, walking normal pace. deviates from line during full tandem but demonstrates effective and timely steping strategy. Pt states feels safe walking independently. Other Information * I encouraged pt to continue to take walks and challenge her balance with things like head turns, tandem and unilateral stance Clinical Presentation * Stable Evaluation Complexity Level * Low Complexity Pt/caregiver agrees with plan of care/goals * Yes Patient condition at conclusion of therapy * Pt in bed * Call light in reach * Phone in reach * PtIn no apparent distress * Pt denies further needs * Visitor with patient No Further Skilled P.T. Intervention Required * Eval only-No PT Needs Discharge Recommendations * Home independent Discharge Recommendation - DME * None Comment Review of Relevant I have reviewed the following items tigre (where applicable) has been applied. Labs Laboratory Tests Test 02/17/19 10:30 02/18/19 04:50 02/19/19 03:05 Heparin Anti-Xa Act, Unfractionated 0.46 IU/mL (0.30-0.70) < 0.10 IU/mL (0.30-0.70) Hemoglobin 13.6 g/dL (12.0-15.5) 13.4 g/dL (12.0-15.5) Hematocrit 41.8 % (36.0-47.0) 41.2 % (36.0-47.0) Mean Corpuscular Hemoglobin Concent 33 g/dL (31-37) 33 g/dL (31-37) Sodium Level 142 mmol/L (136-145) Potassium Level 3.9 mmol/L (3.5-5.1) Chloride Level 108 mmol/L (98-107) Carbon Dioxide Level 26 mmol/L (21-32) Anion Gap 8 (6-14) Blood Urea Nitrogen 8 mg/dL (7-20) Creatinine 1.1 mg/dL (0.6-1.0) Estimated GFR (Cockcroft-Gault) 58.4 Glucose Level 99 mg/dL (70-99) Calcium Level 8.8 mg/dL (8.5-10.1) Triglycerides Level 69 mg/dL (0-150) Cholesterol Level 182 mg/dL (0-200) LDL Cholesterol, Calculated 112 mg/dL (0-100) VLDL Cholesterol, Calculated 14 mg/dL (0-40) Non-HDL Cholesterol Calculated 126 mg/dL (0-129) HDL Cholesterol 56 mg/dL (40-60) Cholesterol/HDL Ratio 3.3 White Blood Count 8.5 x10^3/uL (4.0-11.0) Red Blood Count 4.57 x10^6/uL (3.50-5.40) Mean Corpuscular Volume 90 fL (79-100) Mean Corpuscular Hemoglobin 29 pg (25-35) Red Cell Distribution Width 14.7 % (11.5-14.5) Platelet Count 141 x10^3/uL (140-400) Laboratory Tests Test 02/19/19 03:05 White Blood Count 8.5 x10^3/uL (4.0-11.0) Red Blood Count 4.57 x10^6/uL (3.50-5.40) Hemoglobin 13.4 g/dL (12.0-15.5) Hematocrit 41.2 % (36.0-47.0) Mean Corpuscular Volume 90 fL (79-100) Mean Corpuscular Hemoglobin 29 pg (25-35) Mean Corpuscular Hemoglobin Concent 33 g/dL (31-37) Red Cell Distribution Width 14.7 % (11.5-14.5) Platelet Count 141 x10^3/uL (140-400) Medications Current Medications Morphine Sulfate (Morphine Sulfate) 4 mg PRN Q15MIN PRN IV/SQ PAIN GREATER THAN 3/10 Last administered on 02/16/19at 15:05; Start 02/16/19 at 13:30; Stop 02/17/19 at 07:10; Status DC Sodium Chloride 1,000 ml @ 125 mls/hr 1X ONCE IV Last administered on 02/16/19at 13:54; Start 02/16/19 at 14:00; Stop 02/16/19 at 21:59; Status DC Heparin Sodium (Porcine) (Heparin Sodium) 4,000 unit 1X ONCE IV Last administered on 02/16/19at 15:11; Start 02/16/19 at 15:15; Stop 02/16/19 at 15:16; Status DC Heparin Sodium/ Dextrose 500 ml @ 0 mls/hr CONT PRN IV PER PROTOCOL Last administered on 02/16/19at 15:16; Start 02/16/19 at 15:30; Stop 02/17/19 at 17:17; Status DC Heparin Sodium (Porcine) (Heparin Sodium) 1,950 unit PRN Q6HRS PRN IV FOR UFH LEVEL LESS THAN 0.2; Start 02/16/19 at 15:30; Stop 02/17/19 at 17:17; Status DC Ondansetron HCl (Zofran) 4 mg PRN Q8HRS PRN IV NAUSEA/VOMITING; Start 02/16/19 at 15:45; Stop 02/17/19 at 08:40; Status DC Morphine Sulfate (Morphine Sulfate) 4 mg PRN Q2HR PRN IV PAIN Last administered on 02/17/19 11:43; Start 02/16/19 at 15:45; Stop 02/17/19 at 15:44; Status DC Sodium Chloride 1,000 ml @ 125 mls/hr Q8H IV Last administered on 02/17/19 06:52; Start 02/16/19 at 15:31; Stop 02/17/19 at 15:30; Status DC Ceftriaxone Sodium (Rocephin) 1 gm Q24H IVP Last administered on 02/17/19 20:29; Start 02/16/19 at 20:00 Amlodipine Besylate (Norvasc) 5 mg DAILY PO Last administered on 02/19/19 08:14; Start 02/17/19 at 09:00 Aspirin (Ecotrin) 81 mg DAILY PO Last administered on 02/17/19 09:29; Start 02/17/19 at 09:00; Stop 02/17/19 at 17:17; Status DC Vitamin D (Vitamin D3) 6,000 unit DAILY PO Last administered on 02/18/19 09:24; Start 02/17/19 at 09:00 Acetaminophen/ Hydrocodone Bitart (Lortab 5/325) 1 tab PRN Q6HRS PRN PO MODERATE PAIN, SEVERE PAIN Last administered on 02/18/19 09:29; Start 02/16/19 at 19:30 Levothyroxine Sodium (Synthroid) 100 mcg DAILY07 PO Last administered on 02/19/19 08:12; Start 02/17/19 at 07:00 Multivitamins (Thera M Plus) 1 tab DAILY PO Last administered on 02/19/19 08:12; Start 02/17/19 at 09:00 Non-Formulary Medication (Vit A & D3 In Cod Liver Oil (Cod Liver Oil Softgel)) 1 each DAILY PO ; Start 02/17/19 at 09:00; Status UNV Diphenhydramine HCl (Benadryl) 25 mg PRN QHS PRN PO INSOMNIA; Start 02/16/19 at 21:15 Pantoprazole Sodium (Protonix) 40 mg DAILYAC PO Last administered on 02/19/19 08:12; Start 02/17/19 at 07:30 Albuterol/ Ipratropium (Duoneb) 3 ml RTQID NEB Last administered on 02/19/19 07:25; Start 02/17/19 at 08:00 Ondansetron HCl (Zofran) 4 mg PRN Q6HRS PRN IV NAUSEA/VOMITING; Start 02/17/19 at 08:45 Benzonatate (Tessalon Perle) 100 mg [id number] PO Last administered on 02/19/19 08:12; Start 02/17/19 at 09:00 Guaifenesin (Robitussin Dm) 10 ml PRN Q6HRS PRN PO COUGH; Start 02/17/19 at 08:45 Tramadol HCl (Ultram) 50 mg PRN Q6HRS PRN PO MILD PAIN 1-3 Last administered on 02/18/19 20:20; Start 02/17/19 at 08:45 Calcium Carbonate/ Glycine (Tums) 500 mg PRN AFTMEALHC PRN PO INDIGESTION Last administered on 02/17/19 11:56; Start 02/17/19 at 08:45 Temazepam (Restoril) 7.5 mg PRN QHS PRN PO INSOMNIA Last administered on 02/18/19 20:15; Start 02/17/19 at 08:45 Nitroglycerin (Nitrostat) 0.4 mg PRN Q5MIN PRN SL CHEST PAIN Last administered on 02/17/19 11:58; Start 02/17/19 at 12:00 Lactobacillus Rhamnosus (Culturelle) 1 cap BID PO Last administered on 02/18/19 20:15; Start 02/17/19 at 21:00 Labetalol HCl (Normodyne Iv Push) 20 mg 1X ONCE IVP Last administered on 02/17/19 18:40; Start 02/17/19 at 18:15; Stop 02/17/19 at 18:16; Status DC Labetalol HCl (Normodyne Iv Push) 20 mg PRN Q2HR PRN IVP HYPERTENSION Last administered on 11/25/19at 05:41; Start 02/17/19 at 18:15 Nicardipine HCl 50 mg/Sodium Chloride 250 ml @ 25 mls/hr CONT PRN IV SEE I/O RECORD; Start 02/17/19 at 18:15 Dicyclomine HCl (Bentyl) 10 mg PRN TID PRN PO STOMACH CRAMPING; Start 02/18/19 at 10:45 Sincalide 1.6 mcg/ Sodium Chloride 30 ml @ 120 mls/hr 1X ONCE IV Last administered on 02/18/19at 14:31; Start 02/18/19 at 14:30; Stop 02/18/19 at 14:44; Status DC Active Scripts Active Reported Cephalexin 500 Mg Capsule 500 Mg PO Q8HRS PRN Cod Liver Oil Softgel (Vit A & D3 In Cod Liver Oil) 1 Each Capsule 1 Each PO DAILY Women's 50 Plus Multivit Tab (Mv-Mn/Folic Acid/Calcium/Vit K) 1 Each Tablet 2 Each PO DAILY Vitamin D3 (Cholecalciferol (Vitamin D3)) 1,000 Unit Tablet 6,000 Unit PO DAILY Amlodipine Besylate 5 Mg Tablet 5 Mg PO DAILY Hydrocodone-Apap 5-325 (Hydrocodone Bit/Acetaminophen) 1 Each Tablet 1 Tab PO PRN Q6HRS PRN Aspir 81 (Aspirin) 81 Mg Tablet. 1 Tab PO DAILY Levothyroxine Sodium 100 Mcg Tablet 100 Mcg PO DAILY Vitals/I & O Vital Sign - Last 24 Hours 02/18/19 02/18/19 02/18/19 02/18/19 09:00 09:25 09:29 10:00 Pulse 59 65 58 Resp 20 20 20 B/P (MAP) 146/86 (106) 127/71 156/84 (108) Pulse Ox 97 98 97 O2 Delivery Room Air Room Air Room Air 02/18/19 02/18/19 02/18/19 02/18/19 11:00 11:46 12:00 16:58 Temp 98.2 98.2 Pulse 54 53 Resp 22 20 B/P (MAP) 144/71 (95) 127/64 (85) Pulse Ox 97 97 100 97 O2 Delivery Room Air Room Air Room Air Room Air 02/18/19 02/18/19 02/18/19 02/18/19 19:58 20:20 20:34 23:55 Temp 99.5 98.9 99.5 98.9 Pulse 74 73 Resp 20 20 B/P (MAP) 171/70 (103) 139/57 (84) Pulse Ox 97 98 99 O2 Delivery Room Air Room Air Room Air Room Air 02/19/19 02/19/19 02/19/19 03:51 07:26 08:14 Temp 98.2 98.2 Pulse 65 67 Resp 18 B/P (MAP) 150/59 (89) 126/53 Pulse Ox 100 98 O2 Delivery Room Air Room Air Intake and Output 02/18/19 02/18/19 02/19/19 15:00 23:00 07:00 Intake Total 200 ml 400 ml 600 ml Output Total 300 ml Balance -100 ml 400 ml 600 ml CANDICE BAUER MD Feb 19, 2019 08:21
--- NOTE | 2019-02-19 08:24 | PDOC ---
SURGICAL PROGRESS NOTE Subjective having abd pain, radiating to back did have reproduction of symptoms with CCK Vital Signs Vital Signs Date Time Temp Pulse Resp B/P (MAP) Pulse Ox O2 Delivery O2 Flow Rate FiO2 02/19/19 08:14 67 126/53 02/19/19 07:26 98 Room Air 02/19/19 03:51 98.2 18 98.2 I&O Intake and Output 02/19/19 07:00 Intake Total 1200 ml Output Total 300 ml Balance 900 ml Intake Oral 1200 ml Output Urine Total 300 ml # Voids 5 # Bowel Movements 2 General: Alert, Oriented X3, Cooperative Abdomen: Soft, Other (mild TTP RUQ) Labs Laboratory Tests Test 02/17/19 10:30 02/18/19 04:50 02/19/19 03:05 Heparin Anti-Xa Act, Unfractionated 0.46 IU/mL (0.30-0.70) < 0.10 IU/mL (0.30-0.70) Hemoglobin 13.6 g/dL (12.0-15.5) 13.4 g/dL (12.0-15.5) Hematocrit 41.8 % (36.0-47.0) 41.2 % (36.0-47.0) Mean Corpuscular Hemoglobin Concent 33 g/dL (31-37) 33 g/dL (31-37) Sodium Level 142 mmol/L (136-145) Potassium Level 3.9 mmol/L (3.5-5.1) Chloride Level 108 mmol/L (98-107) Carbon Dioxide Level 26 mmol/L (21-32) Anion Gap 8 (6-14) Blood Urea Nitrogen 8 mg/dL (7-20) Creatinine 1.1 mg/dL (0.6-1.0) Estimated GFR (Cockcroft-Gault) 58.4 Glucose Level 99 mg/dL (70-99) Calcium Level 8.8 mg/dL (8.5-10.1) Triglycerides Level 69 mg/dL (0-150) Cholesterol Level 182 mg/dL (0-200) LDL Cholesterol, Calculated 112 mg/dL (0-100) VLDL Cholesterol, Calculated 14 mg/dL (0-40) Non-HDL Cholesterol Calculated 126 mg/dL (0-129) HDL Cholesterol 56 mg/dL (40-60) Cholesterol/HDL Ratio 3.3 White Blood Count 8.5 x10^3/uL (4.0-11.0) Red Blood Count 4.57 x10^6/uL (3.50-5.40) Mean Corpuscular Volume 90 fL (79-100) Mean Corpuscular Hemoglobin 29 pg (25-35) Red Cell Distribution Width 14.7 % (11.5-14.5) Platelet Count 141 x10^3/uL (140-400) Laboratory Tests Test 02/19/19 03:05 White Blood Count 8.5 x10^3/uL (4.0-11.0) Red Blood Count 4.57 x10^6/uL (3.50-5.40) Hemoglobin 13.4 g/dL (12.0-15.5) Hematocrit 41.2 % (36.0-47.0) Mean Corpuscular Volume 90 fL (79-100) Mean Corpuscular Hemoglobin 29 pg (25-35) Mean Corpuscular Hemoglobin Concent 33 g/dL (31-37) Red Cell Distribution Width 14.7 % (11.5-14.5) Platelet Count 141 x10^3/uL (140-400) Problem List Problems Medical Problems: (1) Acute kidney injury Status: Acute (2) Atypical chest pain Status: Acute (3) Elevated troponin I level Status: Acute (4) Syncope Status: Acute Assessment/Plan US with minimal sludge, EF 76%, did have reproduction of symptoms will review with Dr Damon --may need to consider FU in clinic once medically stable, currently poor surgical candidate subdural hematoma--plans for CT next week KATHRYN LR LOADING MACHINE OPERATOR Feb 19, 2019 08:24
--- NOTE | 2019-02-19 08:38 | NUR ---
SW following pt. Pt is a transfer from ICU. Pt samyal recommends home independent. Neuro, gen sx following pt. SW will be available as needed.
--- NOTE | 2019-02-19 08:42 | PDOC ---
PROGRESS NOTES Subjective Subjective No new complaints. Objective Objective Vital Signs Date Time Temp Pulse Resp B/P (MAP) Pulse Ox O2 Delivery O2 Flow Rate FiO2 02/19/19 08:14 67 126/53 02/19/19 07:26 98 Room Air 02/19/19 03:51 98.2 18 98.2 02/17/19 12:13 2.0 Intake and Output 02/19/19 07:00 Intake Total 1200 ml Output Total 300 ml Balance 900 ml Intake Oral 1200 ml Output Urine Total 300 ml # Voids 5 # Bowel Movements 2 Physical Exam Physical Exam She is alert,sitting at edge of bed and seems to be in no distress. She is inde pendent with her mobility and most of her self care tasks. Assessment Assessment Problems Medical Problems: (1) Acute kidney injury Status: Acute (2) Atypical chest pain Status: Acute (3) Elevated troponin I level Status: Acute (4) Syncope Status: Acute Plan Plan of Alf when medically stable with out patient follow up. To ask general surgery to look at her left ring finger nail bed infection for any advise. Comment Review of Relevant I have reviewed the following items tigre (where applicable) has been applied. Labs Laboratory Tests Test 02/17/19 10:30 02/18/19 04:50 02/19/19 03:05 Heparin Anti-Xa Act, Unfractionated 0.46 IU/mL (0.30-0.70) < 0.10 IU/mL (0.30-0.70) Hemoglobin 13.6 g/dL (12.0-15.5) 13.4 g/dL (12.0-15.5) Hematocrit 41.8 % (36.0-47.0) 41.2 % (36.0-47.0) Mean Corpuscular Hemoglobin Concent 33 g/dL (31-37) 33 g/dL (31-37) Sodium Level 142 mmol/L (136-145) Potassium Level 3.9 mmol/L (3.5-5.1) Chloride Level 108 mmol/L (98-107) Carbon Dioxide Level 26 mmol/L (21-32) Anion Gap 8 (6-14) Blood Urea Nitrogen 8 mg/dL (7-20) Creatinine 1.1 mg/dL (0.6-1.0) Estimated GFR (Cockcroft-Gault) 58.4 Glucose Level 99 mg/dL (70-99) Calcium Level 8.8 mg/dL (8.5-10.1) Triglycerides Level 69 mg/dL (0-150) Cholesterol Level 182 mg/dL (0-200) LDL Cholesterol, Calculated 112 mg/dL (0-100) VLDL Cholesterol, Calculated 14 mg/dL (0-40) Non-HDL Cholesterol Calculated 126 mg/dL (0-129) HDL Cholesterol 56 mg/dL (40-60) Cholesterol/HDL Ratio 3.3 White Blood Count 8.5 x10^3/uL (4.0-11.0) Red Blood Count 4.57 x10^6/uL (3.50-5.40) Mean Corpuscular Volume 90 fL (79-100) Mean Corpuscular Hemoglobin 29 pg (25-35) Red Cell Distribution Width 14.7 % (11.5-14.5) Platelet Count 141 x10^3/uL (140-400) Laboratory Tests Test 02/19/19 03:05 White Blood Count 8.5 x10^3/uL (4.0-11.0) Red Blood Count 4.57 x10^6/uL (3.50-5.40) Hemoglobin 13.4 g/dL (12.0-15.5) Hematocrit 41.2 % (36.0-47.0) Mean Corpuscular Volume 90 fL (79-100) Mean Corpuscular Hemoglobin 29 pg (25-35) Mean Corpuscular Hemoglobin Concent 33 g/dL (31-37) Red Cell Distribution Width 14.7 % (11.5-14.5) Platelet Count 141 x10^3/uL (140-400) Medications Current Medications Morphine Sulfate (Morphine Sulfate) 4 mg PRN Q15MIN PRN IV/SQ PAIN GREATER THAN 3/10 Last administered on 02/16/19at 15:05; Start 02/16/19 at 13:30; Stop 02/17/19 at 07:10; Status DC Sodium Chloride 1,000 ml @ 125 mls/hr 1X ONCE IV Last administered on 02/16/19at 13:54; Start 02/16/19 at 14:00; Stop 02/16/19 at 21:59; Status DC Heparin Sodium (Porcine) (Heparin Sodium) 4,000 unit 1X ONCE IV Last administered on 02/16/19at 15:11; Start 02/16/19 at 15:15; Stop 02/16/19 at 15:16; Status DC Heparin Sodium/ Dextrose 500 ml @ 0 mls/hr CONT PRN IV PER PROTOCOL Last administered on 02/16/19at 15:16; Start 02/16/19 at 15:30; Stop 02/17/19 at 17:17; Status DC Heparin Sodium (Porcine) (Heparin Sodium) 1,950 unit PRN Q6HRS PRN IV FOR UFH LEVEL LESS THAN 0.2; Start 02/16/19 at 15:30; Stop 02/17/19 at 17:17; Status DC Ondansetron HCl (Zofran) 4 mg PRN Q8HRS PRN IV NAUSEA/VOMITING; Start 02/16/19 at 15:45; Stop 02/17/19 at 08:40; Status DC Morphine Sulfate (Morphine Sulfate) 4 mg PRN Q2HR PRN IV PAIN Last administered on 02/17/19at 11:43; Start 02/16/19 at 15:45; Stop 02/17/19 at 15:44; Status DC Sodium Chloride 1,000 ml @ 125 mls/hr Q8H IV Last administered on 02/17/19at 06:52; Start 02/16/19 at 15:31; Stop 02/17/19 at 15:30; Status DC Ceftriaxone Sodium (Rocephin) 1 gm Q24H IVP Last administered on 02/17/19at 20:29; Start 02/16/19 at 20:00 Amlodipine Besylate (Norvasc) 5 mg DAILY PO Last administered on 02/19/19at 08:14; Start 02/17/19 at 09:00 Aspirin (Ecotrin) 81 mg DAILY PO Last administered on 02/17/19at 09:29; Start 02/17/19 at 09:00; Stop 02/17/19 at 17:17; Status DC Vitamin D (Vitamin D3) 6,000 unit DAILY PO Last administered on 02/18/19at 09:24; Start 02/17/19 at 09:00 Acetaminophen/ Hydrocodone Bitart (Lortab 5/325) 1 tab PRN Q6HRS PRN PO MODERATE PAIN, SEVERE PAIN Last administered on 02/18/19at 09:29; Start 02/16/19 at 19:30 Levothyroxine Sodium (Synthroid) 100 mcg DAILY07 PO Last administered on 02/19/19 08:12; Start 02/17/19 at 07:00 Multivitamins (Thera M Plus) 1 tab DAILY PO Last administered on 02/19/19 08:12; Start 02/17/19 at 09:00 Non-Formulary Medication (Vit A & D3 In Cod Liver Oil (Cod Liver Oil Softgel)) 1 each DAILY PO ; Start 02/17/19 at 09:00; Status UNV Diphenhydramine HCl (Benadryl) 25 mg PRN QHS PRN PO INSOMNIA; Start 02/16/19 at 21:15 Pantoprazole Sodium (Protonix) 40 mg DAILYAC PO Last administered on 02/19/19 08:12; Start 02/17/19 at 07:30 Albuterol/ Ipratropium (Duoneb) 3 ml RTQID NEB Last administered on 02/19/19 07:25; Start 02/17/19 at 08:00 Ondansetron HCl (Zofran) 4 mg PRN Q6HRS PRN IV NAUSEA/VOMITING; Start 02/17/19 at 08:45 Benzonatate (Tessalon Perle) 100 mg [id number] PO Last administered on 02/19/19 08:12; Start 02/17/19 at 09:00 Guaifenesin (Robitussin Dm) 10 ml PRN Q6HRS PRN PO COUGH; Start 02/17/19 at 08:45 Tramadol HCl (Ultram) 50 mg PRN Q6HRS PRN PO MILD PAIN 1-3 Last administered on 02/18/19 20:20; Start 02/17/19 at 08:45 Calcium Carbonate/ Glycine (Tums) 500 mg PRN AFTMEALHC PRN PO INDIGESTION Last administered on 02/17/19 11:56; Start 02/17/19 at 08:45 Temazepam (Restoril) 7.5 mg PRN QHS PRN PO INSOMNIA Last administered on 02/18/19 20:15; Start 02/17/19 at 08:45 Nitroglycerin (Nitrostat) 0.4 mg PRN Q5MIN PRN SL CHEST PAIN Last administered on 11/24/19at 11:58; Start 02/17/19 at 12:00 Lactobacillus Rhamnosus (Culturelle) 1 cap BID PO Last administered on 02/18/19at 20:15; Start 02/17/19 at 21:00 Labetalol HCl (Normodyne Iv Push) 20 mg 1X ONCE IVP Last administered on 04/19/18at 18:40; Start 02/17/19 at 18:15; Stop 02/17/19 at 18:16; Status DC Labetalol HCl (Normodyne Iv Push) 20 mg PRN Q2HR PRN IVP HYPERTENSION Last administered on 02/18/19at 05:41; Start 02/17/19 at 18:15 Nicardipine HCl 50 mg/Sodium Chloride 250 ml @ 25 mls/hr CONT PRN IV SEE I/O RECORD; Start 02/17/19 at 18:15 Dicyclomine HCl (Bentyl) 10 mg PRN TID PRN PO STOMACH CRAMPING; Start 02/18/19 at 10:45 Sincalide 1.6 mcg/ Sodium Chloride 30 ml @ 120 mls/hr 1X ONCE IV Last administered on 02/18/19at 14:31; Start 02/18/19 at 14:30; Stop 02/18/19 at 14:44; Status DC Active Scripts Active Reported Cephalexin 500 Mg Capsule 500 Mg PO Q8HRS PRN Cod Liver Oil Softgel (Vit A & D3 In Cod Liver Oil) 1 Each Capsule 1 Each PO DAILY Women's 50 Plus Multivit Tab (Mv-Mn/Folic Acid/Calcium/Vit K) 1 Each Tablet 2 Each PO DAILY Vitamin D3 (Cholecalciferol (Vitamin D3)) 1,000 Unit Tablet 6,000 Unit PO DAILY Amlodipine Besylate 5 Mg Tablet 5 Mg PO DAILY Hydrocodone-Apap 5-325 (Hydrocodone Bit/Acetaminophen) 1 Each Tablet 1 Tab PO PRN Q6HRS PRN Aspir 81 (Aspirin) 81 Mg Tablet. 1 Tab PO DAILY Levothyroxine Sodium 100 Mcg Tablet 100 Mcg PO DAILY Vitals/I & O Vital Sign - Last 24 Hours 02/18/19 02/18/19 02/18/19 02/18/19 09:00 09:25 09:29 10:00 Pulse 59 65 58 Resp 20 20 20 B/P (MAP) 146/86 (106) 127/71 156/84 (108) Pulse Ox 97 98 97 O2 Delivery Room Air Room Air Room Air 02/18/19 02/18/19 02/18/19 02/18/19 11:00 11:46 12:00 16:58 Temp 98.2 98.2 Pulse 54 53 Resp 22 20 B/P (MAP) 144/71 (95) 127/64 (85) Pulse Ox 97 97 100 97 O2 Delivery Room Air Room Air Room Air Room Air 02/18/19 02/18/19 02/18/19 02/18/19 19:58 20:20 20:34 23:55 Temp 99.5 98.9 99.5 98.9 Pulse 74 73 Resp 20 20 B/P (MAP) 171/70 (103) 139/57 (84) Pulse Ox 97 98 99 O2 Delivery Room Air Room Air Room Air Room Air 02/19/19 02/19/19 02/19/19 03:51 07:26 08:14 Temp 98.2 98.2 Pulse 65 67 Resp 18 B/P (MAP) 150/59 (89) 126/53 Pulse Ox 100 98 O2 Delivery Room Air Room Air Intake and Output 02/18/19 02/18/19 02/19/19 15:00 23:00 07:00 Intake Total 200 ml 400 ml 600 ml Output Total 300 ml Balance -100 ml 400 ml 600 ml NATHAN WINTER MD Feb 19, 2019 08:42
--- NOTE | 2019-02-19 08:52 | EEG ---
DATE OF SERVICE: 02/18/2019 EEG NUMBER: [id number]. OBJECTIVE: The patient is a 78-year-old female with a left-sided subdural hematoma who had a syncopal episode. DESCRIPTION: This is a digital study. Electrodes are placed according to the international 10-20 system. Bipolar and referential montages are available. Activation procedures typically include hyperventilation and intermittent photic stimulation. INTERPRETATION: The waking background consists of 8-9 Hz, 50-100 microvolt activity, symmetrically distributed over parietooccipital regions and reactive to eye opening. Hyperventilation and intermittent photic stimulation are noncontributory. Stage 1 sleep is achieved with normal electroencephalogram patterns. IMPRESSION: This electroencephalogram with the patient awake and asleep is within normal limits. There is no focal, paroxysmal, or epileptiform activity. Thank you for letting us help with the patient's care. ABDIRIZAK FIGUEROA MD DR: HECTOR/baldomero JOB#: [id number] / [id number]
--- NOTE | 2019-02-19 09:44 | PDOC ---
Subjective: Subjective: I asked about her conversation with the surgery team - she says she has not seen anyone this morning. Has epigastric pain radiating around both sides to back - "burning." Similar symptoms in the middle of the night in October - "frying." Eating and stooling without issue. Objective: Objective: Reviewed surgery note - reproduction of symptoms w/ HIDA, reviewing w/ Dr. Damon. Transportation here for MRI. Vital Signs: Vital Signs Date Time Temp Pulse Resp B/P (MAP) Pulse Ox O2 Delivery O2 Flow Rate FiO2 02/19/19 08:14 67 126/53 02/19/19 07:26 98 Room Air 02/19/19 07:00 97.9 18 97.9 Labs: Laboratory Tests Test 02/19/19 03:05 White Blood Count 8.5 x10^3/uL Red Blood Count 4.57 x10^6/uL Hemoglobin 13.4 g/dL Hematocrit 41.2 % Mean Corpuscular Volume 90 fL Mean Corpuscular Hemoglobin 29 pg Mean Corpuscular Hemoglobin Concent 33 g/dL Red Cell Distribution Width 14.7 % Platelet Count 141 x10^3/uL Imaging: HIDA 02/18 IMPRESSION: 1. Normal gallbladder ejection fraction 76%. Head CT 02/18 IMPRESSION: Stable left hemispheric mixed density acute/subacute subdural hematoma. PE: GEN: NAD LUNGS: CTAB HEART: RRR ABD: epigastric discomfort to BUQ (more to right) NEURO/PSYCH: A & O 3 A/P: Subdural hematoma Abd pain GB sludge, mild CBD dilation, normal GB EF -- Continue PPI, await surgical thoughts. Other per Dr. Suarez. KAREN ESPINO Feb 19, 2019 09:44
[2019-02-19] MEDS ORDERED: GADOTERATE 7.5 MMOL/15ML VIAL. IVP ONE (09:45)
--- NOTE | 2019-02-19 09:51 | PDOC ---
PROGRESS NOTES Assessment Problems Medical Problems: (1) Acute kidney injury Status: Acute (2) Atypical chest pain Status: Acute (3) Elevated troponin I level Status: Acute (4) Syncope Status: Acute Syncope, doubt seizure. Patient with known cardiac disease. EEG was negative Small left subdural hematoma with 3 mm of midline shift Has had left arm pain and numbness for 4 months for which she is scheduled to see me 04/24 Right internal carotid artery 50-69 percent stenosis, left internal carotid artery 50 percent stenosis. G.I. and surgery are following for abdominal pain, she has some gallbladder sludge, mild common bile duct dilation, normal gallbladder ejection fraction Plan Does not need neurosurgery Neurosurgery recommends followup CT 1 week Cardiology is following as well Follow-up with me as scheduled Subjective Still has some abdominal pain, no neurological issues Objective Vital Signs Date Time Temp Pulse Resp B/P (MAP) Pulse Ox O2 Delivery O2 Flow Rate FiO2 02/19/19 08:14 67 126/53 02/19/19 07:26 98 Room Air 02/19/19 07:00 97.9 18 97.9 Intake and Output 02/19/19 07:00 Intake Total 1200 ml Output Total 300 ml Balance 900 ml Intake Oral 1200 ml Output Urine Total 300 ml # Voids 5 # Bowel Movements 2 PHYSICAL EXAM Alert. Oriented to time, place and person. PERRL. EOMI. CN: no focal findings. Muscle tone: normal. Muscle strength: 5/5 DTR: 1-2+ Plantar reflex: flexor Gait: normal. Sensory exam: no abnormal findings. No cerebellar signs elicited. Review of Relevant I have reviewed the following items tigre (where applicable) has been applied. Labs Laboratory Tests Test 02/17/19 10:30 02/18/19 04:50 02/19/19 03:05 Heparin Anti-Xa Act, Unfractionated 0.46 IU/mL (0.30-0.70) < 0.10 IU/mL (0.30-0.70) Hemoglobin 13.6 g/dL (12.0-15.5) 13.4 g/dL (12.0-15.5) Hematocrit 41.8 % (36.0-47.0) 41.2 % (36.0-47.0) Mean Corpuscular Hemoglobin Concent 33 g/dL (31-37) 33 g/dL (31-37) Sodium Level 142 mmol/L (136-145) Potassium Level 3.9 mmol/L (3.5-5.1) Chloride Level 108 mmol/L (98-107) Carbon Dioxide Level 26 mmol/L (21-32) Anion Gap 8 (6-14) Blood Urea Nitrogen 8 mg/dL (7-20) Creatinine 1.1 mg/dL (0.6-1.0) Estimated GFR (Cockcroft-Gault) 58.4 Glucose Level 99 mg/dL (70-99) Calcium Level 8.8 mg/dL (8.5-10.1) Triglycerides Level 69 mg/dL (0-150) Cholesterol Level 182 mg/dL (0-200) LDL Cholesterol, Calculated 112 mg/dL (0-100) VLDL Cholesterol, Calculated 14 mg/dL (0-40) Non-HDL Cholesterol Calculated 126 mg/dL (0-129) HDL Cholesterol 56 mg/dL (40-60) Cholesterol/HDL Ratio 3.3 White Blood Count 8.5 x10^3/uL (4.0-11.0) Red Blood Count 4.57 x10^6/uL (3.50-5.40) Mean Corpuscular Volume 90 fL (79-100) Mean Corpuscular Hemoglobin 29 pg (25-35) Red Cell Distribution Width 14.7 % (11.5-14.5) Platelet Count 141 x10^3/uL (140-400) Laboratory Tests Test 02/19/19 03:05 White Blood Count 8.5 x10^3/uL (4.0-11.0) Red Blood Count 4.57 x10^6/uL (3.50-5.40) Hemoglobin 13.4 g/dL (12.0-15.5) Hematocrit 41.2 % (36.0-47.0) Mean Corpuscular Volume 90 fL (79-100) Mean Corpuscular Hemoglobin 29 pg (25-35) Mean Corpuscular Hemoglobin Concent 33 g/dL (31-37) Red Cell Distribution Width 14.7 % (11.5-14.5) Platelet Count 141 x10^3/uL (140-400) Medications Current Medications Morphine Sulfate (Morphine Sulfate) 4 mg PRN Q15MIN PRN IV/SQ PAIN GREATER THAN 3/10 Last administered on 02/16/19at 15:05; Start 02/16/19 at 13:30; Stop 02/17/19 at 07:10; Status DC Sodium Chloride 1,000 ml @ 125 mls/hr 1X ONCE IV Last administered on 02/16/19at 13:54; Start 02/16/19 at 14:00; Stop 02/16/19 at 21:59; Status DC Heparin Sodium (Porcine) (Heparin Sodium) 4,000 unit 1X ONCE IV Last administered on 02/16/19at 15:11; Start 02/16/19 at 15:15; Stop 02/16/19 at 15:16; Status DC Heparin Sodium/ Dextrose 500 ml @ 0 mls/hr CONT PRN IV PER PROTOCOL Last adm inistered on 02/16/19at 15:16; Start 02/16/19 at 15:30; Stop 02/17/19 at 17:17; Status DC Heparin Sodium (Porcine) (Heparin Sodium) 1,950 unit PRN Q6HRS PRN IV FOR UFH LEVEL LESS THAN 0.2; Start 02/16/19 at 15:30; Stop 02/17/19 at 17:17; Status DC Ondansetron HCl (Zofran) 4 mg PRN Q8HRS PRN IV NAUSEA/VOMITING; Start 02/16/19 at 15:45; Stop 02/17/19 at 08:40; Status DC Morphine Sulfate (Morphine Sulfate) 4 mg PRN Q2HR PRN IV PAIN Last administered on 02/17/19at 11:43; Start 02/16/19 at 15:45; Stop 02/17/19 at 15:44; Status DC Sodium Chloride 1,000 ml @ 125 mls/hr Q8H IV Last administered on 02/17/19at 06:52; Start 02/16/19 at 15:31; Stop 02/17/19 at 15:30; Status DC Ceftriaxone Sodium (Rocephin) 1 gm Q24H IVP Last administered on 02/17/19at 20:29; Start 02/16/19 at 20:00 Amlodipine Besylate (Norvasc) 5 mg DAILY PO Last administered on 02/19/19at 08:14; Start 02/17/19 at 09:00 Aspirin (Ecotrin) 81 mg DAILY PO Last administered on 02/17/19at 09:29; Start 02/17/19 at 09:00; Stop 02/17/19 at 17:17; Status DC Vitamin D (Vitamin D3) 6,000 unit DAILY PO Last administered on 02/18/19at 09:24; Start 02/17/19 at 09:00 Acetaminophen/ Hydrocodone Bitart (Lortab 5/325) 1 tab PRN Q6HRS PRN PO MODERATE PAIN, SEVERE PAIN Last administered on 02/18/19 09:29; Start 02/16/19 at 19:30 Levothyroxine Sodium (Synthroid) 100 mcg DAILY07 PO Last administered on 02/19/19 08:12; Start 02/17/19 at 07:00 Multivitamins (Thera M Plus) 1 tab DAILY PO Last administered on 02/19/19 08:12; Start 02/17/19 at 09:00 Non-Formulary Medication (Vit A & D3 In Cod Liver Oil (Cod Liver Oil Softgel)) 1 each DAILY PO ; Start 02/17/19 at 09:00; Status UNV Diphenhydramine HCl (Benadryl) 25 mg PRN QHS PRN PO INSOMNIA; Start 02/16/19 at 21:15 Pantoprazole Sodium (Protonix) 40 mg DAILYAC PO Last administered on 02/19/19at 08:12; Start 02/17/19 at 07:30 Albuterol/ Ipratropium (Duoneb) 3 ml RTQID NEB Last administered on 02/19/19at 07:25; Start 02/17/19 at 08:00 Ondansetron HCl (Zofran) 4 mg PRN Q6HRS PRN IV NAUSEA/VOMITING; Start 02/17/19 at 08:45 Benzonatate (Tessalon Perle) 100 mg [id number] PO Last administered on 02/19/19at 08:12; Start 02/17/19 at 09:00 Guaifenesin (Robitussin Dm) 10 ml PRN Q6HRS PRN PO COUGH; Start 02/17/19 at 08:45 Tramadol HCl (Ultram) 50 mg PRN Q6HRS PRN PO MILD PAIN 1-3 Last administered on 02/18/19at 20:20; Start 02/17/19 at 08:45 Calcium Carbonate/ Glycine (Tums) 500 mg PRN AFTMEALHC PRN PO INDIGESTION Last administered on 02/17/19at 11:56; Start 02/17/19 at 08:45 Temazepam (Restoril) 7.5 mg PRN QHS PRN PO INSOMNIA Last administered on 02/18/19at 20:15; Start 02/17/19 at 08:45 Nitroglycerin (Nitrostat) 0.4 mg PRN Q5MIN PRN SL CHEST PAIN Last administered on 02/17/19at 11:58; Start 02/17/19 at 12:00 Lactobacillus Rhamnosus (Culturelle) 1 cap BID PO Last administered on 02/18/19at 20:15; Start 02/17/19 at 21:00 Labetalol HCl (Normodyne Iv Push) 20 mg 1X ONCE IVP Last administered on 02/17/19at 18:40; Start 02/17/19 at 18:15; Stop 02/17/19 at 18:16; Status DC Labetalol HCl (Normodyne Iv Push) 20 mg PRN Q2HR PRN IVP HYPERTENSION Last administered on 02/18/19at 05:41; Start 02/17/19 at 18:15 Nicardipine HCl 50 mg/Sodium Chloride 250 ml @ 25 mls/hr CONT PRN IV SEE I/O RECORD; Start 02/17/19 at 18:15 Dicyclomine HCl (Bentyl) 10 mg PRN TID PRN PO STOMACH CRAMPING; Start 02/18/19 at 10:45 Sincalide 1.6 mcg/ Sodium Chloride 30 ml @ 120 mls/hr 1X ONCE IV Last administered on 02/18/19at 14:31; Start 02/18/19 at 14:30; Stop 02/18/19 at 14:44; Status DC Gadoterate Meglumine (Dotarem) 16 ml 1X ONCE IVP ; Start 02/19/19 at 09:45; Stop 02/19/19 at 09:46; Status UNV Active Scripts Active Reported Cephalexin 500 Mg Capsule 500 Mg PO Q8HRS PRN Cod Liver Oil Softgel (Vit A & D3 In Cod Liver Oil) 1 Each Capsule 1 Each PO DAILY Women's 50 Plus Multivit Tab (Mv-Mn/Folic Acid/Calcium/Vit K) 1 Each Tablet 2 Each PO DAILY Vitamin D3 (Cholecalciferol (Vitamin D3)) 1,000 Unit Tablet 6,000 Unit PO DAILY Amlodipine Besylate 5 Mg Tablet 5 Mg PO DAILY Hydrocodone-Apap 5-325 (Hydrocodone Bit/Acetaminophen) 1 Each Tablet 1 Tab PO PRN Q6HRS PRN Aspir 81 (Aspirin) 81 Mg Tablet. 1 Tab PO DAILY Levothyroxine Sodium 100 Mcg Tablet 100 Mcg PO DAILY Vitals/I & O Vital Sign - Last 24 Hours 02/18/19 02/18/19 02/18/19 02/18/19 10:00 11:00 11:46 12:00 Temp 98.2 98.2 Pulse 58 54 53 Resp 20 22 20 B/P (MAP) 156/84 (108) 144/71 (95) 127/64 (85) Pulse Ox 97 97 97 100 O2 Delivery Room Air Room Air Room Air Room Air 02/18/19 02/18/19 02/18/19 02/18/19 16:58 19:58 20:20 20:34 Temp 99.5 99.5 Pulse 74 Resp 20 B/P (MAP) 171/70 (103) Pulse Ox 97 97 98 O2 Delivery Room Air Room Air Room Air Room Air 02/18/19 02/19/19 02/19/19 02/19/19 23:55 03:51 07:00 07:26 Temp 98.9 98.2 97.9 98.9 98.2 97.9 Pulse 73 65 58 Resp 20 18 18 B/P (MAP) 139/57 (84) 150/59 (89) 88/65 (73) Pulse Ox 99 100 97 98 O2 Delivery Room Air Room Air Room Air Room Air 02/19/19 08:14 Pulse 67 B/P (MAP) 126/53 Intake and Output 02/18/19 02/18/19 02/19/19 15:00 23:00 07:00 Intake Total 200 ml 400 ml 600 ml Output Total 300 ml Balance -100 ml 400 ml 600 ml ABDIRIZAK FIGUEROA MD Feb 19, 2019 09:51
--- NOTE | 2019-02-19 10:38 | RAD ---
MRI Brain with and without contrast History: Subdural hematoma Technique: Multiplanar, multi sequential pre and postcontrast MR imaging was performed of the brain. Comparison: February 18, 2019 CT head exam Findings: There is again subdural hematoma along the left lateral convexity greatest transverse thickness about 0.9 cm in the left parietal region. This is internally hyperintense on the FLAIR sequence and somewhat hyperintense on the T1 sequence. There is no significant midline shift. There is no nodular parenchymal or leptomeningeal enhancement. There is degree of diffuse enhancement associated with the subdural hematoma. Ventricular size is within normal limits. There is mild to moderate supratentorial atrophy. There is scattered overall mild T2 and FLAIR hyperintense signal abnormality of the supratentorial parenchyma bilaterally. There is no evidence of recent infarct. There is preservation of the major arterial intracranial flow voids the skull base. There is mild fluid of the bilateral mastoid air cells. There is very minimal bilateral ethmoid air cell mucosal thickening. Cerebellar tonsils are normal in location. There is degenerative disc disease of visualized cervical spine. There is no abnormality of pineal gland or pituitary gland. There is preserved marrow signal of the clivus. Impression: 1. As seen on CT, there is acute/early subacute subdural hematoma along the left lateral convexity, similar in size comparing with CT. There is associated degree of nonspecific diffuse enhancement although no nodular enhancement identified. There is no midline shift. 2. There is generalized supratentorial atrophy. 3. There is overall mild T2 and FLAIR hyperintense signal abnormality of the supratentorial parenchyma bilaterally, nonspecific findings probably due to chronic microvascular ischemic disease in a patient of this age. Electronically signed by: Aly Leung MD (02/19/2019 10:35 AM) [id number]
[2019-02-19 11:00] VITALS: BP 152/57
[2019-02-19] MEDS: CHOLECALCIFEROL (VITAMIN D3) 1,000 UNIT TABLET PO SCH (11:07)
[2019-02-19] MEDS: HYDROcodone/APAP 5/325MG 1 TAB TABLET PO PRN ×2 (14:55→21:28)
[2019-02-19 15:00] VITALS: BP 150/52
[2019-02-19] MEDS: traMADol 50 MG TABLET PO PRN (15:58)
--- NOTE | 2019-02-19 16:10 | NUR ---
Patient told this nurse that she's concerned about her bowel habits. She claims to have episodes of constipation and sometimes alternate with diarrhea. This condition has been going on for over 6 months. The patient also reports of 10 lbs weight loss for almost a year. She said she had extensive workup in the past, had colonoscopy but without significant findings. This nurse told the patient that we will inform GI service about her symptoms. Paged MOLINA De Dios at [phone] and discussed with her the patient's concerns. GI service to evaluate further tomorrow.
[2019-02-19] MEDS ORDERED: BENZONATATE 100 MG CAPSULE. PO PRN (18:00)
[2019-02-19 19:00] VITALS: BP 168/67
[2019-02-19] MEDS: TEMAZEPAM 7.5 MG CAPSULE PO PRN (21:29)
[2019-02-19] MEDS: cefTRIAXone IV Push 1 GM VIAL. IVP SCH (21:43)
[2019-02-19 23:20] VITALS: BP 136/50
[2019-02-20 03:28] VITALS: BP 137/58
[2019-02-20 07:00] VITALS: BP 164/81
[2019-02-20] MEDS: LEVOTHYROXINE 100 MCG TABLET PO SCH (07:46)
[2019-02-20] MEDS: PANTOPRAZOLE 40 MG TABLET.DR. PO SCH (07:46)
--- NOTE | 2019-02-20 07:54 | PDOC ---
PROGRESS NOTES Chief Complaint Chief Complaint DISCHARGE DX Transient Slurred speech Acute to subacute left hemispheric subdural hematoma. 3 mm rightward midline shift. Trop elev x 3 (o.06, 0.0.7, 0.08) - no CP CAD with 1 stent on ASA 81 and compliant COPD Ex smoker, quit 10 yrs, 30 pack yrs Left arm pain since oct 2018, left wrist pain - follows with Dr Bardales, unrecalled recent abx Left second digit wound and swelling - wound care, on unrecalled abx currently Abd pain since october, burning, neg CT Right internal carotid artery 50-69 percent stenosis, left internal carotid artery 50 percent stenosis. US with minimal sludge, EF 76%, did have reproduction of symptoms Normal gallbladder ejection fraction. Neurosurgery recommends followup CT 1 week plan micky ///after CT next week to ensure stability and improvement in hematoma RE-CONSULT CARDIOLOGY re syncope, intermittent bradycardia 02/20 intermittent abdominal pain last night, NONE NOW, INSISTS she wants to go home today, will agree to very low fat diet 36 MIN PT EXAM d/c planning , CHART REVIEW, > 50% OF TIME SPENT WITH EXAM, CHART REVIEW, PT CARE COORDINATION History of Present Illness History of Present Illness NO CP, Left second digit paronychia - on abx per physiatry seen as OP, abd pain,s econd admission for the same with neg CT - consulted GI, COPD - pulmo on board, left wrist/arm pain, started Oct 2018 when she had LCH through RIGHT WRIST - sees neurology outpatient CT head with mild interval reviewedMRI . Neurosurgery evaluation. 1 week Plan: Neurosurgery consultation Add physiatry consult for the left wrist arm pain Add GI consult for that abd pain with neg CT - she describes as burning, gb disease suspected Vitals Vitals Vital Signs Date Time Temp Pulse Resp B/P (MAP) Pulse Ox O2 Delivery O2 Flow Rate FiO2 02/20/19 03:28 98.2 68 18 137/58 (84) 100 Room Air 98.2 02/19/19 19:10 2.0 Physical Exam General: Alert, Oriented X3, Cooperative, No acute distress Heart: Regular rate, Normal S1, Normal S2 Lungs: Clear Abdomen: Normal bowel sounds, Soft, Other (ttp RUQ) Extremities: No clubbing, No cyanosis Skin: No rashes, No breakdown Assessment and Plan Assessmemt and Plan Problems Medical Problems: (1) Acute kidney injury Status: Acute (2) Atypical chest pain Status: Acute (3) Elevated troponin I level Status: Acute (4) Syncope Status: Acute (3) Elevated troponin I level Status: Acute (4) Syncope Status: Acute Usual Living Arrangement * Alone Home Environment Type * House ADL Assistance Required Prior to Admission * Independent Mobility Assistance Required Prior to Admission * Independent Mobility devices used prior to admission * No Device Level of Consciousness * Alert Oriented to: * Person * Place * Time * Situation Follows Direction * Complex Behavior * Cooperative Range of Motion * LEs WNL Strength * LEs grossly 4+/5 Sitting Balance * 5 moves >2" all planes Standing Balance * 5 moves >2" all planes Objective Measures Comment * 3/3 with peripheral vision testing Pain Score * 0 Pain Scale Type * Descriptive Supine to Sit Assistance Required * Independent Transfer Assistance Required * Independent Transfer Type * Stand-Step Ambulation Assistance Required * Independent Ambulation Assistive Device * No Device Ambulation Distance * >150 Ft Ambulation Comments * No loss of balance backing, turning, walking normal pace. deviates from line during full tandem but demonstrates effective and timely steping strategy. Pt states feels safe walking independently. Other Information * I encouraged pt to continue to take walks and challenge her balance with things like head turns, tandem and unilateral stance Clinical Presentation * Stable Evaluation Complexity Level * Low Complexity Pt/caregiver agrees with plan of care/goals * Yes Patient condition at conclusion of therapy * Pt in bed * Call light in reach * Phone in reach * PtIn no apparent distress * Pt denies further needs * Visitor with patient No Further Skilled P.T. Intervention Required * Eval only-No PT Needs Discharge Recommendations * Home independent Discharge Recommendation - DME * None Comment Review of Relevant I have reviewed the following items tigre (where applicable) has been applied. Labs Laboratory Tests Test 02/19/19 03:05 White Blood Count 8.5 x10^3/uL (4.0-11.0) Red Blood Count 4.57 x10^6/uL (3.50-5.40) Hemoglobin 13.4 g/dL (12.0-15.5) Hematocrit 41.2 % (36.0-47.0) Mean Corpuscular Volume 90 fL (79-100) Mean Corpuscular Hemoglobin 29 pg (25-35) Mean Corpuscular Hemoglobin Concent 33 g/dL (31-37) Red Cell Distribution Width 14.7 % (11.5-14.5) Platelet Count 141 x10^3/uL (140-400) Microbiology 02/16/19 Urine Culture - Final, Complete 02/16/19 Urine Culture Result 1 (VIRAJ) - Final, Complete Medications Current Medications Morphine Sulfate (Morphine Sulfate) 4 mg PRN Q15MIN PRN IV/SQ PAIN GREATER THAN 3/10 Last administered on 02/16/19at 15:05; Start 02/16/19 at 13:30; Stop 02/17/19 at 07:10; Status DC Sodium Chloride 1,000 ml @ 125 mls/hr 1X ONCE IV Last administered on 02/16/19at 13:54; Start 02/16/19 at 14:00; Stop 02/16/19 at 21:59; Status DC Heparin Sodium (Porcine) (Heparin Sodium) 4,000 unit 1X ONCE IV Last administered on 02/16/19at 15:11; Start 02/16/19 at 15:15; Stop 02/16/19 at 15:16; Status DC Heparin Sodium/ Dextrose 500 ml @ 0 mls/hr CONT PRN IV PER PROTOCOL Last administered on 02/16/19at 15:16; Start 02/16/19 at 15:30; Stop 02/17/19 at 17:17; Status DC Heparin Sodium (Porcine) (Heparin Sodium) 1,950 unit PRN Q6HRS PRN IV FOR UFH LEVEL LESS THAN 0.2; Start 02/16/19 at 15:30; Stop 02/17/19 at 17:17; Status DC Ondansetron HCl (Zofran) 4 mg PRN Q8HRS PRN IV NAUSEA/VOMITING; Start 02/16/19 at 15:45; Stop 02/17/19 at 08:40; Status DC Morphine Sulfate (Morphine Sulfate) 4 mg PRN Q2HR PRN IV PAIN Last administered on 02/17/19at 11:43; Start 02/16/19 at 15:45; Stop 02/17/19 at 15:44; Status DC Sodium Chloride 1,000 ml @ 125 mls/hr Q8H IV Last administered on 02/17/19at 06:52; Start 02/16/19 at 15:31; Stop 02/17/19 at 15:30; Status DC Ceftriaxone Sodium (Rocephin) 1 gm Q24H IVP Last administered on 02/19/19 21:43; Start 02/16/19 at 20:00 Amlodipine Besylate (Norvasc) 5 mg DAILY PO Last administered on 02/19/19 08:14; Start 02/17/19 at 09:00 Aspirin (Ecotrin) 81 mg DAILY PO Last administered on 02/17/19 09:29; Start 02/17/19 at 09:00; Stop 02/17/19 at 17:17; Status DC Vitamin D (Vitamin D3) 6,000 unit DAILY PO Last administered on 02/19/19 11:07; Start 02/17/19 at 09:00 Acetaminophen/ Hydrocodone Bitart (Lortab 5/325) 1 tab PRN Q6HRS PRN PO MODERATE PAIN, SEVERE PAIN Last administered on 02/19/19 21:28; Start 02/16/19 at 19:30 Levothyroxine Sodium (Synthroid) 100 mcg DAILY07 PO Last administered on 02/20/19 07:46; Start 02/17/19 at 07:00 Multivitamins (Thera M Plus) 1 tab DAILY PO Last administered on 02/19/19 08:12; Start 02/17/19 at 09:00 Non-Formulary Medication (Vit A & D3 In Cod Liver Oil (Cod Liver Oil Softgel)) 1 each DAILY PO ; Start 02/17/19 at 09:00; Status UNV Diphenhydramine HCl (Benadryl) 25 mg PRN QHS PRN PO INSOMNIA; Start 02/16/19 at 21:15 Pantoprazole Sodium (Protonix) 40 mg DAILYAC PO Last administered on 02/20/19 07:46; Start 02/17/19 at 07:30 Albuterol/ Ipratropium (Duoneb) 3 ml RTQID NEB Last administered on 02/19/19at 19:36; Start 02/17/19 at 08:00 Ondansetron HCl (Zofran) 4 mg PRN Q6HRS PRN IV NAUSEA/VOMITING; Start 02/17/19 at 08:45 Benzonatate (Tessalon Perle) 100 mg [id number] PO Last administered on 02/19/19at 08:12; Start 02/17/19 at 09:00; Stop 02/19/19 at 17:52; Status DC Guaifenesin (Robitussin Dm) 10 ml PRN Q6HRS PRN PO COUGH; Start 02/17/19 at 08:45 Tramadol HCl (Ultram) 50 mg PRN Q6HRS PRN PO MILD PAIN 1-3 Last administered on 02/19/19at 15:58; Start 02/17/19 at 08:45 Calcium Carbonate/ Glycine (Tums) 500 mg PRN AFTMEALHC PRN PO INDIGESTION Last administered on 02/17/19 11:56; Start 02/17/19 at 08:45 Temazepam (Restoril) 7.5 mg PRN QHS PRN PO INSOMNIA Last administered on 02/19/19at 21:29; Start 02/17/19 at 08:45 Nitroglycerin (Nitrostat) 0.4 mg PRN Q5MIN PRN SL CHEST PAIN Last administered on 02/17/19at 11:58; Start 02/17/19 at 12:00 Lactobacillus Rhamnosus (Culturelle) 1 cap BID PO Last administered on 02/19/19at 21:33; Start 02/17/19 at 21:00 Labetalol HCl (Normodyne Iv Push) 20 mg 1X ONCE IVP Last administered on 02/17/19at 18:40; Start 02/17/19 at 18:15; Stop 02/17/19 at 18:16; Status DC Labetalol HCl (Normodyne Iv Push) 20 mg PRN Q2HR PRN IVP HYPERTENSION Last administered on 02/18/19at 05:41; Start 02/17/19 at 18:15 Nicardipine HCl 50 mg/Sodium Chloride 250 ml @ 25 mls/hr CONT PRN IV SEE I/O RECORD; Start 02/17/19 at 18:15 Dicyclomine HCl (Bentyl) 10 mg PRN TID PRN PO STOMACH CRAMPING; Start 02/18/19 at 10:45 Sincalide 1.6 mcg/ Sodium Chloride 30 ml @ 120 mls/hr 1X ONCE IV Last administered on 02/18/19at 14:31; Start 02/18/19 at 14:30; Stop 02/18/19 at 14:44; Status DC Gadoterate Meglumine (Dotarem) 16 ml 1X ONCE IVP Last administered on 02/19/19at 10:02; Start 02/19/19 at 09:45; Stop 02/19/19 at 09:47; Status DC Benzonatate (Tessalon Perle) 100 mg PRN TID PRN PO COUGH; Start 02/19/19 at 18:00 Active Scripts Active Reported Cephalexin 500 Mg Capsule 500 Mg PO Q8HRS PRN Cod Liver Oil Softgel (Vit A & D3 In Cod Liver Oil) 1 Each Capsule 1 Each PO DAILY Women's 50 Plus Multivit Tab (Mv-Mn/Folic Acid/Calcium/Vit K) 1 Each Tablet 2 Each PO DAILY Vitamin D3 (Cholecalciferol (Vitamin D3)) 1,000 Unit Tablet 6,000 Unit PO DAILY Amlodipine Besylate 5 Mg Tablet 5 Mg PO DAILY Hydrocodone-Apap 5-325 (Hydrocodone Bit/Acetaminophen) 1 Each Tablet 1 Tab PO PRN Q6HRS PRN Aspir 81 (Aspirin) 81 Mg Tablet. 1 Tab PO DAILY Levothyroxine Sodium 100 Mcg Tablet 100 Mcg PO DAILY Vitals/I & O Vital Sign - Last 24 Hours 02/19/19 02/19/19 02/19/19 02/19/19 08:14 11:00 11:14 14:55 Temp 97.6 97.6 Pulse 67 65 Resp 18 16 B/P (MAP) 126/53 152/57 (88) Pulse Ox 98 96 96 O2 Delivery Room Air Room Air Room Air O2 Flow Rate 2.0 02/19/19 02/19/19 02/19/19 02/19/19 15:00 15:24 15:55 15:58 Temp 98.0 98.0 Pulse 71 Resp 18 19 19 B/P (MAP) 150/52 (84) Pulse Ox 96 97 97 97 O2 Delivery Room Air Room Air Room Air Room Air 02/19/19 02/19/19 02/19/19 02/19/19 16:58 19:00 19:10 19:36 Temp 98.5 98.5 Pulse 71 Resp 19 20 B/P (MAP) 168/67 (100) Pulse Ox 97 99 98 O2 Delivery Room Air Room Air Room Air Room Air O2 Flow Rate 2.0 02/19/19 02/20/19 23:20 03:28 Temp 98.7 98.2 98.7 98.2 Pulse 70 68 Resp 18 18 B/P (MAP) 136/50 (78) 137/58 (84) Pulse Ox 97 100 O2 Delivery Room Air Room Air Intake and Output 02/19/19 02/19/19 02/20/19 15:00 23:00 07:00 Intake Total 600 ml 750 ml Balance 600 ml 750 ml CANDICE BAUER MD Feb 20, 2019 07:54
[2019-02-20] MEDS: IPRATRPIUM/ALBUTEROL 0.5/2.5MG 3 ML NEBU. NEB SCH ×3 (08:37→15:02)
--- NOTE | 2019-02-20 09:06 | PDOC ---
Subjective: Subjective: Pain is better now but she had some overnight - cannot establish pattern. Does not occur related to eating or stooling. Does have alternating bowel habits - "I've been that way for years." Might have early satiety. Last colonoscopy ~2016. Not sure about EGD. Says she lost weight related to dentures at one point. Objective: Objective: Nurse paged yesterday - pt/family wanted to relay years of IBS symptoms and recent weight loss. Vital Signs: Vital Signs Date Time Temp Pulse Resp B/P (MAP) Pulse Ox O2 Delivery O2 Flow Rate FiO2 02/20/19 08:37 98 Room Air 02/20/19 07:00 97.9 78 16 164/81 (108) 97.9 02/19/19 19:10 2.0 PE: GEN: NAD LUNGS: CTAB HEART: RRR ABD: NABS, S/ND/NT NEURO/PSYCH: A & O 3 A/P: Subdural hematoma - plans for interval CT next week Upper abd pain GB sludge, mild CBD dilation, normal GB EF - ?outpt surgery follow-up -- Has PRN Bentyl ordered - has not taken - could try. Seems h/o IBS-M - discussed use of Miralax PRN - is stooling here. Continue PPI trial for now, try GI cocktail. Could consider outpt EGD, GES, etc. KAREN ESPINO Feb 20, 2019 09:05
[2019-02-20] MEDS ORDERED: BISACODYL 5 MG TABLET.DR. PO PRN (09:15)
[2019-02-20] MEDS ORDERED: POLYETHYLENE GLYCOL 3350 17 GM PACKET. PO PRN (09:15)
[2019-02-20] MEDS ORDERED: LIDO:MAALOX 1:1 20 ML SINGLE DOSE. PO PRN (09:15)
--- NOTE | 2019-02-20 09:18 | PDOC ---
SURGICAL PROGRESS NOTE Subjective eating some breakfast minimal pain currently Vital Signs Vital Signs Date Time Temp Pulse Resp B/P (MAP) Pulse Ox O2 Delivery O2 Flow Rate FiO2 02/20/19 08:37 98 Room Air 02/20/19 07:00 97.9 78 16 164/81 (108) 97.9 02/19/19 19:10 2.0 I&O Intake and Output 02/20/19 06:59 Intake Total 1350 ml Balance 1350 ml Intake Oral 1350 ml # Voids 2 General: Alert, Oriented X3, Cooperative Abdomen: Soft, Other (ND) Labs Laboratory Tests Test 02/19/19 03:05 White Blood Count 8.5 x10^3/uL (4.0-11.0) Red Blood Count 4.57 x10^6/uL (3.50-5.40) Hemoglobin 13.4 g/dL (12.0-15.5) Hematocrit 41.2 % (36.0-47.0) Mean Corpuscular Volume 90 fL (79-100) Mean Corpuscular Hemoglobin 29 pg (25-35) Mean Corpuscular Hemoglobin Concent 33 g/dL (31-37) Red Cell Distribution Width 14.7 % (11.5-14.5) Platelet Count 141 x10^3/uL (140-400) Problem List Problems Medical Problems: (1) Acute kidney injury Status: Acute (2) Atypical chest pain Status: Acute (3) Elevated troponin I level Status: Acute (4) Syncope Status: Acute Assessment/Plan d/w Dr Damon--would tentatively plan micky after CT next week to ensure stability and improvement in hematoma Noted cards consult pending for intermittent bradycardia KATHRYN LR CRIMINAL PSYCHOLOGIST Feb 20, 2019 09:18
[2019-02-20] MEDS: MULTIVITAMIN with MINERAL TABLET. PO SCH (09:40)
--- NOTE | 2019-02-20 09:40 | PDOC ---
PROGRESS NOTES Subjective Subjective No new complaints. Objective Objective Vital Signs Date Time Temp Pulse Resp B/P (MAP) Pulse Ox O2 Delivery O2 Flow Rate FiO2 02/20/19 08:37 98 Room Air 02/20/19 07:00 97.9 78 16 164/81 (108) 97.9 02/19/19 19:10 2.0 Intake and Output 02/20/19 07:00 Intake Total 1350 ml Balance 1350 ml Intake Oral 1350 ml # Voids 2 Physical Exam Physical Exam She is alert,supine in bed and is comfortable and she is independent with her mobility and self care. Left ring finger nail bed infection seems to be healing. Assessment Assessment Problems Medical Problems: (1) Acute kidney injury Status: Acute (2) Atypical chest pain Status: Acute (3) Elevated troponin I level Status: Acute (4) Syncope Status: Acute Plan Plan of Jail when medically stable with out patient follow up. Comment Review of Relevant I have reviewed the following items tigre (where applicable) has been applied. Labs Laboratory Tests Test 02/19/19 03:05 White Blood Count 8.5 x10^3/uL (4.0-11.0) Red Blood Count 4.57 x10^6/uL (3.50-5.40) Hemoglobin 13.4 g/dL (12.0-15.5) Hematocrit 41.2 % (36.0-47.0) Mean Corpuscular Volume 90 fL (79-100) Mean Corpuscular Hemoglobin 29 pg (25-35) Mean Corpuscular Hemoglobin Concent 33 g/dL (31-37) Red Cell Distribution Width 14.7 % (11.5-14.5) Platelet Count 141 x10^3/uL (140-400) Microbiology 02/16/19 Urine Culture - Final, Complete 02/16/19 Urine Culture Result 1 (VIRAJ) - Final, Complete Medications Current Medications Morphine Sulfate (Morphine Sulfate) 4 mg PRN Q15MIN PRN IV/SQ PAIN GREATER THAN 3/10 Last administered on 02/16/19at 15:05; Start 02/16/19 at 13:30; Stop 02/17/19 at 07:10; Status DC Sodium Chloride 1,000 ml @ 125 mls/hr 1X ONCE IV Last administered on 02/16/19at 13:54; Start 02/16/19 at 14:00; Stop 02/16/19 at 21:59; Status DC Heparin Sodium (Porcine) (Heparin Sodium) 4,000 unit 1X ONCE IV Last administered on 02/16/19at 15:11; Start 02/16/19 at 15:15; Stop 02/16/19 at 15:16; Status DC Heparin Sodium/ Dextrose 500 ml @ 0 mls/hr CONT PRN IV PER PROTOCOL Last administered on 02/16/19at 15:16; Start 02/16/19 at 15:30; Stop 02/17/19 at 17:17; Status DC Heparin Sodium (Porcine) (Heparin Sodium) 1,950 unit PRN Q6HRS PRN IV FOR UFH LEVEL LESS THAN 0.2; Start 02/16/19 at 15:30; Stop 02/17/19 at 17:17; Status DC Ondansetron HCl (Zofran) 4 mg PRN Q8HRS PRN IV NAUSEA/VOMITING; Start 02/16/19 at 15:45; Stop 02/17/19 at 08:40; Status DC Morphine Sulfate (Morphine Sulfate) 4 mg PRN Q2HR PRN IV PAIN Last administered on 02/17/19at 11:43; Start 02/16/19 at 15:45; Stop 02/17/19 at 15:44; Status DC Sodium Chloride 1,000 ml @ 125 mls/hr Q8H IV Last administered on 02/17/19at 06:52; Start 02/16/19 at 15:31; Stop 02/17/19 at 15:30; Status DC Ceftriaxone Sodium (Rocephin) 1 gm Q24H IVP Last administered on 02/19/19at 21:43; Start 02/16/19 at 20:00 Amlodipine Besylate (Norvasc) 5 mg DAILY PO Last administered on 02/19/19at 08:14; Start 02/17/19 at 09:00 Aspirin (Ecotrin) 81 mg DAILY PO Last administered on 02/17/19at 09:29; Start 02/17/19 at 09:00; Stop 02/17/19 at 17:17; Status DC Vitamin D (Vitamin D3) 6,000 unit DAILY PO Last administered on 02/19/19at 11:07; Start 02/17/19 at 09:00 Acetaminophen/ Hydrocodone Bitart (Lortab 5/325) 1 tab PRN Q6HRS PRN PO MODERATE PAIN, SEVERE PAIN Last administered on 02/19/19 21:28; Start 02/16/19 at 19:30 Levothyroxine Sodium (Synthroid) 100 mcg DAILY07 PO Last administered on 02/20/19 07:46; Start 02/17/19 at 07:00 Multivitamins (Thera M Plus) 1 tab DAILY PO Last administered on 02/19/19 08:12; Start 02/17/19 at 09:00 Non-Formulary Medication (Vit A & D3 In Cod Liver Oil (Cod Liver Oil Softgel)) 1 each DAILY PO ; Start 02/17/19 at 09:00; Status UNV Diphenhydramine HCl (Benadryl) 25 mg PRN QHS PRN PO INSOMNIA; Start 02/16/19 at 21:15 Pantoprazole Sodium (Protonix) 40 mg DAILYAC PO Last administered on 02/20/19 07:46; Start 02/17/19 at 07:30 Albuterol/ Ipratropium (Duoneb) 3 ml RTQID NEB Last administered on 02/20/19 08:37; Start 02/17/19 at 08:00 Ondansetron HCl (Zofran) 4 mg PRN Q6HRS PRN IV NAUSEA/VOMITING; Start 02/17/19 at 08:45 Benzonatate (Tessalon Perle) 100 mg AXR100 PO Last administered on 02/19/19 08:12; Start 02/17/19 at 09:00; Stop 02/19/19 at 17:52; Status DC Guaifenesin (Robitussin Dm) 10 ml PRN Q6HRS PRN PO COUGH; Start 02/17/19 at 08:45 Tramadol HCl (Ultram) 50 mg PRN Q6HRS PRN PO MILD PAIN 1-3 Last administered on 02/19/19at 15:58; Start 02/17/19 at 08:45 Calcium Carbonate/ Glycine (Tums) 500 mg PRN AFTMEALHC PRN PO INDIGESTION Last administered on 02/17/19 11:56; Start 02/17/19 at 08:45 Temazepam (Restoril) 7.5 mg PRN QHS PRN PO INSOMNIA Last administered on 11/26/19at 21:29; Start 02/17/19 at 08:45 Nitroglycerin (Nitrostat) 0.4 mg PRN Q5MIN PRN SL CHEST PAIN Last administered on 02/17/19at 11:58; Start 02/17/19 at 12:00 Lactobacillus Rhamnosus (Culturelle) 1 cap BID PO Last administered on 02/19/19at 21:33; Start 02/17/19 at 21:00 Labetalol HCl (Normodyne Iv Push) 20 mg 1X ONCE IVP Last administered on 02/17/19at 18:40; Start 02/17/19 at 18:15; Stop 02/17/19 at 18:16; Status DC Labetalol HCl (Normodyne Iv Push) 20 mg PRN Q2HR PRN IVP HYPERTENSION Last administered on 02/18/19at 05:41; Start 02/17/19 at 18:15 Nicardipine HCl 50 mg/Sodium Chloride 250 ml @ 25 mls/hr CONT PRN IV SEE I/O RECORD; Start 02/17/19 at 18:15 Dicyclomine HCl (Bentyl) 10 mg PRN TID PRN PO STOMACH CRAMPING; Start 02/18/19 at 10:45 Sincalide 1.6 mcg/ Sodium Chloride 30 ml @ 120 mls/hr 1X ONCE IV Last administered on 02/18/19at 14:31; Start 02/18/19 at 14:30; Stop 02/18/19 at 14:44; Status DC Gadoterate Meglumine (Dotarem) 16 ml 1X ONCE IVP Last administered on 02/19/19at 10:02; Start 02/19/19 at 09:45; Stop 02/19/19 at 09:47; Status DC Benzonatate (Tessalon Perle) 100 mg PRN TID PRN PO COUGH; Start 02/19/19 at 18:00 Polyethylene Glycol (miraLAX PACKET) 17 gm PRN DAILY PRN PO CONSTIPATION, 1ST CHOICE; Start 02/20/19 at 09:15 Bisacodyl (Dulcolax Tab) 5 mg PRN DAILY PRN PO CONSTIPATION, 2ND CHOICE; Start 02/20/19 at 09:15 Multi-Ingredient Mouthwash/Gargle (Gi Cocktail) 20 ml PRN QID PRN PO upper abd pain; Start 02/20/19 at 09:15 Active Scripts Active Reported Cephalexin 500 Mg Capsule 500 Mg PO Q8HRS PRN Cod Liver Oil Softgel (Vit A & D3 In Cod Liver Oil) 1 Each Capsule 1 Each PO DAILY Women's 50 Plus Multivit Tab (Mv-Mn/Folic Acid/Calcium/Vit K) 1 Each Tablet 2 Each PO DAILY Vitamin D3 (Cholecalciferol (Vitamin D3)) 1,000 Unit Tablet 6,000 Unit PO DAILY Amlodipine Besylate 5 Mg Tablet 5 Mg PO DAILY Hydrocodone-Apap 5-325 (Hydrocodone Bit/Acetaminophen) 1 Each Tablet 1 Tab PO PRN Q6HRS PRN Aspir 81 (Aspirin) 81 Mg Tablet. 1 Tab PO DAILY Levothyroxine Sodium 100 Mcg Tablet 100 Mcg PO DAILY Vitals/I & O Vital Sign - Last 24 Hours 02/19/19 02/19/19 02/19/19 02/19/19 11:00 11:14 14:55 15:00 Temp 97.6 98.0 97.6 98.0 Pulse 65 71 Resp 18 16 18 B/P (MAP) 152/57 (88) 150/52 (84) Pulse Ox 98 96 96 96 O2 Delivery Room Air Room Air Room Air Room Air O2 Flow Rate 2.0 02/19/19 02/19/19 02/19/19 02/19/19 15:24 15:55 15:58 16:58 Resp Pulse Ox 97 97 97 97 O2 Delivery Room Air Room Air Room Air Room Air 02/19/19 02/19/19 02/19/19 02/19/19 19:00 19:10 19:36 23:20 Temp 98.5 98.7 98.5 98.7 Pulse 71 70 Resp 20 18 B/P (MAP) 168/67 (100) 136/50 (78) Pulse Ox 99 98 97 O2 Delivery Room Air Room Air Room Air Room Air O2 Flow Rate 2.0 02/20/19 02/20/19 02/20/19 03:28 07:00 08:37 Temp 98.2 97.9 98.2 97.9 Pulse 68 78 Resp 18 16 B/P (MAP) 137/58 (84) 164/81 (108) Pulse Ox 100 94 98 O2 Delivery Room Air Room Air Room Air Intake and Output 02/19/19 02/19/19 02/20/19 15:00 23:00 07:00 Intake Total 600 ml 750 ml Balance 600 ml 750 ml NATHAN WINTER MD Feb 20, 2019 09:40
[2019-02-20] MEDS: CHOLECALCIFEROL (VITAMIN D3) 1,000 UNIT TABLET PO SCH (09:41)
[2019-02-20] MEDS: LACTOBACILLUS RHAMNOSUS GG 1 CAPSULE. PO SCH (09:41)
[2019-02-20] MEDS: amLODIPine BESYLATE 5 MG TABLET PO SCH (09:41)
--- NOTE | 2019-02-20 10:09 | PDOC ---
PROGRESS NOTES Assessment Problems Medical Problems: (1) Acute kidney injury Status: Acute (2) Atypical chest pain Status: Acute (3) Elevated troponin I level Status: Acute (4) Syncope Status: Acute Syncope, doubt seizure. Patient with known cardiac disease. EEG was negative Small left subdural hematoma with 3 mm of midline shift Has had left arm pain and numbness for 4 months for which she is scheduled to see me 04/24 Right internal carotid artery 50-69 percent stenosis, left internal carotid artery 50 percent stenosis. G.I. and surgery are following for abdominal pain, she has some gallbladder sludge, mild common bile duct dilation, normal gallbladder ejection fraction Plan Does not need neurosurgery Neurosurgery recommends followup CT 1 week Cardiology is following as well Follow-up with me as scheduled Subjective no complaints Objective Vital Signs Date Time Temp Pulse Resp B/P (MAP) Pulse Ox O2 Delivery O2 Flow Rate FiO2 02/20/19 09:41 78 164/81 02/20/19 08:37 98 Room Air 02/20/19 07:00 97.9 16 97.9 02/19/19 19:10 2.0 Intake and Output 02/20/19 07:00 Intake Total 1350 ml Balance 1350 ml Intake Oral 1350 ml # Voids 2 PHYSICAL EXAM Alert. Oriented to time, place and person. PERRL. EOMI. CN: no focal findings. Muscle tone: normal. Muscle strength: 5/5 DTR: 1-2+ Plantar reflex: flexor Gait: not tested Sensory exam: no abnormal findings. No cerebellar signs elicited. Review of Relevant I have reviewed the following items tigre (where applicable) has been applied. Labs Laboratory Tests Test 02/19/19 03:05 White Blood Count 8.5 x10^3/uL (4.0-11.0) Red Blood Count 4.57 x10^6/uL (3.50-5.40) Hemoglobin 13.4 g/dL (12.0-15.5) Hematocrit 41.2 % (36.0-47.0) Mean Corpuscular Volume 90 fL (79-100) Mean Corpuscular Hemoglobin 29 pg (25-35) Mean Corpuscular Hemoglobin Concent 33 g/dL (31-37) Red Cell Distribution Width 14.7 % (11.5-14.5) Platelet Count 141 x10^3/uL (140-400) Microbiology 02/16/19 Urine Culture - Final, Complete 02/16/19 Urine Culture Result 1 (VIRAJ) - Final, Complete Medications Current Medications Morphine Sulfate (Morphine Sulfate) 4 mg PRN Q15MIN PRN IV/SQ PAIN GREATER THAN 3/10 Last administered on 02/16/19at 15:05; Start 02/16/19 at 13:30; Stop 02/17/19 at 07:10; Status DC Sodium Chloride 1,000 ml @ 125 mls/hr 1X ONCE IV Last administered on 02/16/19at 13:54; Start 02/16/19 at 14:00; Stop 02/16/19 at 21:59; Status DC Heparin Sodium (Porcine) (Heparin Sodium) 4,000 unit 1X ONCE IV Last administered on 02/16/19at 15:11; Start 02/16/19 at 15:15; Stop 02/16/19 at 15:16; Status DC Heparin Sodium/ Dextrose 500 ml @ 0 mls/hr CONT PRN IV PER PROTOCOL Last administered on 02/16/19at 15:16; Start 02/16/19 at 15:30; Stop 02/17/19 at 17:17; Status DC Heparin Sodium (Porcine) (Heparin Sodium) 1,950 unit PRN Q6HRS PRN IV FOR UFH LEVEL LESS THAN 0.2; Start 02/16/19 at 15:30; Stop 02/17/19 at 17:17; Status DC Ondansetron HCl (Zofran) 4 mg PRN Q8HRS PRN IV NAUSEA/VOMITING; Start 02/16/19 at 15:45; Stop 02/17/19 at 08:40; Status DC Morphine Sulfate (Morphine Sulfate) 4 mg PRN Q2HR PRN IV PAIN Last administered on 02/17/19at 11:43; Start 02/16/19 at 15:45; Stop 02/17/19 at 15:44; Status DC Sodium Chloride 1,000 ml @ 125 mls/hr Q8H IV Last administered on 02/17/19at 06:52; Start 02/16/19 at 15:31; Stop 02/17/19 at 15:30; Status DC Ceftriaxone Sodium (Rocephin) 1 gm Q24H IVP Last administered on 02/19/19at 21:43; Start 02/16/19 at 20:00 Amlodipine Besylate (Norvasc) 5 mg DAILY PO Last administered on 02/20/19 09:41; Start 02/17/19 at 09:00 Aspirin (Ecotrin) 81 mg DAILY PO Last administered on 02/17/19 09:29; Start 02/17/19 at 09:00; Stop 02/17/19 at 17:17; Status DC Vitamin D (Vitamin D3) 6,000 unit DAILY PO Last administered on 02/20/19 09:41; Start 02/17/19 at 09:00 Acetaminophen/ Hydrocodone Bitart (Lortab 5/325) 1 tab PRN Q6HRS PRN PO MODERATE PAIN, SEVERE PAIN Last administered on 02/19/19 21:28; Start 02/16/19 at 19:30 Levothyroxine Sodium (Synthroid) 100 mcg DAILY07 PO Last administered on 02/20/19 07:46; Start 02/17/19 at 07:00 Multivitamins (Thera M Plus) 1 tab DAILY PO Last administered on 02/20/19 09:40; Start 02/17/19 at 09:00 Non-Formulary Medication (Vit A & D3 In Cod Liver Oil (Cod Liver Oil Softgel)) 1 each DAILY PO ; Start 02/17/19 at 09:00; Status UNV Diphenhydramine HCl (Benadryl) 25 mg PRN QHS PRN PO INSOMNIA; Start 02/16/19 at 21:15 Pantoprazole Sodium (Protonix) 40 mg DAILYAC PO Last administered on 02/20/19 07:46; Start 02/17/19 at 07:30 Albuterol/ Ipratropium (Duoneb) 3 ml RTQID NEB Last administered on 02/20/19 08:37; Start 02/17/19 at 08:00 Ondansetron HCl (Zofran) 4 mg PRN Q6HRS PRN IV NAUSEA/VOMITING; Start 02/17/19 at 08:45 Benzonatate (Tessalon Perle) 100 mg [id number] PO Last administered on 02/19/19 08:12; Start 02/17/19 at 09:00; Stop 02/19/19 at 17:52; Status DC Guaifenesin (Robitussin Dm) 10 ml PRN Q6HRS PRN PO COUGH; Start 02/17/19 at 08:45 Tramadol HCl (Ultram) 50 mg PRN Q6HRS PRN PO MILD PAIN 1-3 Last administered on 02/19/19at 15:58; Start 02/17/19 at 08:45 Calcium Carbonate/ Glycine (Tums) 500 mg PRN AFTMEALHC PRN PO INDIGESTION Last administered on 02/17/19 11:56; Start 02/17/19 at 08:45 Temazepam (Restoril) 7.5 mg PRN QHS PRN PO INSOMNIA Last administered on 02/19/19 21:29; Start 02/17/19 at 08:45 Nitroglycerin (Nitrostat) 0.4 mg PRN Q5MIN PRN SL CHEST PAIN Last administered on 02/17/19 11:58; Start 02/17/19 at 12:00 Lactobacillus Rhamnosus (Culturelle) 1 cap BID PO Last administered on 02/20/19 09:41; Start 02/17/19 at 21:00 Labetalol HCl (Normodyne Iv Push) 20 mg 1X ONCE IVP Last administered on 02/17/19at 18:40; Start 02/17/19 at 18:15; Stop 02/17/19 at 18:16; Status DC Labetalol HCl (Normodyne Iv Push) 20 mg PRN Q2HR PRN IVP HYPERTENSION Last administered on 02/18/19at 05:41; Start 02/17/19 at 18:15 Nicardipine HCl 50 mg/Sodium Chloride 250 ml @ 25 mls/hr CONT PRN IV SEE I/O RECORD; Start 02/17/19 at 18:15 Dicyclomine HCl (Bentyl) 10 mg PRN TID PRN PO STOMACH CRAMPING; Start 02/18/19 at 10:45 Sincalide 1.6 mcg/ Sodium Chloride 30 ml @ 120 mls/hr 1X ONCE IV Last administered on 02/18/19at 14:31; Start 02/18/19 at 14:30; Stop 02/18/19 at 14:44; Status DC Gadoterate Meglumine (Dotarem) 16 ml 1X ONCE IVP Last administered on 02/19/19at 10:02; Start 02/19/19 at 09:45; Stop 02/19/19 at 09:47; Status DC Benzonatate (Tessalon Perle) 100 mg PRN TID PRN PO COUGH; Start 02/19/19 at 18:00 Polyethylene Glycol (miraLAX PACKET) 17 gm PRN DAILY PRN PO CONSTIPATION, 1ST CHOICE; Start 02/20/19 at 09:15 Bisacodyl (Dulcolax Tab) 5 mg PRN DAILY PRN PO CONSTIPATION, 2ND CHOICE; Start 02/20/19 at 09:15 Multi-Ingredient Mouthwash/Gargle (Gi Cocktail) 20 ml PRN QID PRN PO upper abd pain; Start 02/20/19 at 09:15 Active Scripts Active Reported Cephalexin 500 Mg Capsule 500 Mg PO Q8HRS PRN Cod Liver Oil Softgel (Vit A & D3 In Cod Liver Oil) 1 Each Capsule 1 Each PO DAILY Women's 50 Plus Multivit Tab (Mv-Mn/Folic Acid/Calcium/Vit K) 1 Each Tablet 2 Each PO DAILY Vitamin D3 (Cholecalciferol (Vitamin D3)) 1,000 Unit Tablet 6,000 Unit PO DAILY Amlodipine Besylate 5 Mg Tablet 5 Mg PO DAILY Hydrocodone-Apap 5-325 (Hydrocodone Bit/Acetaminophen) 1 Each Tablet 1 Tab PO PRN Q6HRS PRN Aspir 81 (Aspirin) 81 Mg Tablet. 1 Tab PO DAILY Levothyroxine Sodium 100 Mcg Tablet 100 Mcg PO DAILY Vitals/I & O Vital Sign - Last 24 Hours 02/19/19 02/19/19 02/19/19 02/19/19 11:00 11:14 14:55 15:00 Temp 97.6 98.0 97.6 98.0 Pulse 65 71 Resp 18 16 18 B/P (MAP) 152/57 (88) 150/52 (84) Pulse Ox 98 96 96 96 O2 Delivery Room Air Room Air Room Air Room Air O2 Flow Rate 2.0 02/19/19 02/19/19 02/19/19 02/19/19 15:24 15:55 15:58 16:58 Resp Pulse Ox 97 97 97 97 O2 Delivery Room Air Room Air Room Air Room Air 02/19/19 02/19/19 02/19/19 02/19/19 19:00 19:10 19:36 23:20 Temp 98.5 98.7 98.5 98.7 Pulse 71 70 Resp 20 18 B/P (MAP) 168/67 (100) 136/50 (78) Pulse Ox 99 98 97 O2 Delivery Room Air Room Air Room Air Room Air O2 Flow Rate 2.0 02/20/19 02/20/19 02/20/19 02/20/19 03:28 07:00 08:37 09:41 Temp 98.2 97.9 98.2 97.9 Pulse 68 78 78 Resp 18 16 B/P (MAP) 137/58 (84) 164/81 (108) 164/81 Pulse Ox 100 94 98 O2 Delivery Room Air Room Air Room Air Intake and Output 02/19/19 02/19/19 02/20/19 15:00 23:00 07:00 Intake Total 600 ml 750 ml Balance 600 ml 750 ml ABDIRIZAK FIGUEROA MD Feb 20, 2019 10:09
[2019-02-20 11:00] VITALS: BP 145/63
--- NOTE | 2019-02-20 13:26 | NUR ---
SW following pt. Discussed with RN and pt does not have any care home need for home health and is cleared by PT/OT. SW will be available as needed.
[2019-02-20] MEDS ORDERED: GUAI5SYR PO (14:38)
[2019-02-20] MEDS ORDERED: DICY10CA3 PO (14:38)
[2019-02-20] MEDS ORDERED: LACT1CAP19 PO (14:38)
[2019-02-20] MEDS ORDERED: PANT40TA77 PO (14:38)
[2019-02-20] MEDS ORDERED: CALC200T23 PO (14:38)
[2019-02-20] MEDS ORDERED: NITR0.4T24 SL (14:38)
[2019-02-20] MEDS ORDERED: IPRA3AMP29 NEB (14:38)
--- NOTE | 2019-02-20 14:40 | DISCH ---
DISCHARGE INSTRUCTIONS Condition on Discharge Condition on Discharge: Stable Activity After Discharge Activity Instructions for Disc: Activity as tolerated, Avoid exertion Lifting Instructions after Dis: No heavy lifting, No pulling or pushing, Do not lift >10 pounds Driving Instructions after Dis: Do not drive, Do not drive today Weight Bearing Status after Di: No restrictions Diet after Discharge Diet after Discharge: Cardiac Liquid Texture: Thin Liquid Wound Incision Care Wound/Incision Care: Keep wound/cast CDI Checks after Discharge Checks after discharge: Check blood press - daily, Check your Temp as needed Contacting the DR. after DC Call your doctor for: If your condition worsens Treatment/Equipment after DC Adaptive Equipment Issued: None CANDICE BAUER MD Feb 20, 2019 14:40
[2019-02-20 15:00] VITALS: BP 151/62
--- NOTE | 2019-02-20 15:12 | NUR ---
Cardiology Consult: Notified CRISTY Hall of consult when he was on the unit. He stated they have seen the pt and have signed off. Let him know about intermittent bradycardia. Relayed information to Dr. Espinoza prior to d/c, he requested Alli notate acct. Spoke with Alli, he stated he would notate acct.
--- NOTE | 2019-02-20 15:47 | PDOC ---
ELMER SOTO [employer] 02/20/19 1547: CARDIO Progress Notes Date and Time Date of Service 02/20/2019 Time of Evaluation 1300 Subjective Subjective: No Chest Pain, No shortness of breath, No Palpitations Vitals Vitals Vital Signs Date Time Temp Pulse Resp B/P (MAP) Pulse Ox O2 Delivery O2 Flow Rate FiO2 02/20/19 15:03 Room Air 02/20/19 11:00 98.0 73 16 145/63 (90) 98 98.0 02/19/19 19:10 2.0 Weight Weight [ ] Input and Output Intake and Output Intake and Output 02/20/19 07:00 Intake Total 1350 ml Balance 1350 ml Intake Oral 1350 ml # Voids 2 Microbiology Micro Microbiology 02/16/19 Urine Culture - Final, Complete 02/16/19 Urine Culture Result 1 (VIRAJ) - Final, Complete Physical Exam HEENT: Neck Supple W Full Motion Chest: Symmetric LUNGS: Clear to Auscultation Heart: S1S2, RRR (SR) Abdomen: Soft N/T Extremities: No Calf Tenderness Neurology: alert, oriented, follow commands Assessment Assessment 1. Traumatic fall sustaining small left subdural hematoma 2. Syncope: possibly from hypotension. No arrhythmia episodes as an inpt. 3. CAD; past stents, clinically stable 4. HTN: controlled 5. HLP 6. Abdominal pain: GB sludge, GI following 7. Known statin intolerance. mylagia 8. Hx of asymptomatic SB: per chart review hence no BB in regimen Recommendations 1. Syncope etiology is uncertain so far as she has not displayed any forms of ar rhythmias. This could be from HTN encephalopathy , orthostasis or vasovagal episode. At times she is noted with SB per staff but no significant bradyarrhythmias per tele review. I do see some intermittent PVCs. Prior to her admission she was also noted with SBP in the 70s. There has been no recurrence of syncope so far and no frequent dizziness, Agree with norvasc for BP control. Will repeat orthostatic readings. She will need an MCOT to note any concerning arrhythmias and also to check PVC burden. She recently seen Dr. Ferrer. Discussed this with RN and she will relay her MCOT need to Dr. Ferrer office. 2. Continue as per neurology and neurosurgery recommendation. 3. She will also need outpt start on ELLI Paris MD 02/20/19 1558: CARDIO Progress Notes Plan Plan Patient seen and examined. Agree with above nurse practitioner note. I do not suspect that her syncope was related to her bradycardia. This is likely related to a hypertensive episode Nonetheless, we will plan for an outpatient event recorder as she does not follow with Dr. Ferrer for cardiovascular issues and only sees her as a primary care physician She is low risk for lap micky. no further CV testing needed prior to lap micky. Thanks. ELMER STOO APRN Feb 20, 2019 15:47 ELLI MCDANIEL MD Feb 20, 2019 15:58
--- NOTE | 2019-02-20 16:17 | NUR ---
Orders: received phone call from CRISTY Hall. Wanted a set of orthostatics and to call Dr. Godwin's ofc for pt to get a MCOT. Spoke with Dr. Godwin, she wanted to speak with the cardiology team. Relayed info to CRISTY Burnham.
[2019-02-20 16:27] VITALS: BP 153/64
[2019-02-20 16:28] VITALS: BP_SYST 153; BP_SYST 184; BP_DIAS 66; BP_DIAS 85
--- NOTE | 2019-02-20 19:36 | NUR ---
Discharge Note: [facility] Discharge instructions and discharge home medications reviewed with Patient and a copy given. All questions have been answered and understanding verbalized. The following instructions and handouts were given: patient visit report, medication information, education. Discontinued lines and drains: peripheral IVs, tips intact. Patient discharged to home with self care via private vehicle. Patient left unit awake, in stable condition with all personal belongings.
== END 2019-02-20 18:00 | disposition home or self-care (01) | DRG 82 ==
LOC: ER 13:21 → 2 NORTH 15:26 → 1 WEST ICU 02-17 18:16 → 6 SOUTH 02-18 15:07
PROVIDERS: ADMIT Internal Medicine; ATTEND Internal Medicine
DX: S06.5X9A Traumatic subdural hemorrhage with loss of consciousness of unspecified duration, initial encounter (principal); N17.0 Acute kidney failure with tubular necrosis; N39.0 Urinary tract infection, site not specified; K83.8 Other specified diseases of biliary tract; I10 Essential (primary) hypertension; E03.9 Hypothyroidism, unspecified; E11.51 Type 2 diabetes mellitus with diabetic peripheral angiopathy without gangrene; M48.061 Spinal stenosis, lumbar region without neurogenic claudication; I25.10 Atherosclerotic heart disease of native coronary artery without angina pectoris; K21.9 Gastro-esophageal reflux disease without esophagitis; M19.90 Unspecified osteoarthritis, unspecified site; E78.5 Hyperlipidemia, unspecified; J44.9 Chronic obstructive pulmonary disease, unspecified; I48.91 Unspecified atrial fibrillation; G89.29 Other chronic pain; G31.9 Degenerative disease of nervous system, unspecified; Y93.89 Activity, other specified; Y92.89 Other specified places as the place of occurrence of the external cause; Y99.8 Other external cause status; I25.2 Old myocardial infarction; Z90.710 Acquired absence of both cervix and uterus; Z90.49 Acquired absence of other specified parts of digestive tract; Z95.5 Presence of coronary angioplasty implant and graft; Z87.891 Personal history of nicotine dependence; Z87.11 Personal history of peptic ulcer disease; Z79.82 Long term (current) use of aspirin; Z88.5 Allergy status to narcotic agent; Z91.012 Allergy to eggs; Z83.3 Family history of diabetes mellitus; Z82.49 Family history of ischemic heart disease and other diseases of the circulatory system; M51.36 Other intervertebral disc degeneration, lumbar region
CPT/HCPCS: 36415; 70450; 70553; 71045; 71250; 74176; 76705; 78227; 80047; 80048; 80053; 80061; 81001; 83690; 83735; 83880; 84484; 85014; 85018; 85025; 85027; 85520; 87086; 93005; 93880; 93970; 94640; 94760; 95816; 96361; 96365; 96366; 96375; 96376; A9537; A9575; J0696; J1644; J2270; J2805; J3490; J7030; J7620; 99285-25; G0378

== ENCOUNTER → 2019-02-27 | Outpatient (CLI) | payer MEDICARE ==
[2019-02-20 16:28] VITALS: BP 184/85
[~2019-02-27] MED LIST changes: +CALC200T23 PO; +CEPH500C PO; +DICY10CA3 PO; +GUAI5SYR PO; +IPRA3AMP29 NEB; +LACT1CAP19 PO; +NITR0.4T24 SL
--- NOTE | 2019-02-27 14:58 | RAD ---
CT HEAD WO CONTRAST Clinical indications: Follow-up of subdural hematoma COMPARISON: February 18, 2019. Technique: Noncontrast axial cross sectional scanning of the head was performed. PQRS compliance Statement One or more of the following individualized dose reduction techniques were utilized for this study: 1. Automated exposure control 2. Adjustment of the mA and/or kV according to patient size 3. Use of iterative reconstruction technique Findings: The previously seen mixed acute/subacute left sided subdural hematoma is again evident but is smaller in size and measures 4 mm in thickness.. No sulci compression or mass effect or midline shift is seen. No new hyperdense intracranial hemorrhage is evident. No hydrocephalus is seen. No new focal hypodense area is seen. No skull fracture or pneumocephalus is seen. No opacification of the mastoid sinuses or the middle ear cavities or the paranasal sinuses is seen. The maxillary sinuses are not completely seen in this study. Impression: Decrease in size of subdural hematoma seen previously. No new abnormality. Electronically signed by: Flakito Adorno MD (02/27/2019 2:55 PM) [facility]
== END | disposition home or self-care (01) ==
LOC: CT 09:12
PROVIDERS: ATTEND Psychiatry & Neurology Neurology with Special Qualifications in Child Neurology
DX: S06.5X9A Traumatic subdural hemorrhage with loss of consciousness of unspecified duration, initial encounter (principal); X58.XXXA Exposure to other specified factors, initial encounter; Y93.89 Activity, other specified; Y92.89 Other specified places as the place of occurrence of the external cause; Y99.8 Other external cause status
CPT/HCPCS: 70450